=== PATIENT | female | born 1960 | race Two or more races ===

== ENCOUNTER 2023-06-15 22:54 | Emergency (ER) | payer MEDICAID, OTHER ==
[~2023-06-15] VITALS: Ht 157.5 cm; Wt 91.0 kg
[2023-06-16] VITALS (10 sets, daily range): BP systolic 98–138; BP diastolic 47–69; PULSE 70–76; RESP 10–16; TEMP 97.6–98.4; O2SAT 99
[2023-06-16 00:04] LABS: Basophils # (auto) 0 10 ^3/uL (0-0.2); Eosinophils # (auto) 0 10 ^3/uL (0-0.8); Monocytes # (auto) 0.3 10 ^3/uL (0-1.3); Monocytes % (auto) 9.9 % (0.0-12.0)
[2023-06-16 00:06] LABS: Basophils % (auto) 0.4 % (0.0-2.0); Eosinophils % (auto) 0.7 % (0.0-7.0); Lymphocytes # (auto) 1.3 10 ^3/uL (0.4-5.4); Lymphocytes % (auto) 41.4 % (10.0-50.0); Mean Corpuscular Hemoglobin 36.5 pg (28.0-32.0); Mean Corpuscular Hgb Conc. 33.7 g/dL (32.0-36.0); Mean Corpuscular Volume 108.4 fL (80.0-100.0); Neutrophils # (auto) 1.4 10 ^3/uL (1.6-8.6); Neutrophils % (auto) 47.6 % (37.0-80.0); Nucleated Red Blood Cells % 0.2 %; Red Blood Cells 1.84 10^6/uL (4.0-5.20)
[2023-06-16 00:13] LABS: Red Cell Distribution Width 29.7 % (11.8-14.3)
[2023-06-16 00:16] LABS: Hemoglobin 6.7 g/dL (12.2-16.2)
[2023-06-16 00:19] LABS: Alanine Aminotransferase 10 U/L (7-40); Albumin 4.4 g/dL (3.2-4.8); Alkaline Phosphatase 81 U/L (46-116); Anion Gap 7.7 (5-15); Aspartate Aminotransferase < 8 U/L (13-40); BUN/Creatinine Ratio 7.6 (10.0-20.0); Bilirubin, Total 0.4 mg/dL (0.2-1.0); Blood Urea Nitrogen 8 mg/dL (9-23); Calcium 9.2 mg/dL (8.7-10.4); Carbon Dioxide 23.3 mmol/L (20-30); Chloride 108 mmol/L (98-107); Glucose 156 mg/dL (74-106); Potassium 3.9 mmol/L (3.5-5.1); Sodium 139 mmol/L (136-145)
[2023-06-16 01:39] LABS: Platelet Estimate Adequate
[2023-06-16 01:40] LABS: Anisocytosis Marked; Macrocytosis Moderate
== END 2023-06-16 02:11 | disposition home or self-care (01) ==
LOC: ER 22:57
DX: D53.9 Nutritional anemia, unspecified (principal)
CPT/HCPCS: 36415; 36430; 71045; 80053; 83880; 84484; 85025; 86850; 86900; 86901; 93005; 99285; P9016; 86922

== ENCOUNTER 2023-06-28 21:46 | Inpatient (IN) | payer MEDICAID ==
[~2023-06-28] VITALS: Ht 157.5 cm; Wt 90.7 kg
[2023-06-28] MEDS ORDERED: ACCU-CHEK COMFORT CURVE STRIP VI ONE (22:00)
[2023-06-29 00:03] LABS: Urine Bacteria NONE SEEN /hpf (None Seen); Urine Blood Negative /uL (Negative); Urine Clarity Clear (Clear); Urine Color Yellow (Yellow); Urine Protein, UAD Negative (Negative); Urine Specific Gravity 1.034 (1.001-1.035); Urine Urobilinogen Normal (Negative); Urine WBC <1 /hpf (0 - 5); Urine pH 6.5 (5.0-8.0)
[2023-06-29 00:23] LABS: Basophils # (auto) 0 10 ^3/uL (0-0.2); Eosinophils # (auto) 0 10 ^3/uL (0-0.8); Hematocrit 24.1 % (36.0-46.0); Lymphocytes # (auto) 1.8 10 ^3/uL (0.4-5.4); Monocytes # (auto) 0.4 10 ^3/uL (0-1.3); Neutrophils # (auto) 1.5 10 ^3/uL (1.6-8.6); White Blood Cell 3.7 10^3/uL (4.4-10.8)
[2023-06-29 00:24] LABS: Basophils % (auto) 0.2 % (0.0-2.0); Eosinophils % (auto) 0.2 % (0.0-7.0); Hemoglobin 8.2 g/dL (12.2-16.2); Lymphocytes % (auto) 48.6 % (10.0-50.0); Mean Corpuscular Hemoglobin 34.2 pg (28.0-32.0); Mean Corpuscular Hgb Conc. 33.9 g/dL (32.0-36.0); Monocytes % (auto) 10.2 % (0.0-12.0); Neutrophils % (auto) 40.8 % (37.0-80.0); Nucleated Red Blood Cells % 0.3 %; Red Blood Cells 2.38 10^6/uL (4.0-5.20)
[2023-06-29 00:36] LABS: Alanine Aminotransferase 13 U/L (7-40); Albumin 4.3 g/dL (3.2-4.8); Alkaline Phosphatase 76 U/L (46-116); Anion Gap 6.2 (5-15); Aspartate Aminotransferase 12 U/L (13-40); BUN/Creatinine Ratio 9.8 (10.0-20.0); Bilirubin, Total 0.3 mg/dL (0.2-1.0); Blood Urea Nitrogen 13 mg/dL (9-23); Calcium 9.2 mg/dL (8.7-10.4); Carbon Dioxide 26.8 mmol/L (20-30); Chloride 107 mmol/L (98-107); Glucose 147 mg/dL (74-106); Potassium 3.7 mmol/L (3.5-5.1); Red Cell Distribution Width 27.6 % (11.8-14.3); Sodium 140 mmol/L (136-145); Total Protein 7.8 g/dL (5.7-8.2)
[2023-06-29 01:50] LABS: Anisocytosis Moderate; Platelet Estimate Adequate
[2023-06-29 01:51] LABS: Large Platelets FEW; Macrocytosis Slight; Polychromasia Slight
[2023-06-29] MEDS ORDERED: MORPHINE SULFATE 4 MG/ML SYR/VIAL IV ONE (04:15)
[2023-06-29] MEDS ORDERED: PANTOPRAZOLE 40 MG/10 ML VIAL INJ IV ONE (04:15)
[2023-06-29] MEDS ORDERED: ONDANSETRON HCL 4 MG/2 ML VIAL IV ONE (04:15)
[2023-06-29] MEDS ORDERED: ASPirin 81 mg TAB PO ONE (05:00)
[2023-06-29] MEDS ORDERED: HYDROcodone-ACET 5/325MG TAB PO ONE (05:00)
[2023-06-29] MEDS ORDERED: MORPHINE SULFATE INJ 2 MG/ml SYRG IV PRN (05:15)
[2023-06-29] MEDS ORDERED: DEXTROSE (50%) 50ML SYRG IV PRN (05:15)
[2023-06-29] MEDS ORDERED: NITROGLYCERIN 0.4 MG SL TAB SL PRN (05:15)
[2023-06-29] MEDS ORDERED: ONDANSETRON HCL 4 MG/2 ML VIAL IV PRN (05:15)
[2023-06-29] MEDS ORDERED: ACETAMINOPHEN 325 MG TAB PO PRN (05:15)
[2023-06-29] MEDS: ACCU-CHEK COMFORT CURVE STRIP VI SCH ×4 (06:38→23:49)
[2023-06-29] MEDS: InsuLIN REG 1unit/0.01ml Soln (100units/ml) SC SCH ×4 (06:38→23:35)
[2023-06-29 06:41] LABS: INR 1.04 (0.9-1.15); Partial Thromboplastin Time 27.3 SEC (24.5-34.5); Prothrombin Time 10.9 sec (9.3-11.8)
[2023-06-29 06:42] LABS: % Iron Saturation 73.6 % (15-50)
[2023-06-29 07:45] LABS: Triglycerides 250 mg/dL (< 150)
[2023-06-29 07:46] LABS: LDL Cholesterol 90 mg/dL (< 100)
[2023-06-29 07:47] LABS: Cholesterol 166 mg/dL (< 200); HDL Cholesterol 39 mg/dL (40-59)
[2023-06-29 07:57] VITALS: PULSE 71; RESP 15; O2SAT 97
[2023-06-29] MEDS: ASPirin 81 mg TAB PO SCH (08:08)
[2023-06-29] MEDS: FERROUS SULFATE 325mg EC TAB PO SCH ×2 (08:11→18:00)
[2023-06-29] MEDS ORDERED: NITROGLYCERIN 0.4 MG SL TAB SL ONE (10:00)
[2023-06-29] MEDS ORDERED: ADENOSINE 76 MG in GIVE UN-DILUTED 0 ML IV STA (10:12)
[2023-06-29 10:55] LABS: Folate (Folic Acid) 11.94 ng/mL (>5.38)
[2023-06-29 13:00] VITALS: BP 119/66; PULSE 75; RESP 20; TEMP 97.8; O2SAT 97
[2023-06-29] MEDS: PANTOPRAZOLE 40 MG TAB PO SCH (14:21)
[2023-06-29] MEDS: NIFEdipine ER 30 MG TAB PO SCH (14:21)
[2023-06-29] MEDS: METOPROLOL SUCCINATE XL 50 MG TAB PO SCH (14:23)
[2023-06-29] MEDS: LISINOPRIL 20 MG TAB PO SCH (14:23)
[2023-06-29 14:30] VITALS: BP 119/61; PULSE 75; RESP 20; TEMP 97.9; O2SAT 97
[2023-06-29] MEDS ORDERED: CITA10TA8 PO (16:07)
[2023-06-29] MEDS ORDERED: GABA-339 PO (16:07)
[2023-06-29] MEDS ORDERED: METO25TA5 PO (16:07)
[2023-06-29] MEDS ORDERED: LISI40TA16 PO (16:07)
[2023-06-29 17:00] VITALS: BP 127/64; PULSE 72; RESP 18; TEMP 97.8; O2SAT 97
[2023-06-29 20:20] VITALS: PULSE 79
[2023-06-29] MEDS ORDERED: ATORVASTATIN 20 MG TAB PO SCH (22:00)
[2023-06-29 23:24] VITALS: BP 112/56; PULSE 80; RESP 18; TEMP 98.2; O2SAT 96
[2023-06-30 05:08] VITALS: BP 110/45; PULSE 77; RESP 18; TEMP 97.8; O2SAT 97
[2023-06-30] MEDS: InsuLIN REG 1unit/0.01ml Soln (100units/ml) SC SCH ×2 (05:29→12:04)
[2023-06-30] MEDS: ACCU-CHEK COMFORT CURVE STRIP VI SCH ×2 (05:29→12:03)
[2023-06-30 06:55] LABS: Chloride 110 mmol/L (98-107); Potassium 3.5 mmol/L (3.5-5.1); Sodium 142 mmol/L (136-145)
[2023-06-30 06:56] LABS: Anion Gap 5.1 (5-15); Carbon Dioxide 26.9 mmol/L (20-30)
[2023-06-30 06:57] LABS: Calcium 8.7 mg/dL (8.5-10.1)
[2023-06-30 07:01] LABS: BUN/Creatinine Ratio 13.5 (10.0-20.0); Blood Urea Nitrogen 12 mg/dL (9-23); Glucose 103 mg/dL (74-106)
[2023-06-30 07:26] LABS: Hemoglobin 7.3 g/dL (12.2-16.2); White Blood Cell 2.8 10^3/uL (4.4-10.8)
[2023-06-30 07:28] LABS: Hematocrit 20.9 % (36.0-46.0); Mean Corpuscular Hemoglobin 35.4 pg (28.0-32.0); Mean Corpuscular Hgb Conc. 34.9 g/dL (32.0-36.0); Mean Corpuscular Volume 101.4 fL (80.0-100.0); Red Blood Cells 2.07 10^6/uL (4.0-5.20)
[2023-06-30 07:36] LABS: Red Cell Distribution Width 27.1 % (11.8-14.3)
[2023-06-30 07:38] LABS: Band Neutrophils % (manual) 0; Basophils % (manual) 0 (0.0-2.0); Blast Cells 0; Eosinophils % (manual) 0 (0-7); Metamyelocytes % 0; Myelocytes % 0; Promyelocytes % 0; Reactive Lymphocytes 0
[2023-06-30 08:00] VITALS: PULSE 74
[2023-06-30 09:00] VITALS: BP 114/60; PULSE 76; RESP 15; TEMP 98; O2SAT 94
[2023-06-30] MEDS: FERROUS SULFATE 325mg EC TAB PO SCH (09:14)
[2023-06-30] MEDS: ASPirin 81 mg TAB PO SCH (09:15)
[2023-06-30] MEDS: NIFEdipine ER 30 MG TAB PO SCH (09:15)
[2023-06-30] MEDS: PANTOPRAZOLE 40 MG TAB PO SCH (09:15)
[2023-06-30] MEDS: METOPROLOL SUCCINATE XL 50 MG TAB PO SCH (09:17)
[2023-06-30] MEDS: LISINOPRIL 20 MG TAB PO SCH (09:18)
[2023-06-30 11:40] VITALS: BP 114/60; PULSE 76; RESP 15; TEMP 98; O2SAT 94
[2023-06-30 12:25] LABS: Lymphocytes % (manual) 62 (10.0-50.0); Monocytes % (manual) 9 (0-12)
[2023-06-30 12:26] LABS: Platelet Estimate Decreased
== END 2023-06-30 13:40 | disposition home or self-care (01) | DRG 203 ==
LOC: ER 21:47 → TELE 06-29 05:21 → TELE-CENTR 06-29 10:55
PROVIDERS: ADMIT Nurse Practitioner; ATTEND Internal Medicine Pulmonary Disease
DX: M94.0 Chondrocostal junction syndrome [Tietze] (principal); I24.9 Acute ischemic heart disease, unspecified; N17.9 Acute kidney failure, unspecified; I13.0 Hypertensive heart and chronic kidney disease with heart failure and stage 1 through stage 4 chronic kidney disease, or unspecified chronic kidney disease; I50.30 Unspecified diastolic (congestive) heart failure; I69.351 Hemiplegia and hemiparesis following cerebral infarction affecting right dominant side; E11.22 Type 2 diabetes mellitus with diabetic chronic kidney disease; D50.0 Iron deficiency anemia secondary to blood loss (chronic); E78.5 Hyperlipidemia, unspecified; E66.9 Obesity, unspecified; N18.30 Chronic kidney disease, stage 3 unspecified; F17.200 Nicotine dependence, unspecified, uncomplicated; Z79.4 Long term (current) use of insulin; Z68.36 Body mass index [BMI] 36.0-36.9, adult
CPT/HCPCS: 36415; 71045; 78452; 80048; 80053; 80061; 81001; 82607; 82728; 82746; 82962; 83036; 83540; 83550; 83690; 83735; 83880; 84443; 84484; 85007; 85025; 85027; 85045; 85610; 85730; 93017; 93306; 99291; G0378; J0153; J1815

== ENCOUNTER 2023-08-01 10:29 | Inpatient (IN) | payer MEDICAID ==
[2023-08-01] VITALS (10 sets, daily range): BP systolic 82–119; BP diastolic 29–80; PULSE 102–147; RESP 16–35; TEMP 97.8–98.4; O2SAT 92–100
[~2023-08-01] VITALS: Ht 157.5 cm; Wt 97.0 kg
[~2023-08-01 10:29] MED LIST: CITA10TA8 PO; GABA-339 PO; LISI40TA16 PO; METO25TA5 PO
[2023-08-01 11:17] LABS: Basophils # (auto) 0 10 ^3/uL (0-0.2); Eosinophils # (auto) 0 10 ^3/uL (0-0.8); Monocytes # (auto) 0.6 10 ^3/uL (0-1.3)
[2023-08-01 11:19] LABS: Basophils % (auto) 0.1 % (0.0-2.0); Hematocrit 14.3 % (36.0-46.0); Lymphocytes # (auto) 0.6 10 ^3/uL (0.4-5.4); Lymphocytes % (auto) 8.9 % (10.0-50.0); Mean Corpuscular Hemoglobin 36.7 pg (28.0-32.0); Mean Corpuscular Volume 108.2 fL (80.0-100.0); Monocytes % (auto) 10.1 % (0.0-12.0); Neutrophils # (auto) 5.1 10 ^3/uL (1.6-8.6); Neutrophils % (auto) 80.9 % (37.0-80.0); Nucleated Red Blood Cells % 0.2 %; Red Blood Cells 1.32 10^6/uL (4.0-5.20); White Blood Cell 6.4 10^3/uL (4.4-10.8)
[2023-08-01 11:25] LABS: Hemoglobin 4.9 g/dL (12.2-16.2); Red Cell Distribution Width 28.1 % (11.8-14.3)
[2023-08-01 11:31] LABS: Alanine Aminotransferase 17 U/L (7-40); Alkaline Phosphatase 68 U/L (46-116); Anion Gap 9 (5-15); Aspartate Aminotransferase 13 U/L (13-40); BUN/Creatinine Ratio 11.9 (10.0-20.0); Bilirubin, Total 0.7 mg/dL (0.2-1.0); Blood Urea Nitrogen 13 mg/dL (9-23); Calcium 8.4 mg/dL (8.5-10.1); Carbon Dioxide 23 mmol/L (20-30); Chloride 107 mmol/L (98-107); Glucose 271 mg/dL (74-106); Potassium 3.8 mmol/L (3.5-5.1); Sodium 139 mmol/L (136-145); Total Protein 7.3 g/dL (5.7-8.2)
[2023-08-01] MEDS ORDERED: ONDANSETRON HCL 4 MG/2 ML VIAL IV ONE (12:00)
[2023-08-01] MEDS ORDERED: HYDROmorphone HCL 2 MG/ML VL/or syr IV ONE (12:00)
[2023-08-01] MEDS ORDERED: SODIUM CHLORIDE 0.9% 1,000 ML IVB ONE (12:00)
[2023-08-01] MEDS ORDERED: PANTOPRAZOLE 40 MG/10 ML VIAL INJ IV ONE (12:00)
[2023-08-01 12:12] LABS: % Iron Saturation 49.6 % (15-50)
[2023-08-01 12:29] LABS: Ferritin > 1650.0 ng/mL (10-291)
[2023-08-01 12:29] LABS: Lactic Acid w/Reflex 2.4 mmol/L (0.4-2.0)
[2023-08-01] MEDS ORDERED: ONDANSETRON HCL 4 MG/2 ML VIAL IV PRN (13:45)
[2023-08-01] MEDS ORDERED: ACETAMINOPHEN 325 MG TAB PO PRN (13:45)
[2023-08-01] MEDS ORDERED: DOCUSATE SOD 100 MG CAP PO PRN (13:45)
[2023-08-01] MEDS ORDERED: MORPHINE SULFATE INJ 2 MG/ml SYRG IV PRN ×2 (13:45)
[2023-08-01] MEDS ORDERED: DEXTROSE (50%) 50ML SYRG IV PRN (13:45)
[2023-08-01] MEDS ORDERED: NITROGLYCERIN 0.4 MG SL TAB SL PRN (13:45)
[2023-08-01 14:15] LABS: INR 1.19 (0.9-1.15); Prothrombin Time 12.4 sec (9.3-11.8)
[2023-08-01] MEDS ORDERED: cefTRIAXone 1GM/50ML D5W 50 ML IV ONE (14:30)
[2023-08-01] MEDS: SODIUM CHLORIDE 0.9% 1,000 ML IV SCH (14:45)
[2023-08-01] MEDS ORDERED: METO25TA93 PO (14:50)
[2023-08-01] MEDS ORDERED: EMPA1TAB PO (14:50)
[2023-08-01] MEDS ORDERED: METF-370 PO (14:50)
[2023-08-01] MEDS ORDERED: ATOR10TA52 PO (14:50)
[2023-08-01] MEDS ORDERED: NIFE1TAB31 PO (14:50)
[2023-08-01] MEDS ORDERED: AZITHROMYCIN 500MG/ 250ML 250 ML IV ONE (15:30)
[2023-08-01] MEDS: ACCU-CHEK COMFORT CURVE STRIP VI SCH ×2 (17:00→22:00)
[2023-08-01] MEDS: InsuLIN REG 1unit/0.01ml Soln (100units/ml) SC SCH ×2 (17:00→22:35)
[2023-08-01 21:54] LABS: Hemoglobin 6.6 g/dL (12.2-16.2)
[2023-08-01] MEDS: ATORVASTATIN 20 MG TAB PO SCH (22:35)
[2023-08-01] MEDS: TEMAZEPAM 15 MG CAP PO PRN (22:35)
[2023-08-01] MEDS: HYDROcodone-ACET 5/325MG TAB PO PRN (22:36)
[2023-08-02] VITALS (16 sets, daily range): BP systolic 86–124; BP diastolic 36–71; PULSE 88–109; RESP 15–24; TEMP 97.8–101; O2SAT 90–100
[2023-08-02 04:20] LABS: Urine Bacteria NONE SEEN /hpf (None Seen); Urine Blood Negative /uL (Negative); Urine Clarity HAZY (Clear); Urine Color Yellow (Yellow); Urine Hyaline Cast MANY /lpf (0 - 2); Urine Mucus FEW (None Seen); Urine Protein, UAD 1+ (Negative); Urine Specific Gravity 1.021 (1.001-1.035); Urine Urobilinogen Normal (Negative); Urine WBC 6 /hpf (0 - 5); Urine pH 5.5 (5.0-8.0)
[2023-08-02] MEDS: SODIUM CHLORIDE 0.9% 1,000 ML IV SCH ×2 (04:34→17:06)
[2023-08-02 05:27] LABS: Basophils # (auto) 0 10 ^3/uL (0-0.2); Basophils % (auto) 0.1 % (0.0-2.0); Eosinophils # (auto) 0 10 ^3/uL (0-0.8); Hematocrit 24.8 % (36.0-46.0); Hemoglobin 8.6 g/dL (12.2-16.2); Lymphocytes # (auto) 0.9 10 ^3/uL (0.4-5.4); Lymphocytes % (auto) 11.9 % (10.0-50.0); Mean Corpuscular Hgb Conc. 34.8 g/dL (32.0-36.0); Mean Corpuscular Volume 97.7 fL (80.0-100.0); Monocytes # (auto) 0.7 10 ^3/uL (0-1.3); Neutrophils # (auto) 5.8 10 ^3/uL (1.6-8.6); Red Blood Cells 2.54 10^6/uL (4.0-5.20); White Blood Cell 7.4 10^3/uL (4.4-10.8)
[2023-08-02 05:35] LABS: Red Cell Distribution Width 22.4 % (11.8-14.3)
[2023-08-02 05:43] LABS: Alanine Aminotransferase 38 U/L (7-40); Albumin 3.6 g/dL (3.2-4.8); Alkaline Phosphatase 74 U/L (46-116); Anion Gap 7 (5-15); Aspartate Aminotransferase 72 U/L (13-40); BUN/Creatinine Ratio 20.9 (10.0-20.0); Bilirubin, Total 0.8 mg/dL (0.2-1.0); Blood Urea Nitrogen 23 mg/dL (9-23); Calcium 7.6 mg/dL (8.7-10.4); Carbon Dioxide 24 mmol/L (20-30); Chloride 107 mmol/L (98-107); Glucose 126 mg/dL (74-106); Potassium 4.4 mmol/L (3.5-5.1); Sodium 138 mmol/L (136-145); Total Protein 6.6 g/dL (5.7-8.2)
[2023-08-02] MEDS ORDERED: FUROSEMIDE 40 MG/4 ML VIAL IV ONE (06:00)
[2023-08-02] MEDS ORDERED: ENOXAPARIN SOD 100 MG/1 ML SYRINGE SC ONE (06:15)
[2023-08-02] MEDS: HYDROcodone-ACET 5/325MG TAB PO PRN (06:20)
[2023-08-02] MEDS: ACCU-CHEK COMFORT CURVE STRIP VI SCH ×4 (06:45→21:08)
[2023-08-02] MEDS: InsuLIN REG 1unit/0.01ml Soln (100units/ml) SC SCH ×4 (06:45→21:09)
[2023-08-02 07:00] LABS: COVID19 ANTIGEN SOFIA FIA NEGATIVE (NEGATIVE)
[2023-08-02] MEDS ORDERED: IOHEXOL 350 MG/ML 100ML IJ ONE (07:27)
[2023-08-02] MEDS: cefTRIAXone 1GM/50ML D5W 50 ML IV SCH (09:30)
[2023-08-02] MEDS ORDERED: NIFEdipine ER 30 MG TAB PO SCH (10:00)
[2023-08-02] MEDS ORDERED: METOPROLOL SUCCINATE XL 50 MG TAB PO SCH (10:00)
[2023-08-02] MEDS ORDERED: LISINOPRIL 20 MG TAB PO SCH (10:00)
[2023-08-02] MEDS: AZITHROMYCIN 500MG/ 250ML 250 ML IV SCH (10:29)
[2023-08-02] MEDS: GABAPENTIN 300 MG CAP PO SCH (10:30)
[2023-08-02] MEDS: ASPirin 81 mg TAB PO SCH (10:30)
[2023-08-02] MEDS: PANTOPRAZOLE 40 MG TAB PO SCH (10:30)
[2023-08-02] MEDS: CITALOPRAM HYDROBR 20 MG TAB PO SCH (10:30)
[2023-08-02] MEDS: CARVEDILOL 12.5 MG TAB PO SCH ×2 (10:40→20:55)
[2023-08-02] MEDS: TEMAZEPAM 15 MG CAP PO PRN (20:54)
[2023-08-02] MEDS: ATORVASTATIN 20 MG TAB PO SCH (20:54)
[2023-08-03] VITALS (11 sets, daily range): BP systolic 102–127; BP diastolic 55–60; PULSE 77–93; RESP 14–19; TEMP 98.1–98.9; O2SAT 93–100
[2023-08-03] MEDS: ACCU-CHEK COMFORT CURVE STRIP VI SCH ×4 (06:13→22:00)
[2023-08-03 06:14] LABS: Basophils # (auto) 0 10 ^3/uL (0-0.2); Basophils % (auto) 0.1 % (0.0-2.0); Eosinophils # (auto) 0 10 ^3/uL (0-0.8); Hemoglobin 7.6 g/dL (12.2-16.2); Lymphocytes % (auto) 15.4 % (10.0-50.0); Monocytes # (auto) 0.6 10 ^3/uL (0-1.3); Neutrophils # (auto) 4.9 10 ^3/uL (1.6-8.6); White Blood Cell 6.5 10^3/uL (4.4-10.8)
[2023-08-03 06:15] LABS: Mean Corpuscular Hemoglobin 33.9 pg (28.0-32.0); Mean Corpuscular Hgb Conc. 34.5 g/dL (32.0-36.0); Mean Corpuscular Volume 98.3 fL (80.0-100.0); Monocytes % (auto) 9.3 % (0.0-12.0); Neutrophils % (auto) 75.2 % (37.0-80.0); Nucleated Red Blood Cells % 0.1 %; Red Blood Cells 2.24 10^6/uL (4.0-5.20)
[2023-08-03 06:17] LABS: Red Cell Distribution Width 22.4 % (11.8-14.3)
[2023-08-03 06:28] LABS: % Iron Saturation 48.1 % (15-50); Alanine Aminotransferase 45 U/L (7-40); Albumin 3.6 g/dL (3.2-4.8); Alkaline Phosphatase 62 U/L (46-116); Anion Gap 9 (5-15); Aspartate Aminotransferase 52 U/L (13-40); BUN/Creatinine Ratio 15.1 (10.0-20.0); Bilirubin, Total 0.9 mg/dL (0.2-1.0); Blood Urea Nitrogen 13 mg/dL (9-23); Calcium 8.1 mg/dL (8.5-10.1); Carbon Dioxide 21 mmol/L (20-30); Chloride 105 mmol/L (98-107); Glucose 180 mg/dL (74-106); Potassium 3.8 mmol/L (3.5-5.1); Sodium 135 mmol/L (136-145); Total Protein 6.7 g/dL (5.7-8.2)
[2023-08-03] MEDS: SODIUM CHLORIDE 0.9% 1,000 ML IV SCH ×2 (06:47→20:05)
[2023-08-03] MEDS: IPRATROPIUM BROM 0.5 MG/2.5ML INH SOL NEB PRN (06:48)
[2023-08-03] MEDS: InsuLIN REG 1unit/0.01ml Soln (100units/ml) SC SCH ×4 (06:48→22:03)
[2023-08-03] MEDS: ALBUTEROL SULF 2.5 MG/0.5ML(0.5%) NEB SOLN NEB PRN (06:48)
[2023-08-03] MEDS: CARVEDILOL 12.5 MG TAB PO SCH ×2 (09:42→21:59)
[2023-08-03] MEDS: CITALOPRAM HYDROBR 20 MG TAB PO SCH (09:42)
[2023-08-03] MEDS: ASPirin 81 mg TAB PO SCH (09:42)
[2023-08-03] MEDS: PANTOPRAZOLE 40 MG TAB PO SCH (09:42)
[2023-08-03] MEDS: GABAPENTIN 300 MG CAP PO SCH (09:42)
[2023-08-03] MEDS ORDERED: ENOXAPARIN SOD 100 MG/1 ML SYRINGE SC SCH (10:00)
[2023-08-03] MEDS: AZITHROMYCIN 500MG/ 250ML 250 ML IV SCH (10:26)
[2023-08-03] MEDS: cefTRIAXone 1GM/50ML D5W 50 ML IV SCH (10:26)
[2023-08-03] MEDS: FUROSEMIDE 40 MG/4 ML VIAL IV SCH (10:27)
[2023-08-03 10:56] LABS: Triglycerides 95 mg/dL (< 150)
[2023-08-03 10:57] LABS: LDL Cholesterol 61 mg/dL (< 100)
[2023-08-03 10:58] LABS: Cholesterol 119 mg/dL (< 200); HDL Cholesterol 39 mg/dL (40-59)
[2023-08-03] MEDS: ATORVASTATIN 20 MG TAB PO SCH (22:00)
[2023-08-04] VITALS (13 sets, daily range): BP systolic 103–119; BP diastolic 44–63; PULSE 81–92; RESP 16–20; TEMP 97.6–98.8; O2SAT 93–100
[2023-08-04] MEDS: TEMAZEPAM 15 MG CAP PO PRN (00:49)
[2023-08-04] MEDS: ACCU-CHEK COMFORT CURVE STRIP VI SCH ×4 (06:13→22:50)
[2023-08-04] MEDS: InsuLIN REG 1unit/0.01ml Soln (100units/ml) SC SCH ×4 (06:26→22:41)
[2023-08-04] MEDS: IPRATROPIUM BROM 0.5 MG/2.5ML INH SOL NEB PRN (06:32)
[2023-08-04] MEDS: ALBUTEROL SULF 2.5 MG/0.5ML(0.5%) NEB SOLN NEB PRN (06:32)
[2023-08-04 06:49] LABS: Basophils # (auto) 0 10 ^3/uL (0-0.2); Basophils % (auto) 0.1 % (0.0-2.0); Eosinophils # (auto) 0 10 ^3/uL (0-0.8); Eosinophils % (auto) 0.3 % (0.0-7.0); Hematocrit 42.1 % (36.0-46.0); Hemoglobin 13.8 g/dL (12.2-16.2); Lymphocytes # (auto) 1.9 10 ^3/uL (0.4-5.4); Lymphocytes % (auto) 17.9 % (10.0-50.0); Mean Corpuscular Hemoglobin 30.9 pg (28.0-32.0); Mean Corpuscular Hgb Conc. 32.9 g/dL (32.0-36.0); Mean Corpuscular Volume 93.8 fL (80.0-100.0); Monocytes # (auto) 1.1 10 ^3/uL (0-1.3); Neutrophils # (auto) 7.7 10 ^3/uL (1.6-8.6); Neutrophils % (auto) 71.7 % (37.0-80.0); Nucleated Red Blood Cells % 0.1 %; Red Blood Cells 4.49 10^6/uL (4.0-5.20); Red Cell Distribution Width 13.7 % (11.8-14.3); White Blood Cell 10.7 10^3/uL (4.4-10.8)
[2023-08-04] MEDS: CITALOPRAM HYDROBR 20 MG TAB PO SCH (09:12)
[2023-08-04] MEDS: cefTRIAXone 1GM/50ML D5W 50 ML IV SCH (09:12)
[2023-08-04] MEDS: PANTOPRAZOLE 40 MG TAB PO SCH (09:12)
[2023-08-04] MEDS: GABAPENTIN 300 MG CAP PO SCH (09:12)
[2023-08-04] MEDS: CARVEDILOL 12.5 MG TAB PO SCH ×2 (09:13→22:47)
[2023-08-04] MEDS: SODIUM CHLORIDE 0.9% 1,000 ML IV SCH ×2 (09:13→22:51)
[2023-08-04] MEDS: AZITHROMYCIN 500MG/ 250ML 250 ML IV SCH (09:46)
[2023-08-04] MEDS: FUROSEMIDE 40 MG/4 ML VIAL IV SCH (10:00)
[2023-08-04] MEDS: ATORVASTATIN 20 MG TAB PO SCH (22:44)
[2023-08-05] VITALS (12 sets, daily range): BP systolic 105–131; BP diastolic 51–68; PULSE 62–86; RESP 16–20; TEMP 97.4–98.8; O2SAT 95–99
[2023-08-05 06:23] LABS: Basophils # (auto) 0 10 ^3/uL (0-0.2); Basophils % (auto) 0.1 % (0.0-2.0); Eosinophils # (auto) 0 10 ^3/uL (0-0.8); Lymphocytes # (auto) 0.9 10 ^3/uL (0.4-5.4); Monocytes # (auto) 0.6 10 ^3/uL (0-1.3); White Blood Cell 4.9 10^3/uL (4.4-10.8)
[2023-08-05 06:27] LABS: Eosinophils % (auto) 0.1 % (0.0-7.0); Hematocrit 19.8 % (36.0-46.0); Mean Corpuscular Hemoglobin 34.1 pg (28.0-32.0); Mean Corpuscular Hgb Conc. 34.5 g/dL (32.0-36.0); Monocytes % (auto) 11.6 % (0.0-12.0); Neutrophils # (auto) 3.4 10 ^3/uL (1.6-8.6); Neutrophils % (auto) 70.2 % (37.0-80.0); Nucleated Red Blood Cells % 0.1 %; Red Cell Distribution Width 22.1 % (11.8-14.3)
[2023-08-05] MEDS: InsuLIN REG 1unit/0.01ml Soln (100units/ml) SC SCH ×4 (06:27→21:49)
[2023-08-05] MEDS: ACCU-CHEK COMFORT CURVE STRIP VI SCH ×4 (06:28→21:50)
[2023-08-05 06:35] LABS: Hemoglobin 6.8 g/dL (12.2-16.2)
[2023-08-05] MEDS ORDERED: LIDOCAINE 2%HCL (LOCAL ANESTH.) INJ 10ml MDV ONE (08:43)
[2023-08-05] MEDS ORDERED: fentaNYL CITRATE 100 MCG/2 ML VL IV ONE (08:45)
[2023-08-05] MEDS ORDERED: MIDAZOLAM HCL 2MG/2ML 2ml VIAL (1mg/ml) IV ONE (08:45)
[2023-08-05] MEDS ORDERED: MIDAZOLAM HCL 2MG/2ML 2ml VIAL (1mg/ml) ONE (08:50)
[2023-08-05] MEDS ORDERED: fentaNYL CITRATE 100 MCG/2 ML VL ONE (08:50)
[2023-08-05] MEDS: GABAPENTIN 300 MG CAP PO SCH (10:09)
[2023-08-05] MEDS: cefTRIAXone 1GM/50ML D5W 50 ML IV SCH (10:09)
[2023-08-05] MEDS: CITALOPRAM HYDROBR 20 MG TAB PO SCH (10:09)
[2023-08-05] MEDS: CARVEDILOL 12.5 MG TAB PO SCH ×2 (10:09→21:50)
[2023-08-05] MEDS: PANTOPRAZOLE 40 MG TAB PO SCH (10:09)
[2023-08-05] MEDS: AZITHROMYCIN 500MG/ 250ML 250 ML IV SCH (10:10)
[2023-08-05] MEDS: FUROSEMIDE 40 MG/4 ML VIAL IV SCH (10:10)
[2023-08-05] MEDS: SODIUM CHLORIDE 0.9% 1,000 ML IV SCH (12:05)
[2023-08-05] MEDS: ATORVASTATIN 20 MG TAB PO SCH (21:48)
[2023-08-05] MEDS: ZOLPIDEM TARTRATE 5 MG TAB PO PRN (21:54)
[2023-08-06] VITALS (15 sets, daily range): BP systolic 106–155; BP diastolic 52–77; PULSE 72–81; RESP 16–22; TEMP 98.1–98.9; O2SAT 95–99
[2023-08-06 05:29] LABS: Basophils # (auto) 0 10 ^3/uL (0-0.2); Basophils % (auto) 0.1 % (0.0-2.0); Eosinophils # (auto) 0 10 ^3/uL (0-0.8); Eosinophils % (auto) 0.3 % (0.0-7.0); Hematocrit 20.4 % (36.0-46.0); Hemoglobin 7.1 g/dL (12.2-16.2); Lymphocytes # (auto) 1.2 10 ^3/uL (0.4-5.4); Lymphocytes % (auto) 24.7 % (10.0-50.0); Mean Corpuscular Hemoglobin 33.7 pg (28.0-32.0); Mean Corpuscular Hgb Conc. 34.6 g/dL (32.0-36.0); Mean Corpuscular Volume 97.3 fL (80.0-100.0); Monocytes # (auto) 0.6 10 ^3/uL (0-1.3); Monocytes % (auto) 12.1 % (0.0-12.0); Neutrophils # (auto) 3.2 10 ^3/uL (1.6-8.6); Neutrophils % (auto) 62.8 % (37.0-80.0); Nucleated Red Blood Cells % 0.1 %
[2023-08-06 05:30] LABS: Red Cell Distribution Width 20.7 % (11.8-14.3)
[2023-08-06 05:43] LABS: Alanine Aminotransferase 45 U/L (7-40); Albumin 3.6 g/dL (3.2-4.8); Alkaline Phosphatase 98 U/L (46-116); Anion Gap 5 (5-15); Aspartate Aminotransferase 24 U/L (13-40); BUN/Creatinine Ratio 17.9 (10.0-20.0); Bilirubin, Total 0.5 mg/dL (0.2-1.0); Blood Urea Nitrogen 14 mg/dL (9-23); Calcium 8.4 mg/dL (8.7-10.4); Carbon Dioxide 26 mmol/L (20-30); Chloride 107 mmol/L (98-107); Potassium 3.5 mmol/L (3.5-5.1); Sodium 138 mmol/L (136-145); Total Protein 6.6 g/dL (5.7-8.2)
[2023-08-06] MEDS: ACCU-CHEK COMFORT CURVE STRIP VI SCH ×4 (05:54→21:23)
[2023-08-06] MEDS: SODIUM CHLORIDE 0.9% 1,000 ML IV SCH ×2 (05:54→14:45)
[2023-08-06] MEDS: InsuLIN REG 1unit/0.01ml Soln (100units/ml) SC SCH ×4 (05:55→21:26)
[2023-08-06 07:34] LABS: Glucose 211 mg/dL (74-106)
[2023-08-06 09:35] LABS: Hepatitis B Core Total AB Negative (Negative)
[2023-08-06] MEDS: IPRATROPIUM BROM 0.5 MG/2.5ML INH SOL NEB PRN (09:35)
[2023-08-06] MEDS: ALBUTEROL SULF 2.5 MG/0.5ML(0.5%) NEB SOLN NEB PRN (09:35)
[2023-08-06] MEDS: FUROSEMIDE 40 MG/4 ML VIAL IV SCH (10:28)
[2023-08-06] MEDS: cefTRIAXone 1GM/50ML D5W 50 ML IV SCH (10:29)
[2023-08-06] MEDS: CARVEDILOL 12.5 MG TAB PO SCH ×2 (10:29→21:13)
[2023-08-06] MEDS: GABAPENTIN 300 MG CAP PO SCH (10:29)
[2023-08-06] MEDS: CITALOPRAM HYDROBR 20 MG TAB PO SCH (10:30)
[2023-08-06] MEDS: PANTOPRAZOLE 40 MG TAB PO SCH (10:30)
[2023-08-06 11:01] LABS: Hepatitis A Total Antibody Positive (Negative); Hepatitis B Surface Antibody Negative (Negative); Hepatitis C Antibody Negative (Negative)
[2023-08-06 11:02] LABS: Hepatitis B Surface Antigen Negative (Negative)
[2023-08-06] MEDS: AZITHROMYCIN 500MG/ 250ML 250 ML IV SCH (12:36)
[2023-08-06] MEDS: ATORVASTATIN 20 MG TAB PO SCH (21:12)
[2023-08-06] MEDS: ZOLPIDEM TARTRATE 5 MG TAB PO PRN (21:28)
[2023-08-07] VITALS (8 sets, daily range): BP systolic 113–129; BP diastolic 53–62; PULSE 74–78; RESP 18–20; TEMP 98–98.7; O2SAT 95–98
[2023-08-07] MEDS: ALBUTEROL SULF 2.5 MG/0.5ML(0.5%) NEB SOLN NEB PRN (00:38)
[2023-08-07] MEDS: IPRATROPIUM BROM 0.5 MG/2.5ML INH SOL NEB PRN (00:38)
[2023-08-07] MEDS: SODIUM CHLORIDE 0.9% 1,000 ML IV SCH ×2 (04:05→06:15)
[2023-08-07 05:39] LABS: Basophils # (auto) 0 10 ^3/uL (0-0.2); Basophils % (auto) 0.3 % (0.0-2.0); Eosinophils # (auto) 0 10 ^3/uL (0-0.8); Eosinophils % (auto) 0.5 % (0.0-7.0); Hemoglobin 8.8 g/dL (12.2-16.2); Lymphocytes # (auto) 1.3 10 ^3/uL (0.4-5.4); Lymphocytes % (auto) 21.9 % (10.0-50.0); Mean Corpuscular Hemoglobin 32.4 pg (28.0-32.0); Mean Corpuscular Volume 95.3 fL (80.0-100.0); Monocytes # (auto) 0.8 10 ^3/uL (0-1.3); Monocytes % (auto) 13.9 % (0.0-12.0); Neutrophils # (auto) 3.7 10 ^3/uL (1.6-8.6); Neutrophils % (auto) 63.4 % (37.0-80.0); Nucleated Red Blood Cells % 0.1 %; Red Blood Cells 2.73 10^6/uL (4.0-5.20); White Blood Cell 5.8 10^3/uL (4.4-10.8)
[2023-08-07 05:44] LABS: Red Cell Distribution Width 20.3 % (11.8-14.3)
[2023-08-07] MEDS: ACCU-CHEK COMFORT CURVE STRIP VI SCH ×3 (06:04→17:00)
[2023-08-07] MEDS: InsuLIN REG 1unit/0.01ml Soln (100units/ml) SC SCH ×3 (06:22→17:00)
[2023-08-07] MEDS: GABAPENTIN 300 MG CAP PO SCH (09:42)
[2023-08-07] MEDS: CITALOPRAM HYDROBR 20 MG TAB PO SCH (09:42)
[2023-08-07] MEDS: PANTOPRAZOLE 40 MG TAB PO SCH (09:43)
[2023-08-07] MEDS: CARVEDILOL 12.5 MG TAB PO SCH (09:43)
[2023-08-07] MEDS: FUROSEMIDE 40 MG/4 ML VIAL IV SCH (09:46)
[2023-08-07] MEDS: cefTRIAXone 1GM/50ML D5W 50 ML IV SCH (09:47)
[2023-08-07] MEDS: AZITHROMYCIN 500MG/ 250ML 250 ML IV SCH (10:00)
[2023-08-07] MEDS ORDERED: AZIT500T66 PO (11:55)
[2023-08-07] MEDS ORDERED: LOPE7.5C PO (11:55)
== END 2023-08-07 17:59 | disposition home or self-care (01) | DRG 663 ==
LOC: EDBD 10:29 → ER 10:29 → TELE 13:54 → TELE-WESTW 08-02 10:09
PROVIDERS: ADMIT Nurse Practitioner Family; ATTEND Family Medicine
PROC: 30233N1 Transfusion of Nonautologous Red Blood Cells into Peripheral Vein, Percutaneous Approach (ICD-10-PCS; principal; 2023-08-01)
PROC: 079T3ZX Drainage of Bone Marrow, Percutaneous Approach, Diagnostic (ICD-10-PCS; 2023-08-05)
DX: D53.9 Nutritional anemia, unspecified (principal); J96.01 Acute respiratory failure with hypoxia; I50.23 Acute on chronic systolic (congestive) heart failure; I21.A1 Myocardial infarction type 2; E44.0 Moderate protein-calorie malnutrition; E87.20 Acidosis, unspecified; J18.9 Pneumonia, unspecified organism; I27.20 Pulmonary hypertension, unspecified; I13.0 Hypertensive heart and chronic kidney disease with heart failure and stage 1 through stage 4 chronic kidney disease, or unspecified chronic kidney disease; I69.351 Hemiplegia and hemiparesis following cerebral infarction affecting right dominant side; E66.01 Morbid (severe) obesity due to excess calories; E11.65 Type 2 diabetes mellitus with hyperglycemia; E11.22 Type 2 diabetes mellitus with diabetic chronic kidney disease; Z20.822 Contact with and (suspected) exposure to COVID-19; J98.11 Atelectasis; R04.2 Hemoptysis; F17.210 Nicotine dependence, cigarettes, uncomplicated; I25.10 Atherosclerotic heart disease of native coronary artery without angina pectoris; N18.9 Chronic kidney disease, unspecified; E78.5 Hyperlipidemia, unspecified; Z68.41 Body mass index [BMI] 40.0-44.9, adult; I25.2 Old myocardial infarction; Z80.0 Family history of malignant neoplasm of digestive organs; Z82.49 Family history of ischemic heart disease and other diseases of the circulatory system
CPT/HCPCS: 10005; 36415; 71045; 71275; 72192; 76700; 77012; 80053; 80061; 81001; 82270; 82607; 82728; 82746; 82962; 83010; 83036; 83540; 83550; 83605; 83615; 83690; 83735; 83880; 84484; 85014; 85018; 85025; 85045; 85379; 85384; 85610; 86038; 86704; 86706; 86708; 86803; 86850; 86880; 86900; 86901; 86920; 87040; 87070; 87081; 87086; 87205; 87340; 87426; 93005; 93306; 94640; 96365; 96366; C9113; G0378; J0696; J1815; J2001; J2250; J2405

== ENCOUNTER 2023-09-21 14:56 | Inpatient (IN) | payer MEDICAID ==
[~2023-09-21] VITALS: Ht 157.5 cm; Wt 98.7 kg
[2023-09-21] VITALS (8 sets, daily range): BP systolic 96–112; BP diastolic 34–56; PULSE 85–97; RESP 14–20; TEMP 97.6–101; O2SAT 94–99
[~2023-09-21 14:56] MED LIST changes: +ATOR10TA52 PO; +AZIT500T66 PO; +EMPA1TAB PO; +LOPE7.5C PO; +METF-370 PO; +METO25TA93 PO; +NIFE1TAB31 PO
[2023-09-21 16:07] LABS: Basophils # (auto) 0 10 ^3/uL (0-0.2); Eosinophils # (auto) 0 10 ^3/uL (0-0.8); Eosinophils % (auto) 0.1 % (0.0-7.0); Lymphocytes # (auto) 0.5 10 ^3/uL (0.4-5.4); Monocytes # (auto) 0.3 10 ^3/uL (0-1.3); Neutrophils # (auto) 1.7 10 ^3/uL (1.6-8.6)
[2023-09-21 16:09] LABS: Basophils % (auto) 0.2 % (0.0-2.0); Hematocrit 14.3 % (36.0-46.0); Lymphocytes % (auto) 20.2 % (10.0-50.0); Mean Corpuscular Hemoglobin 34.7 pg (28.0-32.0); Mean Corpuscular Hgb Conc. 33.3 g/dL (32.0-36.0); Mean Corpuscular Volume 104.3 fL (80.0-100.0); Monocytes % (auto) 11.7 % (0.0-12.0); Neutrophils % (auto) 67.8 % (37.0-80.0); Nucleated Red Blood Cells % 0.2 %; Red Blood Cells 1.37 10^6/uL (4.0-5.20); White Blood Cell 2.6 10^3/uL (4.4-10.8)
[2023-09-21 16:28] LABS: Red Cell Distribution Width 28.2 % (11.8-14.3)
[2023-09-21 16:30] LABS: INR 1.1 (0.9-1.15); Partial Thromboplastin Time 24.2 SEC (24.5-34.5); Prothrombin Time 11.5 sec (9.3-11.8)
[2023-09-21 16:32] LABS: Alanine Aminotransferase 24 U/L (7-40); Albumin 3.8 g/dL (3.2-4.8); Alkaline Phosphatase 66 U/L (46-116); Anion Gap 8 (5-15); Aspartate Aminotransferase 27 U/L (13-40); BUN/Creatinine Ratio 15.3 (10.0-20.0); Bilirubin, Total 0.6 mg/dL (0.2-1.0); Blood Urea Nitrogen 11 mg/dL (9-23); Calcium 8.1 mg/dL (8.7-10.4); Carbon Dioxide 23 mmol/L (20-30); Chloride 108 mmol/L (98-107); Glucose 198 mg/dL (74-106); Potassium 3.5 mmol/L (3.5-5.1); Sodium 139 mmol/L (136-145); Total Protein 6.6 g/dL (5.7-8.2)
[2023-09-21 16:33] LABS: Hemoglobin 4.8 g/dL (12.2-16.2)
[2023-09-21 17:12] LABS: Base Excess -0.3 mmol/L (-2.0-2.0)
[2023-09-21] MEDS ORDERED: MORPHINE SULFATE 4 MG/ML SYR/VIAL IV ONE (17:15)
[2023-09-21] MEDS ORDERED: ONDANSETRON HCL 4 MG/2 ML VIAL IV ONE (17:15)
[2023-09-21] MEDS ORDERED: ACETAMINOPHEN 325 MG TAB PO PRN (18:00)
[2023-09-21] MEDS ORDERED: MORPHINE SULFATE INJ 2 MG/ml SYRG IV PRN (18:00)
[2023-09-21] MEDS ORDERED: NITROGLYCERIN 0.4 MG SL TAB SL PRN (18:00)
[2023-09-21] MEDS ORDERED: DOCUSATE SOD 100 MG CAP PO PRN (18:00)
[2023-09-21] MEDS ORDERED: DEXTROSE (50%) 50ML SYRG IV PRN (18:00)
[2023-09-21 18:14] LABS: Folate (Folic Acid) 15.03 ng/mL (>5.38)
[2023-09-21] MEDS ORDERED: ALBUTEROL MEDNEB 2.5 mg/3ml NEB NEB PRN (18:15)
[2023-09-21] MEDS ORDERED: IPRATROPIUM BROM 0.5 MG/2.5ML INH SOL NEB PRN (18:15)
[2023-09-21 18:35] LABS: COVID19 ANTIGEN SOFIA FIA NEGATIVE (NEGATIVE)
[2023-09-21 18:36] LABS: Rapid Influenza A Negative (Negative); Rapid Influenza B Negative (Negative)
[2023-09-21] MEDS: HYDROcodone-ACET 5/325MG TAB PO PRN (20:16)
[2023-09-21] MEDS: ONDANSETRON HCL 4 MG/2 ML VIAL IV PRN (21:16)
[2023-09-21] MEDS: ATORVASTATIN 20 MG TAB PO SCH (23:45)
[2023-09-21] MEDS: GABAPENTIN 300 MG CAP PO SCH (23:45)
[2023-09-21] MEDS: ACCU-CHEK COMFORT CURVE STRIP VI SCH (23:51)
[2023-09-21] MEDS: InsuLIN REG 1unit/0.01ml Soln (100units/ml) SC SCH (23:57)
[2023-09-22] VITALS (8 sets, daily range): BP systolic 93–110; BP diastolic 36–56; PULSE 77–82; RESP 15–20; TEMP 98.3–99.6; O2SAT 95–100
[2023-09-22] MEDS: MORPHINE SULFATE INJ 2 MG/ml SYRG IV PRN ×3 (01:04→10:26)
[2023-09-22] MEDS: ONDANSETRON HCL 4 MG/2 ML VIAL IV PRN ×2 (01:04→06:23)
[2023-09-22 02:39] LABS: Hematocrit 19.9 % (36.0-46.0)
[2023-09-22 03:00] LABS: Hemoglobin 6.8 g/dL (12.2-16.2)
[2023-09-22 05:51] LABS: Basophils # (auto) 0 10 ^3/uL (0-0.2); Basophils % (auto) 0.2 % (0.0-2.0); Eosinophils # (auto) 0 10 ^3/uL (0-0.8); Eosinophils % (auto) 0.1 % (0.0-7.0); Hematocrit 20.7 % (36.0-46.0); Hemoglobin 7.1 g/dL (12.2-16.2); Lymphocytes # (auto) 1.2 10 ^3/uL (0.4-5.4); Lymphocytes % (auto) 35.6 % (10.0-50.0); Mean Corpuscular Hemoglobin 32.9 pg (28.0-32.0); Mean Corpuscular Hgb Conc. 34.1 g/dL (32.0-36.0); Mean Corpuscular Volume 96.7 fL (80.0-100.0); Monocytes # (auto) 0.5 10 ^3/uL (0-1.3); Monocytes % (auto) 15.1 % (0.0-12.0); Neutrophils # (auto) 1.7 10 ^3/uL (1.6-8.6); Nucleated Red Blood Cells % 0.1 %; Red Blood Cells 2.15 10^6/uL (4.0-5.20); White Blood Cell 3.4 10^3/uL (4.4-10.8)
[2023-09-22 05:54] LABS: Red Cell Distribution Width 23.2 % (11.8-14.3)
[2023-09-22] MEDS: ACCU-CHEK COMFORT CURVE STRIP VI SCH ×4 (06:18→20:59)
[2023-09-22 06:19] LABS: Alanine Aminotransferase 22 U/L (7-40); Albumin 3.9 g/dL (3.2-4.8); Alkaline Phosphatase 63 U/L (46-116); Anion Gap 6 (5-15); Aspartate Aminotransferase 24 U/L (13-40); BUN/Creatinine Ratio 17.4 (10.0-20.0); Blood Urea Nitrogen 12 mg/dL (9-23); Calcium 8.3 mg/dL (8.7-10.4); Carbon Dioxide 25 mmol/L (20-30); Chloride 107 mmol/L (98-107); Glucose 160 mg/dL (74-106); Potassium 3.4 mmol/L (3.5-5.1); Sodium 138 mmol/L (136-145)
[2023-09-22] MEDS: InsuLIN REG 1unit/0.01ml Soln (100units/ml) SC SCH ×4 (06:19→21:02)
[2023-09-22 09:28] LABS: Urine Bacteria NONE SEEN /hpf (None Seen); Urine Blood Negative /uL (Negative); Urine Clarity HAZY (Clear); Urine Color Yellow (Yellow); Urine Protein, UAD TRACE (Negative); Urine Specific Gravity 1.023 (1.001-1.035); Urine WBC 35 /hpf (0 - 5)
[2023-09-22] MEDS ORDERED: METOPROLOL SUCCINATE XL 50 MG TAB PO SCH (10:00)
[2023-09-22] MEDS ORDERED: NIFEdipine ER 30 MG TAB PO SCH (10:00)
[2023-09-22] MEDS ORDERED: LISINOPRIL 20 MG TAB PO SCH (10:00)
[2023-09-22] MEDS: GABAPENTIN 300 MG CAP PO SCH ×2 (10:01→20:54)
[2023-09-22] MEDS: EMPAGLIFLOZIN 10 MG TAB PO SCH (10:02)
[2023-09-22] MEDS: CITALOPRAM HYDROBR 20 MG TAB PO SCH (10:06)
[2023-09-22] MEDS: HYDROcodone-ACET 5/325MG TAB PO PRN ×3 (12:12→22:23)
[2023-09-22] MEDS ORDERED: cefTRIAXone 1GM/50ML D5W 50 ML IV ONE (12:30)
[2023-09-22] MEDS ORDERED: FUROSEMIDE 40 MG/4 ML VIAL IV ONE (12:30)
[2023-09-22] MEDS ORDERED: POTASSIUM EFFERVESENT TAB 25 MEQ PO ONE (12:30)
[2023-09-22] MEDS: ATORVASTATIN 20 MG TAB PO SCH (20:54)
[2023-09-23] VITALS (15 sets, daily range): BP systolic 99–126; BP diastolic 47–62; PULSE 83–91; RESP 16–20; TEMP 97.8–99; O2SAT 95–100
[2023-09-23] MEDS: ACCU-CHEK COMFORT CURVE STRIP VI SCH ×4 (06:10→22:00)
[2023-09-23] MEDS: InsuLIN REG 1unit/0.01ml Soln (100units/ml) SC SCH ×4 (06:12→22:00)
[2023-09-23 07:23] LABS: Alanine Aminotransferase 23 U/L (7-40); Albumin 3.5 g/dL (3.2-4.8); Alkaline Phosphatase 62 U/L (46-116); Anion Gap 6 (5-15); Aspartate Aminotransferase 29 U/L (13-40); Blood Urea Nitrogen 16 mg/dL (9-23); Calcium 8.4 mg/dL (8.5-10.1); Carbon Dioxide 25 mmol/L (20-30); Chloride 104 mmol/L (98-107); Cholesterol 96 mg/dL (< 200); Glucose 174 mg/dL (74-106); LDL Cholesterol 49 mg/dL (< 100); Potassium 3.8 mmol/L (3.5-5.1); Sodium 135 mmol/L (136-145); Triglycerides 96 mg/dL (< 150)
[2023-09-23 07:24] LABS: Bilirubin, Total 0.5 mg/dL (0.2-1.0); HDL Cholesterol 30 mg/dL (40-59); Total Protein 6.5 g/dL (5.7-8.2)
[2023-09-23 07:25] LABS: % Iron Saturation 47.5 % (15-50)
[2023-09-23 07:31] LABS: Basophils # (auto) 0 10 ^3/uL (0-0.2); Basophils % (auto) 0.3 % (0.0-2.0); Eosinophils # (auto) 0 10 ^3/uL (0-0.8); Eosinophils % (auto) 0.2 % (0.0-7.0); Lymphocytes # (auto) 1.2 10 ^3/uL (0.4-5.4); Mean Corpuscular Hemoglobin 33.3 pg (28.0-32.0); Monocytes # (auto) 0.4 10 ^3/uL (0-1.3)
[2023-09-23 07:32] LABS: Hematocrit 18.4 % (36.0-46.0); Lymphocytes % (auto) 38.4 % (10.0-50.0); Mean Corpuscular Hgb Conc. 34.1 g/dL (32.0-36.0); Mean Corpuscular Volume 97.6 fL (80.0-100.0); Monocytes % (auto) 14.3 % (0.0-12.0); Neutrophils # (auto) 1.5 10 ^3/uL (1.6-8.6); Neutrophils % (auto) 46.8 % (37.0-80.0); Nucleated Red Blood Cells % 0.3 %; Red Blood Cells 1.89 10^6/uL (4.0-5.20); White Blood Cell 3.1 10^3/uL (4.4-10.8)
[2023-09-23] MEDS ORDERED: CYANOCOBALAMIN (B-12) 1000 MCG/1 ML VIAL IM ONE (08:00)
[2023-09-23] MEDS ORDERED: POTASSIUM EFFERVESENT TAB 25 MEQ PO ONE (08:00)
[2023-09-23] MEDS ORDERED: ERGOCALCIFEROL 50,000 UNIT(1.25MG) CAP PO SCH (08:00)
[2023-09-23 08:05] LABS: Red Cell Distribution Width 24.4 % (11.8-14.3)
[2023-09-23 08:06] LABS: Hemoglobin 6.3 g/dL (12.2-16.2)
[2023-09-23] MEDS: cefTRIAXone 1GM/50ML D5W 50 ML IV SCH (09:03)
[2023-09-23] MEDS: GABAPENTIN 300 MG CAP PO SCH ×2 (09:04→22:48)
[2023-09-23] MEDS: CITALOPRAM HYDROBR 20 MG TAB PO SCH (09:06)
[2023-09-23] MEDS: EMPAGLIFLOZIN 10 MG TAB PO SCH (09:07)
[2023-09-23] MEDS ORDERED: FUROSEMIDE 40 MG/4 ML VIAL IV SCH (10:00)
[2023-09-23 15:26] LABS: Hematocrit 21.1 % (36.0-46.0); Hemoglobin 7.2 g/dL (12.2-16.2)
[2023-09-23] MEDS: FLUTICASONE PROP NASAL SPR 0.05 % (50MCG) 16GM EACHNOSTRI SCH (16:15)
[2023-09-23] MEDS: traMADol HCL 50 MG TAB PO PRN (16:57)
[2023-09-23] MEDS: ATORVASTATIN 20 MG TAB PO SCH (22:49)
[2023-09-24] VITALS (7 sets, daily range): BP systolic 108–121; BP diastolic 47–60; PULSE 81–93; RESP 16–20; TEMP 37.1; O2SAT 98–100
[2023-09-24] MEDS: ACCU-CHEK COMFORT CURVE STRIP VI SCH ×3 (06:26→17:00)
[2023-09-24] MEDS: InsuLIN REG 1unit/0.01ml Soln (100units/ml) SC SCH ×3 (06:31→17:00)
[2023-09-24] MEDS ORDERED: INSULIN LANTUS (GLARGINE) 1 /0.01ml (100units/ml) SC SCH (07:00)
[2023-09-24 07:15] LABS: Anion Gap 6 (5-15); Carbon Dioxide 27 mmol/L (20-30); Chloride 105 mmol/L (98-107); Potassium 3.9 mmol/L (3.5-5.1); Sodium 138 mmol/L (136-145)
[2023-09-24 07:17] LABS: Calcium 8.4 mg/dL (8.7-10.4)
[2023-09-24 07:18] LABS: Basophils # (auto) 0 10 ^3/uL (0-0.2); Eosinophils # (auto) 0 10 ^3/uL (0-0.8); Monocytes # (auto) 0.5 10 ^3/uL (0-1.3); Neutrophils # (auto) 2.1 10 ^3/uL (1.6-8.6); Nucleated Red Blood Cells % 0.2 %; White Blood Cell 3.6 10^3/uL (4.4-10.8)
[2023-09-24 07:21] LABS: Basophils % (auto) 1.2 % (0.0-2.0); Blood Urea Nitrogen 12 mg/dL (9-23); Eosinophils % (auto) 0.5 % (0.0-7.0); Glucose 167 mg/dL (74-106); Hematocrit 22.5 % (36.0-46.0); Hemoglobin 7.5 g/dL (12.2-16.2); Lymphocytes % (auto) 26.2 % (10.0-50.0); Mean Corpuscular Hemoglobin 32.6 pg (28.0-32.0); Mean Corpuscular Hgb Conc. 33.5 g/dL (32.0-36.0); Mean Corpuscular Volume 97.3 fL (80.0-100.0); Monocytes % (auto) 13.2 % (0.0-12.0); Neutrophils % (auto) 58.9 % (37.0-80.0); Red Blood Cells 2.31 10^6/uL (4.0-5.20)
[2023-09-24 07:22] LABS: BUN/Creatinine Ratio 27.3 (10.0-20.0); Magnesium 2.1 mg/dL (1.6-2.6)
[2023-09-24 07:28] LABS: Red Cell Distribution Width 22.1 % (11.8-14.3)
[2023-09-24] MEDS: FLUTICASONE PROP NASAL SPR 0.05 % (50MCG) 16GM EACHNOSTRI SCH (09:38)
[2023-09-24] MEDS: CITALOPRAM HYDROBR 20 MG TAB PO SCH (09:39)
[2023-09-24] MEDS: EMPAGLIFLOZIN 10 MG TAB PO SCH (09:39)
[2023-09-24] MEDS: GABAPENTIN 300 MG CAP PO SCH (09:39)
[2023-09-24] MEDS: cefTRIAXone 1GM/50ML D5W 50 ML IV SCH (09:39)
[2023-09-24] MEDS ORDERED: FUROSEMIDE 40 MG/4 ML VIAL IV SCH (10:00)
[2023-09-24 10:48] LABS: Base Excess 3.7 mmol/L (-2.0-2.0)
[2023-09-24] MEDS: traMADol HCL 50 MG TAB PO PRN (17:25)
== END 2023-09-24 18:53 | disposition home or self-care (01) | DRG 690 ==
LOC: EDBD 14:56 → ER 14:56 → TELE 18:01 → TELE-WESTW 09-22 15:30
PROVIDERS: ADMIT Internal Medicine Pulmonary Disease; ATTEND Emergency Medicine
PROC: 30233N1 Transfusion of Nonautologous Red Blood Cells into Peripheral Vein, Percutaneous Approach (ICD-10-PCS; principal; 2023-09-21)
DX: C92.00 Acute myeloblastic leukemia, not having achieved remission (principal); J96.01 Acute respiratory failure with hypoxia; I21.A1 Myocardial infarction type 2; I50.33 Acute on chronic diastolic (congestive) heart failure; E87.3 Alkalosis; E11.9 Type 2 diabetes mellitus without complications; D53.9 Nutritional anemia, unspecified; I69.351 Hemiplegia and hemiparesis following cerebral infarction affecting right dominant side; I27.20 Pulmonary hypertension, unspecified; Q93.89 Other deletions from the autosomes; I11.0 Hypertensive heart disease with heart failure; D46.9 Myelodysplastic syndrome, unspecified; D47.1 Chronic myeloproliferative disease; E66.01 Morbid (severe) obesity due to excess calories; M25.512 Pain in left shoulder; D63.0 Anemia in neoplastic disease; I08.1 Rheumatic disorders of both mitral and tricuspid valves; Z20.822 Contact with and (suspected) exposure to COVID-19; F32.A Depression, unspecified; E78.5 Hyperlipidemia, unspecified; F17.200 Nicotine dependence, unspecified, uncomplicated; E55.9 Vitamin D deficiency, unspecified; N39.0 Urinary tract infection, site not specified; E87.6 Hypokalemia; Z79.899 Other long term (current) drug therapy; Z68.39 Body mass index [BMI] 39.0-39.9, adult; Z82.49 Family history of ischemic heart disease and other diseases of the circulatory system; Z80.0 Family history of malignant neoplasm of digestive organs; Z79.4 Long term (current) use of insulin; Z71.6 Tobacco abuse counseling; Q92.8 Other specified trisomies and partial trisomies of autosomes
CPT/HCPCS: 36415; 36430; 36600; 71045; 73030; 80048; 80053; 80061; 81001; 82306; 82607; 82728; 82746; 82805; 82962; 83540; 83550; 83735; 83880; 84443; 84484; 85014; 85018; 85025; 85379; 85610; 85730; 86850; 86900; 86901; 86920; 87086; 87426; 87804; 93005; 93970; 94640; 96374; 96375; 99291; G0378; J0696; J1815; J2405

== ENCOUNTER 2023-11-21 15:37 | Emergency (ER) | payer MEDICAID ==
[~2023-11-21] VITALS: Ht 157.5 cm; Wt 86.3 kg
[~2023-11-21 15:37] MED LIST changes: -AZIT500T66 PO; -LISI40TA16 PO; -LOPE7.5C PO; -METO25TA5 PO
[2023-11-21 15:45] VITALS: BP 114/78; PULSE 72; RESP 18; O2SAT 99
== END 2023-11-21 18:44 | disposition left against medical advice (07) ==
LOC: ER 15:37 → EDBD 15:37 → ER 18:44
DX: R42 Dizziness and giddiness (principal); Z53.21 Procedure and treatment not carried out due to patient leaving prior to being seen by health care provider
CPT/HCPCS: 93005

== ENCOUNTER 2024-01-19 16:45 | Emergency (ER) | payer MEDICAID ==
[~2024-01-19] VITALS: Ht 157.5 cm; Wt 81.4 kg
[~2024-01-19 16:45] MED LIST changes: +ALPR0.25 PO; +INSLISPI SC; +LISI40TA16 PO; +TRAZ-228 PO
[2024-01-19 17:17] LABS: Basophils # (auto) 0 10 ^3/uL (0-0.2); Eosinophils # (auto) 0 10 ^3/uL (0-0.8); Hemoglobin 8.5 g/dL (12.2-16.2); Lymphocytes # (auto) 1.2 10 ^3/uL (0.4-5.4); Neutrophils # (auto) 1.3 10 ^3/uL (1.6-8.6); White Blood Cell 2.9 10^3/uL (4.4-10.8)
[2024-01-19 17:20] LABS: Basophils % (auto) 0.6 % (0.0-2.0); Eosinophils % (auto) 0.6 % (0.0-7.0); Lymphocytes % (auto) 41.5 % (10.0-50.0); Mean Corpuscular Hemoglobin 35.9 pg (28.0-32.0); Mean Corpuscular Volume 105.5 fL (80.0-100.0); Monocytes # (auto) 0.3 10 ^3/uL (0-1.3); Monocytes % (auto) 11.8 % (0.0-12.0); Neutrophils % (auto) 45.5 % (37.0-80.0); Nucleated Red Blood Cells % 0.1 %; Red Blood Cells 2.37 10^6/uL (4.0-5.20); Red Cell Distribution Width 26.3 % (11.8-14.3)
[2024-01-19 17:27] LABS: Alanine Aminotransferase 20 U/L (7-40); Albumin 4.1 g/dL (3.2-4.8); Alkaline Phosphatase 63 U/L (46-116); Anion Gap 4 (5-15); Aspartate Aminotransferase 21 U/L (13-40); BUN/Creatinine Ratio 18.3 (10.0-20.0); Bilirubin, Total 0.3 mg/dL (0.2-1.0); Blood Urea Nitrogen 13 mg/dL (9-23); Calcium 9.5 mg/dL (8.7-10.4); Carbon Dioxide 29 mmol/L (20-30); Chloride 105 mmol/L (98-107); Glucose 135 mg/dL (74-106); Potassium 4.3 mmol/L (3.5-5.1); Sodium 138 mmol/L (136-145); Total Protein 7.3 g/dL (5.7-8.2)
[2024-01-19 18:22] LABS: Anisocytosis Moderate; Macrocytosis Moderate; Platelet Estimate Adequate
[2024-01-19] MEDS: KETOROLAC TROMETH 30 MG/ML 1ML VIAL IM ONE (20:07)
[2024-01-19 20:14] VITALS: BP 113/56; PULSE 79; RESP 18; TEMP 98.2; O2SAT 97
== END 2024-01-19 20:13 | disposition home or self-care (01) ==
LOC: ER 16:45
DX: D53.9 Nutritional anemia, unspecified (principal); R07.89 Other chest pain; R53.1 Weakness; I11.0 Hypertensive heart disease with heart failure; I50.9 Heart failure, unspecified; E11.9 Type 2 diabetes mellitus without complications; Z86.73 Personal history of transient ischemic attack (TIA), and cerebral infarction without residual deficits; Z98.890 Other specified postprocedural states; Z79.899 Other long term (current) drug therapy
CPT/HCPCS: 36415; 71045; 80053; 82962; 84484; 85025; 93005; 96372; 99285; J1885

== ENCOUNTER 2024-01-25 19:43 | Emergency (ER) | payer MEDICAID ==
[~2024-01-25] VITALS: Ht 157.5 cm; Wt 87.1 kg
[2024-01-25 20:28] LABS: Basophils # (auto) 0 10 ^3/uL (0-0.2); Basophils % (auto) 0.5 % (0.0-2.0); Eosinophils # (auto) 0 10 ^3/uL (0-0.8); Hemoglobin 8.1 g/dL (12.2-16.2); Monocytes # (auto) 0.5 10 ^3/uL (0-1.3); Neutrophils # (auto) 2.6 10 ^3/uL (1.6-8.6); Nucleated Red Blood Cells % 0.1 %; White Blood Cell 4.4 10^3/uL (4.4-10.8)
[2024-01-25 20:29] LABS: Eosinophils % (auto) 0.5 % (0.0-7.0); Hematocrit 23.5 % (36.0-46.0); Lymphocytes # (auto) 1.3 10 ^3/uL (0.4-5.4); Lymphocytes % (auto) 29.2 % (10.0-50.0); Mean Corpuscular Hemoglobin 35.8 pg (28.0-32.0); Mean Corpuscular Hgb Conc. 34.4 g/dL (32.0-36.0); Mean Corpuscular Volume 104.1 fL (80.0-100.0); Monocytes % (auto) 11.3 % (0.0-12.0); Neutrophils % (auto) 58.5 % (37.0-80.0); Red Blood Cells 2.26 10^6/uL (4.0-5.20)
[2024-01-25 20:40] LABS: Red Cell Distribution Width 26.1 % (11.8-14.3)
[2024-01-25 20:42] LABS: Alanine Aminotransferase 21 U/L (7-40); Albumin 4.3 g/dL (3.2-4.8); Alkaline Phosphatase 67 U/L (46-116); Anion Gap 6 (5-15); Aspartate Aminotransferase 17 U/L (13-40); BUN/Creatinine Ratio 18.2 (10.0-20.0); Bilirubin, Total 0.3 mg/dL (0.2-1.0); Blood Urea Nitrogen 12 mg/dL (9-23); Calcium 9.9 mg/dL (8.5-10.1); Carbon Dioxide 28 mmol/L (20-30); Chloride 105 mmol/L (98-107); Glucose 177 mg/dL (74-106); Potassium 3.7 mmol/L (3.5-5.1); Sodium 139 mmol/L (136-145); Total Protein 7.4 g/dL (5.7-8.2)
[2024-01-25 20:52] LABS: INR 1.04 (0.9-1.15); Partial Thromboplastin Time 27.1 SEC (24.5-34.5); Prothrombin Time 10.9 sec (9.3-11.8)
[2024-01-25 23:45] VITALS: BP 160/62; TEMP 98.7; O2SAT 98
[2024-01-25 23:46] VITALS: PULSE 81; RESP 18
== END 2024-01-25 23:51 | disposition home or self-care (01) ==
LOC: ER 19:43
DX: D53.9 Nutritional anemia, unspecified (principal); R07.89 Other chest pain; I11.0 Hypertensive heart disease with heart failure; I50.9 Heart failure, unspecified; E11.9 Type 2 diabetes mellitus without complications; E78.5 Hyperlipidemia, unspecified; Z86.73 Personal history of transient ischemic attack (TIA), and cerebral infarction without residual deficits; Z98.890 Other specified postprocedural states; Z79.899 Other long term (current) drug therapy
CPT/HCPCS: 36415; 71045; 80053; 84484; 85025; 85610; 85730; 93005

== ENCOUNTER 2024-02-06 13:24 | Inpatient (IN) | payer MEDICAID ==
[~2024-02-06] VITALS: Ht 157.5 cm; Wt 89.6 kg
[2024-02-06] MEDS: NITROGLYCERIN 0.4 MG SL TAB SL ONE (13:45)
[2024-02-06] MEDS: ASPirin 325 MG TAB PO ONE (13:45)
[2024-02-06 14:07] LABS: Basophils # (auto) 0 10 ^3/uL (0-0.2); Eosinophils # (auto) 0 10 ^3/uL (0-0.8); Hemoglobin 7.1 g/dL (12.2-16.2); Lymphocytes # (auto) 1.2 10 ^3/uL (0.4-5.4); Monocytes # (auto) 0.2 10 ^3/uL (0-1.3); Monocytes % (auto) 7.4 % (0.0-12.0); Neutrophils # (auto) 1.2 10 ^3/uL (1.6-8.6); White Blood Cell 2.6 10^3/uL (4.4-10.8)
[2024-02-06 14:08] LABS: Basophils % (auto) 0.4 % (0.0-2.0); Eosinophils % (auto) 0.8 % (0.0-7.0); Hematocrit 20.9 % (36.0-46.0); Lymphocytes % (auto) 45.5 % (10.0-50.0); Mean Corpuscular Hemoglobin 36.9 pg (28.0-32.0); Mean Corpuscular Volume 108.6 fL (80.0-100.0); Neutrophils % (auto) 45.9 % (37.0-80.0); Nucleated Red Blood Cells % 0.2 %; Red Blood Cells 1.93 10^6/uL (4.0-5.20)
[2024-02-06 14:20] LABS: Chloride 108 mmol/L (98-107); Potassium 3.5 mmol/L (3.5-5.1); Sodium 142 mmol/L (136-145)
[2024-02-06 14:21] LABS: Anion Gap 11 (5-15); Calcium 9.8 mg/dL (8.5-10.1); Carbon Dioxide 23 mmol/L (20-30)
[2024-02-06 14:24] LABS: Anisocytosis Moderate; Macrocytosis Slight; Platelet Estimate Adequate
[2024-02-06 14:26] LABS: BUN/Creatinine Ratio 27.4 (10.0-20.0); Blood Urea Nitrogen 17 mg/dL (9-23); Glucose 79 mg/dL (74-106)
[2024-02-06 16:42] LABS: Urine Bacteria None Seen /hpf (None Seen)
[2024-02-06 16:59] LABS: Urine Blood Negative /uL (Negative); Urine Clarity Clear (Clear); Urine Color Light-Yellow (Yellow); Urine Protein, UAD Negative (Negative); Urine Specific Gravity 1.032 (1.001-1.035); Urine Urobilinogen Normal (Negative); Urine WBC 2 /hpf (0 - 5); Urine pH 5.5 (5.0-9.0)
[2024-02-06] MEDS ORDERED: HYDROcodone-ACET 5/325MG TAB PO PRN (17:15)
[2024-02-06] MEDS ORDERED: ONDANSETRON HCL 4 MG/2 ML VIAL IV PRN (17:15)
[2024-02-06] MEDS ORDERED: DEXTROSE (50%) 50ML SYRG IV PRN (17:15)
[2024-02-06] MEDS ORDERED: ACETAMINOPHEN 325 MG TAB PO PRN (17:15)
[2024-02-06] MEDS ORDERED: ALPRAZolam 0.25 MG TAB PO PRN (17:30)
[2024-02-06] MEDS: InsuLIN REG 1unit/0.01ml Soln (100units/ml) SC SCH (22:00)
[2024-02-06] MEDS: ACCU-CHEK COMFORT CURVE STRIP VI SCH (22:00)
[2024-02-06] MEDS: ATORVASTATIN 20 MG TAB PO SCH (23:10)
[2024-02-07] VITALS (11 sets, daily range): BP systolic 108–130; BP diastolic 46–86; PULSE 63–74; RESP 10–20; TEMP 97.5–98.9; O2SAT 92–99
[2024-02-07 00:42] LABS: Hematocrit 19.5 % (36.0-46.0)
[2024-02-07 00:45] LABS: Hemoglobin 6.6 g/dL (12.2-16.2)
[2024-02-07 05:36] LABS: Basophils # (auto) 0 10 ^3/uL (0-0.2); Eosinophils # (auto) 0 10 ^3/uL (0-0.8); Lymphocytes # (auto) 1.5 10 ^3/uL (0.4-5.4); Monocytes # (auto) 0.3 10 ^3/uL (0-1.3); Neutrophils # (auto) 1.1 10 ^3/uL (1.6-8.6); White Blood Cell 2.9 10^3/uL (4.4-10.8)
[2024-02-07 05:41] LABS: Basophils % (auto) 0.3 % (0.0-2.0); Eosinophils % (auto) 0.5 % (0.0-7.0); Hematocrit 18.3 % (36.0-46.0); Lymphocytes % (auto) 49.9 % (10.0-50.0); Mean Corpuscular Hemoglobin 36.7 pg (28.0-32.0); Mean Corpuscular Hgb Conc. 34.3 g/dL (32.0-36.0); Monocytes % (auto) 11.4 % (0.0-12.0); Neutrophils % (auto) 37.9 % (37.0-80.0); Nucleated Red Blood Cells % 0.1 %; Red Blood Cells 1.71 10^6/uL (4.0-5.20)
[2024-02-07 05:58] LABS: Red Cell Distribution Width 26.2 % (11.8-14.3)
[2024-02-07 05:59] LABS: Hemoglobin 6.3 g/dL (12.2-16.2)
[2024-02-07 06:00] LABS: Alanine Aminotransferase 17 U/L (7-40); Albumin 3.7 g/dL (3.2-4.8); Alkaline Phosphatase 51 U/L (46-116); Anion Gap 10 (5-15); Aspartate Aminotransferase 17 U/L (13-40); BUN/Creatinine Ratio 23.7 (10.0-20.0); Bilirubin, Total 0.3 mg/dL (0.2-1.0); Blood Urea Nitrogen 14 mg/dL (9-23); Calcium 9.3 mg/dL (8.5-10.1); Carbon Dioxide 22 mmol/L (20-30); Chloride 108 mmol/L (98-107); Glucose 140 mg/dL (74-106); Potassium 3.3 mmol/L (3.5-5.1); Sodium 140 mmol/L (136-145); Total Protein 6.3 g/dL (5.7-8.2)
[2024-02-07 06:45] LABS: Anisocytosis Slight; Macrocytosis Slight; Platelet Estimate Decreased
[2024-02-07] MEDS: NIFEdipine ER 30 MG TAB PO SCH (10:00)
[2024-02-07] MEDS: GABAPENTIN 400 MG CAP PO SCH (11:02)
[2024-02-07] MEDS: METOPROLOL SUCCINATE XL 50 MG TAB PO SCH (11:03)
[2024-02-07] MEDS: CITALOPRAM HYDROBR 20 MG TAB PO SCH (11:03)
[2024-02-07] MEDS: LISINOPRIL 20 MG TAB PO SCH (11:04)
[2024-02-07 12:03] LABS: Hemoglobin 7.5 g/dL (12.2-16.2)
[2024-02-07 12:04] LABS: Hematocrit 22.3 % (36.0-46.0)
[2024-02-08] VITALS (9 sets, daily range): BP systolic 101–142; BP diastolic 43–69; PULSE 62–69; RESP 17–20; TEMP 97.6–98.6; O2SAT 95–100
[2024-02-08 09:29] LABS: Basophils # (auto) 0 10 ^3/uL (0-0.2); Basophils % (auto) 0.3 % (0.0-2.0); Eosinophils # (auto) 0 10 ^3/uL (0-0.8); Eosinophils % (auto) 0.5 % (0.0-7.0); Hematocrit 26.3 % (36.0-46.0); Hemoglobin 8.8 g/dL (12.2-16.2); Lymphocytes # (auto) 1.1 10 ^3/uL (0.4-5.4); Lymphocytes % (auto) 34.6 % (10.0-50.0); Mean Corpuscular Hemoglobin 33.7 pg (28.0-32.0); Mean Corpuscular Hgb Conc. 33.7 g/dL (32.0-36.0); Mean Corpuscular Volume 100.1 fL (80.0-100.0); Monocytes # (auto) 0.3 10 ^3/uL (0-1.3); Monocytes % (auto) 10.8 % (0.0-12.0); Neutrophils # (auto) 1.7 10 ^3/uL (1.6-8.6); Neutrophils % (auto) 53.8 % (37.0-80.0); Nucleated Red Blood Cells % 0.2 %; Red Blood Cells 2.62 10^6/uL (4.0-5.20); White Blood Cell 3.2 10^3/uL (4.4-10.8)
[2024-02-08 09:40] LABS: Red Cell Distribution Width 25.4 % (11.8-14.3)
[2024-02-08 09:43] LABS: Alanine Aminotransferase 20 U/L (7-40); Albumin 3.9 g/dL (3.2-4.8); Alkaline Phosphatase 56 U/L (46-116); Anion Gap 6 (5-15); Aspartate Aminotransferase 20 U/L (13-40); BUN/Creatinine Ratio 18.5 (10.0-20.0); Bilirubin, Total 0.5 mg/dL (0.2-1.0); Blood Urea Nitrogen 10 mg/dL (9-23); Carbon Dioxide 25 mmol/L (20-30); Chloride 107 mmol/L (98-107); Glucose 166 mg/dL (74-106); Sodium 138 mmol/L (136-145); Total Protein 6.9 g/dL (5.7-8.2)
[2024-02-08 10:47] LABS: Magnesium 1.7 mg/dL (1.6-2.6)
[2024-02-08 10:48] LABS: Folate (Folic Acid) 19.42 ng/mL (>5.38)
== END 2024-02-08 15:45 | disposition home or self-care (01) | DRG 663 ==
LOC: ER 13:24 → OVERFLOW 17:25 → WEST WING 02-07 16:53
PROVIDERS: ADMIT Nurse Practitioner Family; ATTEND Hospitalist
PROC: 30233N1 Transfusion of Nonautologous Red Blood Cells into Peripheral Vein, Percutaneous Approach (ICD-10-PCS; principal; 2024-02-07)
DX: D50.9 Iron deficiency anemia, unspecified (principal); I11.0 Hypertensive heart disease with heart failure; I50.42 Chronic combined systolic (congestive) and diastolic (congestive) heart failure; E11.9 Type 2 diabetes mellitus without complications; E66.01 Morbid (severe) obesity due to excess calories; E78.5 Hyperlipidemia, unspecified; F32.A Depression, unspecified; F41.9 Anxiety disorder, unspecified; Z68.36 Body mass index [BMI] 36.0-36.9, adult; Z86.73 Personal history of transient ischemic attack (TIA), and cerebral infarction without residual deficits; Z79.4 Long term (current) use of insulin; Z79.899 Other long term (current) drug therapy; Z90.49 Acquired absence of other specified parts of digestive tract
CPT/HCPCS: 36415; 80048; 80053; 81001; 82607; 82746; 82962; 83036; 83735; 84443; 84484; 85014; 85018; 85025; 86850; 86870; 86900; 86901; 86902; 86922; 93005; 97163; G0378; J1815

== ENCOUNTER 2024-03-07 00:15 | Emergency (ER) | payer MEDICAID ==
[~2024-03-07] VITALS: Ht 157.5 cm; Wt 92.0 kg
[2024-03-07 00:15] VITALS: BP 110/46; PULSE 76; RESP 16; O2SAT 95
[2024-03-07 00:57] LABS: Urine Bacteria None Seen /hpf (None Seen)
[2024-03-07 01:11] LABS: Urine Blood Negative /uL (Negative); Urine Clarity Clear (Clear); Urine Color Colorless (Yellow); Urine Protein, UAD Negative (Negative); Urine Specific Gravity 1.014 (1.001-1.035); Urine Urobilinogen Normal (Negative); Urine WBC 2 /hpf (0 - 5); Urine pH 5.5 (5.0-9.0)
== END 2024-03-07 02:30 | disposition left against medical advice (07) ==
LOC: ER 00:15
DX: R53.1 Weakness (principal); Z53.21 Procedure and treatment not carried out due to patient leaving prior to being seen by health care provider
CPT/HCPCS: 81001; 93005

== ENCOUNTER 2024-03-15 08:57 | Inpatient (IN) | payer MEDICAID ==
[~2024-03-15] VITALS: Ht 157.5 cm; Wt 94.1 kg
[2024-03-15 09:46] LABS: Basophils # (auto) 0 10 ^3/uL (0-0.2); Eosinophils # (auto) 0 10 ^3/uL (0-0.8); Eosinophils % (auto) 0.5 % (0.0-7.0); Hemoglobin 9.5 g/dL (12.2-16.2); Monocytes # (auto) 0.5 10 ^3/uL (0-1.3)
[2024-03-15 09:48] LABS: Basophils % (auto) 0.4 % (0.0-2.0); Hematocrit 29.1 % (36.0-46.0); Lymphocytes # (auto) 1.1 10 ^3/uL (0.4-5.4); Lymphocytes % (auto) 25.3 % (10.0-50.0); Mean Corpuscular Hemoglobin 36.5 pg (28.0-32.0); Mean Corpuscular Hgb Conc. 32.8 g/dL (32.0-36.0); Mean Corpuscular Volume 111.3 fL (80.0-100.0); Monocytes % (auto) 11.5 % (0.0-12.0); Neutrophils # (auto) 2.7 10 ^3/uL (1.6-8.6); Neutrophils % (auto) 62.3 % (37.0-80.0); Nucleated Red Blood Cells % 0.1 %; Red Blood Cells 2.61 10^6/uL (4.0-5.20); White Blood Cell 4.3 10^3/uL (4.4-10.8)
[2024-03-15 09:51] LABS: Urine Bacteria None Seen /hpf (None Seen)
[2024-03-15 09:59] LABS: Red Cell Distribution Width 29.1 % (11.8-14.3)
[2024-03-15 10:09] LABS: Alanine Aminotransferase 14 U/L (7-40); Albumin 3.8 g/dL (3.2-4.8); Alkaline Phosphatase 46 U/L (46-116); Anion Gap 5 (5-15); Aspartate Aminotransferase 11 U/L (13-40); BUN/Creatinine Ratio 10.1 (10.0-20.0); Blood Urea Nitrogen 8 mg/dL (9-23); Calcium 9.2 mg/dL (8.5-10.1); Carbon Dioxide 24 mmol/L (20-30); Chloride 110 mmol/L (98-107); Glucose 221 mg/dL (74-106); Potassium 4.3 mmol/L (3.5-5.1); Sodium 139 mmol/L (136-145)
[2024-03-15 10:10] LABS: Bilirubin, Total 0.5 mg/dL (0.2-1.0); Total Protein 6.6 g/dL (5.7-8.2)
[2024-03-15 10:24] LABS: Urine Blood Negative /uL (Negative); Urine Clarity Clear (Clear); Urine Color Light-Yellow (Yellow); Urine Protein, UAD Negative (Negative); Urine Specific Gravity 1.027 (1.001-1.035); Urine Urobilinogen Normal (Negative); Urine WBC 5 /hpf (0 - 5)
[2024-03-15 10:28] LABS: Anisocytosis Marked; Macrocytosis Marked; Platelet Estimate Decreased
[2024-03-15] MEDS ORDERED: ACETAMINOPHEN 325 MG TAB PO PRN (19:15)
[2024-03-15] MEDS ORDERED: DOCUSATE SOD 100 MG CAP PO PRN (19:15)
[2024-03-15] MEDS ORDERED: MORPHINE SULFATE INJ 2 MG/ml SYRG IV PRN (19:15)
[2024-03-15] MEDS ORDERED: HYDROcodone-ACET 5/325MG TAB PO PRN (19:15)
[2024-03-15] MEDS ORDERED: ONDANSETRON HCL 4 MG/2 ML VIAL IV PRN (19:15)
[2024-03-15] MEDS ORDERED: DEXTROSE (50%) 50ML SYRG IV PRN (19:15)
[2024-03-15] MEDS ORDERED: NITROGLYCERIN 0.4 MG SL TAB SL PRN (19:15)
[2024-03-15] MEDS ORDERED: LORazepam 2MG/ML-1ML VIAL IV PRN (22:45)
[2024-03-15 23:36] VITALS: BP 136/64; PULSE 83; RESP 16; TEMP 98.4; O2SAT 95
[2024-03-16] VITALS (7 sets, daily range): BP systolic 95–103; BP diastolic 42–49; PULSE 50–87; RESP 16–18; TEMP 98.3–98.5; O2SAT 95–100
[2024-03-16] MEDS: ACCU-CHEK COMFORT CURVE STRIP VI SCH (00:26)
[2024-03-16] MEDS: InsuLIN REG 1unit/0.01ml Soln (100units/ml) SC SCH ×2 (00:27→07:01)
[2024-03-16] MEDS: ATORVASTATIN 20 MG TAB PO SCH (00:33)
[2024-03-16] MEDS: traZODone HCL 50 MG TAB PO SCH (00:38)
[2024-03-16] MEDS: SODIUM CHLOR 0.9% PF (SALINE LOCK) 10ML VIAL/SYR IV SCH (01:02)
[2024-03-16 06:33] LABS: Basophils # (auto) 0 10 ^3/uL (0-0.2); Basophils % (auto) 0.2 % (0.0-2.0); Eosinophils # (auto) 0 10 ^3/uL (0-0.8); Lymphocytes # (auto) 1.3 10 ^3/uL (0.4-5.4); Monocytes # (auto) 0.6 10 ^3/uL (0-1.3); Neutrophils # (auto) 2.6 10 ^3/uL (1.6-8.6); White Blood Cell 4.6 10^3/uL (4.4-10.8)
[2024-03-16 06:37] LABS: Eosinophils % (auto) 0.5 % (0.0-7.0); Hematocrit 23.6 % (36.0-46.0); Lymphocytes % (auto) 28.9 % (10.0-50.0); Mean Corpuscular Hemoglobin 37.3 pg (28.0-32.0); Mean Corpuscular Hgb Conc. 33.9 g/dL (32.0-36.0); Mean Corpuscular Volume 109.9 fL (80.0-100.0); Monocytes % (auto) 13.3 % (0.0-12.0); Neutrophils % (auto) 57.1 % (37.0-80.0); Nucleated Red Blood Cells % 0.2 %; Red Blood Cells 2.15 10^6/uL (4.0-5.20)
[2024-03-16 06:41] LABS: Alanine Aminotransferase 12 U/L (7-40); Albumin 3.6 g/dL (3.2-4.8); Alkaline Phosphatase 41 U/L (46-116); Anion Gap 6 (5-15); Aspartate Aminotransferase < 8 U/L (13-40); BUN/Creatinine Ratio 17.6 (10.0-20.0); Blood Urea Nitrogen 15 mg/dL (9-23); Calcium 9.2 mg/dL (8.7-10.4); Carbon Dioxide 26 mmol/L (20-30); Chloride 108 mmol/L (98-107); Glucose 155 mg/dL (74-106); Sodium 140 mmol/L (136-145)
[2024-03-16 06:42] LABS: Bilirubin, Total 0.4 mg/dL (0.2-1.0)
[2024-03-16 06:50] LABS: Red Cell Distribution Width 28.8 % (11.8-14.3)
[2024-03-16] MEDS: cefTRIAXone 1GM/50ML D5W 50 ML IV SCH (09:19)
[2024-03-16] MEDS: CITALOPRAM HYDROBR 20 MG TAB PO SCH (10:48)
[2024-03-16] MEDS: LISINOPRIL 20 MG TAB PO SCH (10:49)
[2024-03-16] MEDS: EMPAGLIFLOZIN 10 MG TAB PO SCH (10:49)
[2024-03-16] MEDS: ASPirin 81 mg TAB PO SCH (10:50)
[2024-03-16] MEDS: NIFEdipine ER 30 MG TAB PO SCH (10:50)
[2024-03-16 17:51] LABS: Erythrocyte Sedimentation Rate 78 mm/hr (0-20)
[2024-03-16] MEDS: LIDOCAINE 5% TOPICAL PATCH TOP ONE (17:53)
[2024-03-16] MEDS ORDERED: ATORVASTATIN 20 MG TAB PO SCH (22:00)
[2024-03-17 01:00] VITALS: BP 105/47; PULSE 75; RESP 18; TEMP 98.3; O2SAT 100
[2024-03-17 05:00] VITALS: BP 100/51; PULSE 78; RESP 18; TEMP 98.2; O2SAT 100
[2024-03-17 07:45] VITALS: PULSE 67; RESP 18; O2SAT 98
[2024-03-17 09:00] VITALS: BP 100/53; PULSE 69; RESP 18; TEMP 98.1; O2SAT 96
[2024-03-17 13:00] VITALS: BP 134/51; PULSE 74; RESP 20; TEMP 98.2; O2SAT 94
[2024-03-17 13:48] VITALS: BP 100/53; TEMP 36.8
== END 2024-03-17 13:20 | disposition home or self-care (01) | DRG 663 ==
LOC: ER 08:57 → TELE 19:15 → TELE-WESTW 03-16 14:33
PROVIDERS: ADMIT Nurse Practitioner Family; ATTEND Nurse Practitioner Acute Care
DX: D64.9 Anemia, unspecified (principal); I11.0 Hypertensive heart disease with heart failure; I50.9 Heart failure, unspecified; E11.65 Type 2 diabetes mellitus with hyperglycemia; E66.9 Obesity, unspecified; E78.5 Hyperlipidemia, unspecified; F32.A Depression, unspecified; G47.10 Hypersomnia, unspecified; G47.33 Obstructive sleep apnea (adult) (pediatric); F17.200 Nicotine dependence, unspecified, uncomplicated; R53.82 Chronic fatigue, unspecified; J44.9 Chronic obstructive pulmonary disease, unspecified; Z86.73 Personal history of transient ischemic attack (TIA), and cerebral infarction without residual deficits; Z79.82 Long term (current) use of aspirin; Z79.899 Other long term (current) drug therapy; Z82.49 Family history of ischemic heart disease and other diseases of the circulatory system; Z83.3 Family history of diabetes mellitus; Z80.49 Family history of malignant neoplasm of other genital organs; Z80.0 Family history of malignant neoplasm of digestive organs; Z68.37 Body mass index [BMI] 37.0-37.9, adult
CPT/HCPCS: 36415; 70450; 70551; 71046; 80053; 81001; 82962; 83036; 83880; 84484; 85025; 85652; 86141; 87081; 93005; G0378; J1815

== ENCOUNTER 2024-03-31 16:25 | Emergency (ER) | payer MEDICAID ==
[~2024-03-31] VITALS: Ht 157.5 cm; Wt 90.0 kg
[2024-03-31 17:01] VITALS: BP 129/63; PULSE 88; RESP 16; O2SAT 96
[2024-03-31 17:25] LABS: Basophils # (auto) 0 10 ^3/uL (0-0.2); Eosinophils # (auto) 0 10 ^3/uL (0-0.8); Eosinophils % (auto) 0.2 % (0.0-7.0); Hematocrit 25.8 % (36.0-46.0); Hemoglobin 8.8 g/dL (12.2-16.2); Lymphocytes # (auto) 1.1 10 ^3/uL (0.4-5.4); Monocytes # (auto) 0.3 10 ^3/uL (0-1.3); Nucleated Red Blood Cells % 0.3 %; Red Blood Cells 2.31 10^6/uL (4.0-5.20); White Blood Cell 2.9 10^3/uL (4.4-10.8)
[2024-03-31 17:27] LABS: Basophils % (auto) 0.8 % (0.0-2.0); Lymphocytes % (auto) 39.3 % (10.0-50.0); Mean Corpuscular Hgb Conc. 34.1 g/dL (32.0-36.0); Mean Corpuscular Volume 111.7 fL (80.0-100.0); Monocytes % (auto) 11.4 % (0.0-12.0); Neutrophils # (auto) 1.4 10 ^3/uL (1.6-8.6); Neutrophils % (auto) 48.3 % (37.0-80.0)
[2024-03-31 17:34] LABS: Red Cell Distribution Width 27.7 % (11.8-14.3)
[2024-03-31 17:46] LABS: Alanine Aminotransferase 16 U/L (7-40); Albumin 4.2 g/dL (3.2-4.8); Alkaline Phosphatase 50 U/L (46-116); Anion Gap 5 (5-15); Aspartate Aminotransferase 11 U/L (13-40); BUN/Creatinine Ratio 12.6 (10.0-20.0); Bilirubin, Total 0.3 mg/dL (0.2-1.0); Blood Urea Nitrogen 13 mg/dL (9-23); Calcium 9.8 mg/dL (8.5-10.1); Carbon Dioxide 26 mmol/L (20-30); Chloride 112 mmol/L (98-107); Glucose 120 mg/dL (74-106); Potassium 3.6 mmol/L (3.5-5.1); Sodium 143 mmol/L (136-145)
[2024-03-31 17:54] LABS: Anisocytosis Moderate; Macrocytosis Marked; Platelet Estimate Adequate; Tear Drop Cells FEW
[2024-03-31 17:56] LABS: Lipase 57 U/L (12-53)
== END 2024-03-31 19:48 | disposition home or self-care (01) ==
LOC: ER 16:25
DX: D64.9 Anemia, unspecified (principal); R53.1 Weakness; I11.0 Hypertensive heart disease with heart failure; I50.9 Heart failure, unspecified; E11.9 Type 2 diabetes mellitus without complications; E78.5 Hyperlipidemia, unspecified; F32.9 Major depressive disorder, single episode, unspecified; Z86.2 Personal history of diseases of the blood and blood-forming organs and certain disorders involving the immune mechanism; Z86.73 Personal history of transient ischemic attack (TIA), and cerebral infarction without residual deficits; Z98.890 Other specified postprocedural states; Z79.899 Other long term (current) drug therapy
CPT/HCPCS: 36415; 80053; 83690; 85025

== ENCOUNTER 2024-04-11 22:36 | Emergency (ER) | payer MEDICAID ==
[~2024-04-11] VITALS: Ht 157.5 cm; Wt 89.5 kg
[2024-04-11 23:20] VITALS: BP 125/65; PULSE 81; RESP 20; O2SAT 98
[2024-04-12 00:02] LABS: Hematocrit 21.5 % (36.0-46.0); Mean Corpuscular Volume 111.5 fL (80.0-100.0); Red Blood Cells 1.93 10^6/uL (4.0-5.20); White Blood Cell 3.4 10^3/uL (4.4-10.8)
[2024-04-12 00:05] LABS: Hemoglobin 7.3 g/dL (12.2-16.2); Mean Corpuscular Hemoglobin 38.1 pg (28.0-32.0); Mean Corpuscular Hgb Conc. 34.2 g/dL (32.0-36.0)
[2024-04-12 00:06] LABS: Red Cell Distribution Width 26.3 % (11.8-14.3)
[2024-04-12 00:08] LABS: Basophils % (manual) 0 (0.0-2.0); Eosinophils % (manual) 0 (0-7); Metamyelocytes % 0; Myelocytes % 0
[2024-04-12 00:09] LABS: Blast Cells 0; Promyelocytes % 0; Reactive Lymphocytes 0
[2024-04-12 00:10] LABS: Albumin 3.8 g/dL (3.2-4.8); Alkaline Phosphatase 50 U/L (46-116); Anion Gap 7 (5-15); Aspartate Aminotransferase 15 U/L (13-40); BUN/Creatinine Ratio 15.7 (10.0-20.0); Bilirubin, Total 0.3 mg/dL (0.2-1.0); Blood Urea Nitrogen 14 mg/dL (9-23); Calcium 9.3 mg/dL (8.7-10.4); Carbon Dioxide 25 mmol/L (20-30); Chloride 110 mmol/L (98-107); Glucose 138 mg/dL (74-106); Potassium 3.3 mmol/L (3.5-5.1); Sodium 142 mmol/L (136-145); Total Protein 6.7 g/dL (5.7-8.2)
[2024-04-12 00:23] LABS: Alanine Aminotransferase 27 U/L (7-40)
[2024-04-12 00:37] LABS: Anisocytosis Moderate; Band Neutrophils % (manual) 1; Lymphocytes % (manual) 53 (10.0-50.0); Macrocytosis Marked; Monocytes % (manual) 8 (0-12); Platelet Estimate Decreased
[2024-04-12 00:38] LABS: Polychromasia Slight
== END 2024-04-12 03:10 | disposition home or self-care (01) ==
LOC: ER 22:36
DX: D64.9 Anemia, unspecified (principal); R07.89 Other chest pain; I11.0 Hypertensive heart disease with heart failure; I50.9 Heart failure, unspecified; E11.9 Type 2 diabetes mellitus without complications; F32.9 Major depressive disorder, single episode, unspecified; E78.5 Hyperlipidemia, unspecified; Z86.73 Personal history of transient ischemic attack (TIA), and cerebral infarction without residual deficits; Z98.890 Other specified postprocedural states; Z79.899 Other long term (current) drug therapy
CPT/HCPCS: 36415; 71045; 80053; 84484; 85007; 85027; 86850; 86870; 86900; 86901

== ENCOUNTER 2024-04-29 18:58 | Emergency (ER) | payer MEDICAID ==
[~2024-04-29] VITALS: Ht 157.5 cm; Wt 89.5 kg
[2024-04-29 19:24] VITALS: BP 127/43; PULSE 86; RESP 20; O2SAT 98
[2024-04-29 20:21] LABS: Basophils # (auto) 0 10 ^3/uL (0-0.2); Eosinophils # (auto) 0 10 ^3/uL (0-0.8); Eosinophils % (auto) 0.3 % (0.0-7.0); Monocytes # (auto) 0.4 10 ^3/uL (0-1.3); Neutrophils # (auto) 2.1 10 ^3/uL (1.6-8.6); White Blood Cell 3.9 10^3/uL (4.4-10.8)
[2024-04-29 20:24] LABS: Basophils % (auto) 0.2 % (0.0-2.0); Hematocrit 20.3 % (36.0-46.0); Hemoglobin 7.2 g/dL (12.2-16.2); Lymphocytes # (auto) 1.4 10 ^3/uL (0.4-5.4); Lymphocytes % (auto) 35.6 % (10.0-50.0); Mean Corpuscular Hgb Conc. 35.3 g/dL (32.0-36.0); Mean Corpuscular Volume 107.7 fL (80.0-100.0); Monocytes % (auto) 10.9 % (0.0-12.0); Nucleated Red Blood Cells % 0.2 %; Red Blood Cells 1.88 10^6/uL (4.0-5.20)
[2024-04-29 20:31] LABS: Red Cell Distribution Width 25.6 % (11.8-14.3)
[2024-04-29 20:43] LABS: INR 1.03 (0.9-1.15); Partial Thromboplastin Time 26.7 SEC (24.5-34.5); Prothrombin Time 10.9 sec (9.3-11.8)
[2024-04-29 20:47] LABS: Alanine Aminotransferase 17 U/L (7-40); Albumin 4.2 g/dL (3.2-4.8); Alkaline Phosphatase 59 U/L (46-116); Anion Gap 9 (5-15); Aspartate Aminotransferase 10 U/L (13-40); BUN/Creatinine Ratio 19.7 (10.0-20.0); Blood Urea Nitrogen 14 mg/dL (9-23); Calcium 9.6 mg/dL (8.7-10.4); Carbon Dioxide 25 mmol/L (20-30); Chloride 106 mmol/L (98-107); Glucose 145 mg/dL (74-106); Potassium 3.6 mmol/L (3.5-5.1); Sodium 140 mmol/L (136-145)
[2024-04-29 20:48] LABS: Bilirubin, Total 0.3 mg/dL (0.2-1.0); Total Protein 7.1 g/dL (5.7-8.2)
== END 2024-04-30 00:37 | disposition left against medical advice (07) ==
LOC: ER 18:58
DX: D64.9 Anemia, unspecified (principal); L02.416 Cutaneous abscess of left lower limb; I11.0 Hypertensive heart disease with heart failure; I50.9 Heart failure, unspecified; E11.9 Type 2 diabetes mellitus without complications; E78.5 Hyperlipidemia, unspecified; Z98.51 Tubal ligation status; Z86.73 Personal history of transient ischemic attack (TIA), and cerebral infarction without residual deficits
CPT/HCPCS: 36415; 80053; 83880; 84484; 85025; 85610; 85730

== ENCOUNTER 2024-06-13 17:41 | Emergency (ER) | payer MEDICAID ==
[~2024-06-13] VITALS: Ht 162.6 cm; Wt 81.8 kg
[2024-06-13 20:02] LABS: INR 1.04 (0.9-1.15); Partial Thromboplastin Time 26.1 SEC (24.5-34.5)
[2024-06-13 20:07] LABS: Alanine Aminotransferase 26 U/L (7-40); Albumin 3.9 g/dL (3.2-4.8); Alkaline Phosphatase 56 U/L (46-116); Anion Gap 6 (5-15); Aspartate Aminotransferase 17 U/L (13-40); BUN/Creatinine Ratio 8.2 (10.0-20.0); Bilirubin, Total 0.3 mg/dL (0.2-1.0); Blood Urea Nitrogen 8 mg/dL (9-23); Calcium 9.2 mg/dL (8.7-10.4); Carbon Dioxide 26 mmol/L (20-30); Chloride 111 mmol/L (98-107); Glucose 98 mg/dL (74-106); Potassium 3.5 mmol/L (3.5-5.1); Sodium 143 mmol/L (136-145); Total Protein 6.8 g/dL (5.7-8.2)
[2024-06-13 20:12] LABS: Basophils # (auto) 0 10 ^3/uL (0-0.2); Eosinophils # (auto) 0 10 ^3/uL (0-0.8); Hemoglobin 7.4 g/dL (12.2-16.2); Lymphocytes # (auto) 1.3 10 ^3/uL (0.4-5.4); Mean Corpuscular Volume 107.7 fL (80.0-100.0); Monocytes # (auto) 0.5 10 ^3/uL (0-1.3); Neutrophils # (auto) 1.9 10 ^3/uL (1.6-8.6); Platelet Count (auto) 114 10^3/uL (140-450); White Blood Cell 3.7 10^3/uL (4.4-10.8)
[2024-06-13 20:14] LABS: Basophils % (auto) 0.3 % (0.0-2.0); Eosinophils % (auto) 0.3 % (0.0-7.0); Hematocrit 21.3 % (36.0-46.0); Mean Corpuscular Hemoglobin 37.4 pg (28.0-32.0); Mean Corpuscular Hgb Conc. 34.7 g/dL (32.0-36.0); Monocytes % (auto) 12.8 % (0.0-12.0); Neutrophils % (auto) 50.6 % (37.0-80.0); Nucleated Red Blood Cells % 0.2 %; Red Blood Cells 1.97 10^6/uL (4.0-5.20)
[2024-06-13 20:22] LABS: Red Cell Distribution Width 26.5 % (11.8-14.3)
[2024-06-13 21:54] LABS: Anisocytosis Moderate; Macrocytosis Moderate; Platelet Estimate Decreased
[2024-06-13] MEDS ORDERED: GABA-1250 PO (22:24)
[2024-06-13 23:10] VITALS: PULSE 82; RESP 18; O2SAT 94
[2024-06-13 23:22] VITALS: BP 121/47; PULSE 82; RESP 18; TEMP 98.3; O2SAT 93
== END 2024-06-13 23:21 | disposition home or self-care (01) ==
LOC: ER 17:41 → EDBD 17:41 → ER 23:21
DX: D46.A Refractory cytopenia with multilineage dysplasia (principal); R53.1 Weakness; G89.4 Chronic pain syndrome; I11.0 Hypertensive heart disease with heart failure; I50.89 Other heart failure; F32.9 Major depressive disorder, single episode, unspecified; E11.9 Type 2 diabetes mellitus without complications; E78.5 Hyperlipidemia, unspecified; Z90.49 Acquired absence of other specified parts of digestive tract; Z98.890 Other specified postprocedural states; Z79.899 Other long term (current) drug therapy; Z79.4 Long term (current) use of insulin; Z86.73 Personal history of transient ischemic attack (TIA), and cerebral infarction without residual deficits
CPT/HCPCS: 36415; 71045; 80053; 83735; 83880; 84484; 85025; 85610; 85730; 86850; 86900; 86901

== ENCOUNTER 2024-06-19 13:22 | Emergency (ER) | payer MEDICAID ==
[~2024-06-19 13:22] MED LIST changes: +GABA-1250 PO
== END 2024-06-19 13:56 | disposition left against medical advice (07) ==
LOC: ER 13:22
DX: M79.641 Pain in right hand (principal); Z53.21 Procedure and treatment not carried out due to patient leaving prior to being seen by health care provider

== ENCOUNTER 2024-06-20 14:36 | Emergency (ER) | payer MEDICAID ==
[~2024-06-20] VITALS: Ht 157.5 cm; Wt 88.5 kg
[2024-06-20 17:10] LABS: Basophils # (auto) 0 10 ^3/uL (0-0.2); Basophils % (auto) 0.2 % (0.0-2.0); Eosinophils # (auto) 0 10 ^3/uL (0-0.8); Eosinophils % (auto) 0.2 % (0.0-7.0); Hematocrit 23.8 % (36.0-46.0); Hemoglobin 8.3 g/dL (12.2-16.2); Lymphocytes # (auto) 1.1 10 ^3/uL (0.4-5.4); Lymphocytes % (auto) 27.6 % (10.0-50.0); Mean Corpuscular Hgb Conc. 34.8 g/dL (32.0-36.0); Mean Corpuscular Volume 103.6 fL (80.0-100.0); Monocytes # (auto) 0.5 10 ^3/uL (0-1.3); Monocytes % (auto) 13.7 % (0.0-12.0); Neutrophils # (auto) 2.2 10 ^3/uL (1.6-8.6); Neutrophils % (auto) 58.3 % (37.0-80.0); Nucleated Red Blood Cells % 0.2 %; Platelet Count (auto) 124 10^3/uL (140-450); Red Blood Cells 2.29 10^6/uL (4.0-5.20); Red Cell Distribution Width 24.6 % (11.8-14.3); White Blood Cell 3.8 10^3/uL (4.4-10.8)
[2024-06-20 17:18] LABS: Alanine Aminotransferase 21 U/L (7-40); Albumin 4.2 g/dL (3.2-4.8); Alkaline Phosphatase 60 U/L (46-116); Anion Gap 6 (5-15); Aspartate Aminotransferase 15 U/L (13-40); BUN/Creatinine Ratio 20.3 (10.0-20.0); Blood Urea Nitrogen 14 mg/dL (9-23); Calcium 9.7 mg/dL (8.7-10.4); Carbon Dioxide 27 mmol/L (20-30); Chloride 109 mmol/L (98-107); Glucose 123 mg/dL (74-106); Potassium 3.8 mmol/L (3.5-5.1); Sodium 142 mmol/L (136-145)
[2024-06-20 17:19] LABS: Bilirubin, Total 0.3 mg/dL (0.2-1.0); Total Protein 7.4 g/dL (5.7-8.2)
[2024-06-20 17:36] LABS: Anisocytosis Moderate; Macrocytosis Slight; Platelet Estimate Decreased
[2024-06-20 21:22] VITALS: PULSE 92; RESP 17; TEMP 98.5; O2SAT 94
[2024-06-20] MEDS: MORPHINE SULFATE 4 MG/ML SYR/VIAL IM ONE (21:40)
[2024-06-20] MEDS: ONDANSETRON ODT 4 MG TAB PO ONE (21:40)
[2024-06-20 22:10] VITALS: BP 154/85; PULSE 92; RESP 18
== END 2024-06-20 22:10 | disposition home or self-care (01) ==
LOC: ER 14:36
DX: T80.1XXA Vascular complications following infusion, transfusion and therapeutic injection, initial encounter (principal); I80.8 Phlebitis and thrombophlebitis of other sites; D72.819 Decreased white blood cell count, unspecified; D64.9 Anemia, unspecified; R53.1 Weakness; I11.0 Hypertensive heart disease with heart failure; I50.9 Heart failure, unspecified; E11.9 Type 2 diabetes mellitus without complications; E78.5 Hyperlipidemia, unspecified; F32.9 Major depressive disorder, single episode, unspecified; Z86.73 Personal history of transient ischemic attack (TIA), and cerebral infarction without residual deficits; Z98.890 Other specified postprocedural states; Z79.899 Other long term (current) drug therapy
CPT/HCPCS: 36415; 80053; 85025; 93971; 96372; 99285; J2270; Q0162

== ENCOUNTER 2025-04-20 15:05 | Inpatient (IN) | payer MEDICARE, MEDICAID ==
[~2025-04-20] VITALS: Ht 157.5 cm; Wt 96.2 kg
--- NOTE | 2025-04-20 15:56 | ED.PDOC ---
History of Present Illness HPI Comments HPI: Initial Vitals BP: HR: RR: O2: Temp: Past Medical History: ANEMIA, CHF, CVA, DEPRESSION, DM, HLD, HTN, HLD Past Surgical History: APPENDECTOMY, BTL Social History: Denies ETOH, smoking, and drug use. Medications: DENIES ANY Allergies: PRESTON Smith,: HPI: Poor Historian. 65-year-old female presents to emergency depart for generalized weakness x2 days. Patient stated that she started her oral chemotherapy yesterday which typically causes her to feel this way. Patient denies any other acute symptoms. Initial vital signs in triage were stable. Patient drove herself here to the ER. Patient had blood transfusions in the past for similar presentations Past Medical History: CVA, MDS, right-sided deficit, hypertension, Past Surgical History: Appendectomy REVIEW OF SYSTEMS: CONSTITUTIONAL: Denies acute: fever, diaphoresis, chills, HEAD: Denies acute: headache, photophobia Eyes: Denies acute: Double vision, vision loss, eye pain, eye discharge. EARS: Denies acute: tinnitus, hearing loss, ear discharge, ear pain, THROAT: Denies acute: sore throat, swelling, difficulty swallowing , pain with swallowing, change in voice. NECK: Denies acute: neck pain, neck swelling, stiff neck. HEART: Denies acute : chest pain, palpitations, LUNGS: Denies acute: SOB, wheezing, cough, hemoptysis ABDOMEN: Denies acute: abdominal pain, Nausea, Vomiting, diarrhea, melena , hematemesis, hematochezia SKIN: Denies acute: rash, redness, lesions, itchiness. EXTREMITIES: Denies acute: calf pain, numbness, tingling, weakness, denies pain in extremity. Denies acute: Low back pain. Neuro: Denies acute: focal neurological deficit, motor or sensory focal neurological deficit, tremors, seizure like activity, confusion, , change in mental status, loss of bowel or bladder function, cauda equina like symptoms. : Denies acute: dysuria, hematuria, flank pain, increase in urinary frequency. PSYCH: Denies acute: hallucination, suicidal ideation, homicidal ideation. FEMALE: Denies acute: abnormal vaginal bleeding, foul odor, unusual discharge. PHYSICAL EXAM: General: -----no---acute distress, awake and alert. Head: normocephalic, atraumatic. Neck: supple, trachea is midline, no swelling. Throat: Normal phonation. Eyes:, no erythema, no purulent discharge, no proptosis, no icterus. Heart: regular rate, regular rhythm, no significant murmur appreciated. Lungs: no apparent respiratory distress, Able to speak in full sentences. No wheezing, no rhonchi, no crackles. No stridors Clear to auscultation bilaterally. Abdomen: non tender to palpation, non distended, soft, no guarding, no rebound, + bowel sounds. Neuro: Awake, Alert, oriented to name, self, situation, follows commands GCS=15. Speech is normal. Skin: no petechia, no purpura, no cyanosis, non-pale, not jaundice. Lower extremities: --no - Pitting edema no deformity, no focal swelling, no calf TTP. Makes eye contact. moves all four extremities. Face: no apparent facial droop. Ambulating in the ED independently. ED COURSE: DISCLAIMER: This medical document was created using an electronic medical record system with voice recognition software and computerized dictation system. Although this document has been carefully reviewed, there might still be some phonetic and typographical errors. Occasional wrong-word or "sound-alike" substitutions may have occurred due to the inherent limitations of voice recognition software. These areas are purely typographical due to imperfections of the software programs and do not reflect any compromise in the patient's medical care. Please read the chart carefully and recognize, using context, where these substitutions have occurred. Chief Complaint: General Weakness Time Seen by MD: 15:40 Primary Care Provider: unknown Reviewed Notes: Nurses Notes, Medications, Allergies Allergies: Coded Allergies: NO KNOWN ALLERGIES (Unverified , 06/15/23) Home Meds Active Scripts Gabapentin (Gabapentin) 300 Mg Cap, 1 CAP PO TID, #90 CAP 5 Refills Prov:JAYDA SAMANIEGO MD 06/13/24 Alprazolam (Xanax) 0.25 Mg Tb, 1 TAB PO DAILY PRN for 30 Days, #30 TAB Prov:HORACIO HENAO MD 01/07/24 Reported Medications Trazodone Hcl (Trazodone Hcl) 100 Mg Tab, 100 MG PO, MG 01/04/24 Insulin Lispro (Human) (Humalog) 100 Unit/Ml Inj, UNIT SC, INJ 01/04/24 Lisinopril (Lisinopril) 40 Mg Tab, 40 MG PO DAILY for 30 Days, MG 01/04/24 Metoprolol Succinate (Metoprolol Succinate Er) 25 Mg Tab, 1 TAB PO DAILY 08/01/23 Nifedipine (Nifedipine Er) 30 Mg Tab, 1 TAB PO DAILY 08/01/23 Atorvastatin Calcium (ATORVASTATIN CALCIUM) 10 Mg Tab, 1 TAB PO DAILY 08/01/23 Metformin Hydrochloride (Metformin Hcl) 500 Mg Tab, 1 TAB PO TID 08/01/23 Empagliflozin (Jardiance) 10 Mg Tab, 1 TAB PO DAILY 08/01/23 Citalopram Hydrobromide (Celexa) 10 Mg Tab, 1 TAB PO DAILY, #30 TAB 2 Refills 06/29/23 Gabapentin (Gabapentin) 600 Mg Tab, 1200 MG PO DAILY for 30 Days, MG 06/29/23 Information Source: Patient Mode of Arrival: Ambulatory Severity: Moderate Duration: Since onset Prehospital treatment: None Was a procedure done? Was a procedure done?: No Differential Dx Considerations may include: Includes but not limited to thyroid disease, encephalopathy, electrolyte abnormality, sepsis, infection, intracranial pathology, drug adverse effects, arrhythmia, kidney insufficiency, ACS, CVA, malignancy, anemia X-Ray, Labs, Meds, VS Vital Signs Date Time Temp Pulse Resp B/P (MAP) Pulse Ox O2 Delivery O2 Flow Rate FiO2 04/20/25 18:00 Room Air* 0 21 04/20/25 17:28 80 18 98 Room Air 04/20/25 17:28 98.4 80 18 97/44 (61) 98 98.4 04/20/25 15:20 98.7 86 13 112/54 (73) 95 98.7 Lab Test 04/20/25 19:36 04/20/25 17:49 04/20/25 17:02 04/20/25 16:07 Range/Units Hemoglobin 7.0 *L 7.2 L 12.2-16.2 g/dL Hematocrit 20.3 L 20.9 L 36.0-46.0 % Troponin I High Sensitivity < 3 L < 3 L </=34 ng/L White Blood Count 3.0 L 4.4-10.8 10^3/uL Red Blood Count 2.22 L 4.0-5.20 10^6/uL Mean Corpuscular Volume 94.2 80.0-100.0 fL Mean Corpuscular Hemoglobin 32.4 H 28.0-32.0 pg Mean Corpuscular Hemoglobin Concent 34.3 32.0-36.0 g/dL Red Cell Distribution Width 23.9 H 11.8-14.3 % Platelet Count 123 L 140-450 10^3/uL Mean Platelet Volume 9.0 6.9-10.8 fL Neutrophils (%) (Auto) 55.5 37.0-80.0 % Lymphocytes (%) (Auto) 34.2 10.0-50.0 % Monocytes (%) (Auto) 9.7 0.0-12.0 % Eosinophils (%) (Auto) 0.4 0.0-7.0 % Basophils (%) (Auto) 0.2 0.0-2.0 % Neutrophils # (Auto) 1.7 1.6-8.6 10 ^3/uL Lymphocytes # (Auto) 1.0 0.4-5.4 10 ^3/uL Monocytes # (Auto) 0.3 0-1.3 10 ^3/uL Eosinophils # (Auto) 0 0-0.8 10 ^3/uL Basophils # (Auto) 0 0-0.2 10 ^3/uL Nucleated Red Blood Cells 0.3 % Sodium Level 144 136-145 mmol/L Potassium Level 4.5 3.5-5.1 mmol/L Chloride Level 105 98-107 mmol/L Carbon Dioxide Level 29 20-31 mmol/L Anion Gap 10 5-15 Blood Urea Nitrogen 20 9-23 mg/dL Creatinine 1.12 H 0.550-1.02 mg/dL Glomerular Filtration Rate Calc 55 >90 mL/min BUN/Creatinine Ratio 17.9 10.0-20.0 Serum Glucose 163 H 74-106 mg/dL Lactic Acid Level 1.5 0.4-2.0 mmol/L Calcium Level 9.6 8.7-10.4 mg/dL Magnesium Level 2.1 1.6-2.6 mg/dL Total Bilirubin 0.4 0.2-1.0 mg/dL Aspartate Amino Transferase (AST) 29 13-40 U/L Alanine Aminotransferase (ALT) 52 H 7-40 U/L Alkaline Phosphatase 56 46-116 U/L Total Protein 6.9 5.7-8.2 g/dL Albumin 4.3 3.2-4.8 g/dL Urine Color Light-yellow Yellow Urine Clarity Clear Clear Urine pH 6.5 5.0-9.0 Urine Specific [place] 1.028 1.001-1.035 Urine Protein Negative Negative Urine Ketones 1+ H Negative Urine Blood Negative Negative /uL Urine Nitrite Negative Negative Urine Bilirubin Negative Negative Urine Urobilinogen Normal Negative mg/dL Urine Leukocyte Esterase Negative Negative /uL Urine RBC <1 0 - 4 /hpf Urine Microscopic WBC 1 0-5 /HPF Urine Squamous Epithelial Cells Few <5 /hpf Urine Bacteria None seen None Seen /hpf Urine Glucose 4+ H Normal mg/dL Test 04/20/25 15:33 Range/Units POC Glucose 171 H 70-106 mg/dl Current Medications Medications (Trade) Dose Ordered Sig/Jud Route Start Time Stop Time Status Last Admin Sodium Chloride 1,000 ml @ 1,000 mls/hr Q1H ONCE IV 04/20/25 17:00 04/20/25 17:59 DC 04/20/25 17:09 Time of 1ST Reevaluation: 16:10 Reevaluation 1ST: Unchanged Patient Education/Counseling: Diagnosis, Treatment Family Education/Counseling: No Family Present Comments Patient presented with the above HPI.-generalized weakness symptomatic anemia----workup was initiated. patient was found with the above mentioned diagnosis. the following medications were ordered: please refer to order lists of meds and tests obtained by myself Dr. Kidd. Patient ED course and VS have been stabilized. Patient has been reassessed in the ED and remained in a stable condition. Pertinent incidental findings were discussed with the patient and/or family. Patient/family voices understanding and is agreeable with plan. Patient has been observed in the ED adequate length of time to insure improvement/stability. Escalation of care considered: Consideration of escalation to observation or admission Patient was ADMITTED to the medicine team for further evaluation and treatment of their presentation. All the reports of any imaging studies that were ordered by myself were reviewed by myself. Departure 1 Departure Time of Disposition: 17:55 Impression: Primary Impression: Symptomatic anemia Additional Impressions: MDS (myelodysplastic syndrome) Thrombocytopenia Disposition: 09 ADMITTED INPATIENT Admit to: Tele Condition: Guarded Discharged With: Self Critical Care Note Critical Care Time?: Yes (45 min-critical care time only) Heart Score Heart Score: Heart Score Response (Comments) Value History N/A 0 EKG N/A 0 Age N/A 0 Risk Factors N/A 0 Troponin N/A 0 Total 0 I personally scribed for AMADA KIDD DO ([email or web address]) on 04/20/25 at 15:56. Electronically submitted by Debora Fernandez ([email or web address]). AMADA KIDD DO Apr 20, 2025 15:56
[2025-04-20 16:29] LABS: Urine Protein, UAD Negative (Negative)
[2025-04-20] MEDS: SODIUM CHLORIDE 0.9% 1,000 ML IV ONE (17:09)
[2025-04-20 17:20] LABS: Hemoglobin 7.2 g/dL (12.2-16.2); Nucleated Red Blood Cells % 0.3 %
[2025-04-20 17:22] LABS: Hematocrit 20.9 % (36.0-46.0); Mean Corpuscular Hemoglobin 32.4 pg (28.0-32.0); Mean Corpuscular Volume 94.2 fL (80.0-100.0)
[2025-04-20 17:38] LABS: Albumin 4.3 g/dL (3.2-4.8); Alkaline Phosphatase 56 U/L (46-116); Anion Gap 10 (5-15); BUN/Creatinine Ratio 17.9 (10.0-20.0); Bilirubin, Total 0.4 mg/dL (0.2-1.0); Blood Urea Nitrogen 20 mg/dL (9-23); Calcium 9.6 mg/dL (8.7-10.4); Carbon Dioxide 29 mmol/L (20-31); Chloride 105 mmol/L (98-107); Magnesium 2.1 mg/dL (1.6-2.6); Potassium 4.5 mmol/L (3.5-5.1); Sodium 144 mmol/L (136-145); Total Protein 6.9 g/dL (5.7-8.2)
[2025-04-20 17:39] LABS: Alanine Aminotransferase 52 U/L (7-40); Glucose 163 mg/dL (74-106)
--- NOTE | 2025-04-20 18:38 | DVH ---
CHEST RADIOGRAPH Indication: gen weak Technique: Single frontal view of the chest was obtained Comparison: None FINDINGS: Right IJ yun catheter tip projects over the SVC. The cardiac silhouette is unremarkable. The lungs demonstrate no pulmonary airspace consolidation. Th e pulmonary vasculature is unremarkable. There is no pleural effusion.. There is no pneumothorax. Ao rtic atherosclerotic disease. IMPRESSION: No pulmonary airspace consolidation.
[2025-04-20 19:45] LABS: Hematocrit 20.3 % (36.0-46.0)
[2025-04-20 19:54] LABS: Hemoglobin 7.0 g/dL (12.2-16.2)
[2025-04-20 21:58] VITALS: PULSE 79; RESP 14; O2SAT 97
[2025-04-20] MEDS: KETOROLAC TROMETH 30 MG/ML 1ML VIAL IV ONE (22:24)
[2025-04-20] MEDS ORDERED: DEXTROSE (50%) 50ML SYRG IV PRN (22:45)
[2025-04-20] MEDS ORDERED: ACETAMINOPHEN 325 MG TAB PO PRN (22:45)
[2025-04-20] MEDS ORDERED: ONDANSETRON HCL 4 MG/2 ML VIAL IV PRN (22:45)
--- NOTE | 2025-04-20 23:10 | DVHHP2 ---
History of Present Illness Reason for Visit: Symptomatic anemia History of Present Illness The patient is a 65-year-old female with past medical history of MDS, CVA, right-sided deficit, and hypertension who presented to [facility] ED with complaint of generalized weakness for the past 2 days. Patient stated that she started her oral chemotherapy yesterday which typically causes her to feel this way. Patient was seen and evaluated in the ED, laboratory data shows WBC 3.0, hemoglobin 7.0, hematocrit 20.3, platelets 123, sodium 144, potassium 4.5, BUN 20, creatinine 1.12, glucose 163, calcium 9.6, AST 29, ALT 52, troponin < 3, blood pressure 144/67, heart rate 77, temperature 98.4 F, O2 saturation 97% on room air. Chest x-ray showed no acute pulmonary airspace consolidation. Patient will receive 2 units of PRBC, please see medication orders section in the computer. On my assessment, patient denied chest pain, no headache, no dizziness, no diaphoresis, no shortness of breaths, no abdominal pain, no diarrhea, no nausea, no vomiting, no fever, no chills. Patient was admitted for further evaluation and medical management. Past Medical History CVA, MDS, right-sided deficit, hypertension, Past Surgical History Appendectomy Family History Reviewed, noncontributory to the management of this case. Past Social History The patient lives at home, denies smoking, alcohol or illicit drugs abuse. Review of Systems Constitutional: Yes: Weakness; No: Fever, Chills, Sweats, Malaise, Other Eyes: No: Pain, Vision change, Conjunctivae inflammation, Eyelid inflammation, Other, Redness ENT: No: Ear pain, Ear discharge, Nose pain, Nose discharge, Nose congestion, Mouth pain, Mouth swelling, Throat pain, Throat swelling, Other Respiratory: Shortness of breath; No: Cough, Dry, SOB with excertion, Wheezing, Hemoptysis, Pleuritic Pain, Sputum, Wheezing, Other Cardiovascular: No: Chest Pain, Palpitations, Orthopnea, Paroxysmal Noc. Dyspnea, Edema, Lt Headedness, Other Gastrointestinal: No: Nausea, Vomiting, Abdominal Pain, Diarrhea, Constipation, Melena, Hematochezia, Other Genitourinary: No Dysuria, No Frequency, No Incontinence, No Hematuria, No Retention, No Other Musculoskeletal: No: other, neck pain, shoulder pain, arm pain, back pain, hand pain, leg pain, foot pain Skin: No: Rash, Lesions, Jaundice, Bruising, Other Neurological: No: Weakness, Numbness, Incoordination, Change in speech, Confusion, Seizures, Other Allergies: Coded Allergies: NO KNOWN ALLERGIES (Unverified , 06/15/23) Medications Current Medications Medications Dose Ordered Sig/Jud Route Start Time Stop Time Status Last Admin Dose Admin Atorvastatin Calcium 10 mg HS PO 04/21/25 22:00 Lisinopril 20 mg DAILY PO 04/21/25 10:00 Hydralazine HCl 10 mg Q6HP PRN IV 04/20/25 22:45 Metoprolol Tartrate 25 mg BID PO 04/21/25 10:00 Diagnostic Test (Pha) 1 strip ACHS 04/21/25 07:00 Insulin Human Regular HS SC 04/21/25 22:00 Insulin Human Regular AC SC 04/21/25 07:00 Dextrose 50 ml UD PRN IV 04/20/25 22:45 Sodium Chloride 10 ml Q8HR IV 04/21/25 06:00 Acetaminophen/ Hydrocodone Bitart 1 tab Q4HP PRN PO 04/20/25 22:45 Ondansetron HCl 4 mg Q4HP PRN IV 04/20/25 22:45 Docusate Sodium 100 mg BIDPRN PRN PO 04/20/25 22:45 Acetaminophen 500 mg Q6HP PRN PO 04/20/25 22:45 Exam Vital Signs Vital Signs Date Time Temp Pulse Resp B/P (MAP) Pulse Ox O2 Delivery O2 Flow Rate FiO2 04/20/25 22:00 83 13 142/66 (91) 95 04/20/25 21:58 Room Air* 0 21 04/20/25 17:28 98.4 98.4 General Appearance: Alert, Oriented X3, Cooperative, No acute distress HEENT: Atraumatic, PERRLA, EOMI, Mucous membr. moist/pink Respiratory: Normal air movement Cardiovascular: Regular rate, Normal S1, Normal S2, No murmurs Abdominal: Normal bowel sounds, Soft, No tenderness, No hepatospenomegaly, No masses Extremities: No clubbing, No cyanosis, No edema, Normal pulses, No tenderness/swelling Skin: No rashes, No breakdown, No significant lesion Neuro: Normal speech, Normal tone, Sensation intact, Cranial nerves 3-12 NL, Reflexes 2+, Other (Generalized weakness) Psych/Mental Status: Mental status NL, Mood NL Labs/Xrays Labs Test 04/20/25 20:34 04/20/25 19:36 04/20/25 17:02 04/20/25 16:07 Range/Units Troponin I High Sensitivity < 3 L </=34 ng/L Hemoglobin 7.0 *L 12.2-16.2 g/dL Hematocrit 20.3 L 36.0-46.0 % White Blood Count 3.0 L 4.4-10.8 10^3/uL Red Blood Count 2.22 L 4.0-5.20 10^6/uL Mean Corpuscular Volume 94.2 80.0-100.0 fL Mean Corpuscular Hemoglobin 32.4 H 28.0-32.0 pg Mean Corpuscular Hemoglobin Concent 34.3 32.0-36.0 g/dL Red Cell Distribution Width 23.9 H 11.8-14.3 % Platelet Count 123 L 140-450 10^3/uL Mean Platelet Volume 9.0 6.9-10.8 fL Neutrophils (%) (Auto) 55.5 37.0-80.0 % Lymphocytes (%) (Auto) 34.2 10.0-50.0 % Monocytes (%) (Auto) 9.7 0.0-12.0 % Eosinophils (%) (Auto) 0.4 0.0-7.0 % Basophils (%) (Auto) 0.2 0.0-2.0 % Neutrophils # (Auto) 1.7 1.6-8.6 10 ^3/uL Lymphocytes # (Auto) 1.0 0.4-5.4 10 ^3/uL Monocytes # (Auto) 0.3 0-1.3 10 ^3/uL Eosinophils # (Auto) 0 0-0.8 10 ^3/uL Basophils # (Auto) 0 0-0.2 10 ^3/uL Nucleated Red Blood Cells 0.3 % Sodium Level 144 136-145 mmol/L Potassium Level 4.5 3.5-5.1 mmol/L Chloride Level 105 98-107 mmol/L Carbon Dioxide Level 29 20-31 mmol/L Anion Gap 10 5-15 Blood Urea Nitrogen 20 9-23 mg/dL Creatinine 1.12 H 0.550-1.02 mg/dL Glomerular Filtration Rate Calc 55 >90 mL/min BUN/Creatinine Ratio 17.9 10.0-20.0 Serum Glucose 163 H 74-106 mg/dL Lactic Acid Level 1.5 0.4-2.0 mmol/L Calcium Level 9.6 8.7-10.4 mg/dL Magnesium Level 2.1 1.6-2.6 mg/dL Total Bilirubin 0.4 0.2-1.0 mg/dL Aspartate Amino Transferase (AST) 29 13-40 U/L Alanine Aminotransferase (ALT) 52 H 7-40 U/L Alkaline Phosphatase 56 46-116 U/L Total Protein 6.9 5.7-8.2 g/dL Albumin 4.3 3.2-4.8 g/dL Urine Color Light-yellow Yellow Urine Clarity Clear Clear Urine pH 6.5 5.0-9.0 Urine Specific [place] 1.028 1.001-1.035 Urine Protein Negative Negative Urine Ketones 1+ H Negative Urine Blood Negative Negative /uL Urine Nitrite Negative Negative Urine Bilirubin Negative Negative Urine Urobilinogen Normal Negative mg/dL Urine Leukocyte Esterase Negative Negative /uL Urine RBC <1 0 - 4 /hpf Urine Microscopic WBC 1 0-5 /HPF Urine Squamous Epithelial Cells Few <5 /hpf Urine Bacteria None seen None Seen /hpf Urine Glucose 4+ H Normal mg/dL Test 04/20/25 15:33 Range/Units POC Glucose 171 H 70-106 mg/dl PATIENT: ASHUTOSH SCHULTZARISACCT: [id number] UNIT: [id number] : 1960 LOC: ER ROOM / BED: / AGE / SEX: 65 / F ADM STATUS: REG ER SERVICE 1650 ORDERING PHYSICIAN: AMADA KIDD DO PROCEDURE(s): CXRP - CHEST PORTABLE REASON: gen weak ORDER NUMBER(s): [id number], ACCESSION NUMBER(s): [id number] CHEST RADIOGRAPH Indication: gen kadie Technique: Single frontal view of the chest was obtained Comparison: None FINDINGS: Right IJ yun catheter tip projects over the SVC. The cardiac silhouette is unremarkable. The lungs demonstrate no pulmonary air space consolidation. The pulmonary vasculature is unremarkable. There is no pleural effusion. There is no pneumothorax. Aortic atherosclerotic disease. IMPRESSION: No pulmonary airspace consolidation. Assessment/Plan Assessment/Plan Symptomatic anemia Pancytopenia MDS (myelodysplastic syndrome) Generalized weakness Diabetes mellitus with hyperglycemia Plan 1. Admit to telemetry unit 2. Breathing treatment 3. Pain control management 4. Management of fluids and electrolytes 5. Consultation for hospitalist 6. Diagnostic tests-chest x-ray 7. DVT prophylaxis -on SCDs 8. Repeat labs CBC, CMP in a.m. 9. Continue with current medical management 10. Treatment plan discussed with patient and RN. Patient verbalized understanding. Plan discussed with: Patient, Other (RN) My Orders Orders - SALINAS MENDEZ DNP Procedure Category Date Status Time Atorvastatin (Lipitor) PHA 04/21/25 In Process 22:00 Lisinopril Tablet PHA 04/21/25 In Process (Zestril Tablet) 10:00 Hydralazine Injection PHA 04/20/25 In Process (Apresoline Inject 22:45 Metoprolol Tartrate PHA 04/21/25 In Process Tablet (Lopressor Ta 10:00 Consistent DIET 04/21/25 Transmitted Carb(Ccho)Diabetes Breakfast Glucose Blood PHA 04/21/25 In Process (Accu-Chek Comfort 07:00 Insulin R (Human) PHA 04/21/25 In Process (Insulin R) 22:00 Insulin R (Human) PHA 04/21/25 In Process (Insulin R) 07:00 Dextrose 50% Syringe PHA 04/20/25 In Process 22:45 Allergies EVON 04/20/25 In Process 22:32 Code Status CODE 04/20/25 Transmitted 22:32 Sodium Chloride Lock PHA 04/21/25 In Process (Saline Lock Ns) 06:00 Oxygen Per Hour RT 04/20/25 Transmitted 22:32 Hydrocodone-Acet PHA 04/20/25 In Process 5/325mg Tab ([place] 22:45 Ondansetron Hcl PHA 04/20/25 In Process (Zofran) 22:45 Docusate Sodium PHA 04/20/25 In Process Capsule (Colace 22:45 Fall Risk Precautions EVON 04/20/[address] 22:32 Complete Blood Count LAB 04/21/25 Verified 04:00 Comprehensive LAB 04/21/25 Verified Metabolic Panel 04:00 Condition: Serious EVON 04/20/25 In Process 22:32 Acetaminophen Tablet PHA 04/20/25 In Process (Tylenol Tablet) 22:45 Maintain Bed Rest EVON 04/20/25 In Process 22:32 Sequential EVON 04/20/25 In Process Compression Device Problem List: (1) Symptomatic anemia (2) Pancytopenia (3) MDS (myelodysplastic syndrome) (4) Generalized weakness (5) Diabetes mellitus with hyperglycemia Date of Service: Apr 20, 2025 Billing Provider: SALINAS MENDEZ DNP Common Visit Codes: 70131-[id number] INP/OBS CARE (HIGH) SALINAS MENDEZ DNP Apr 20, 2025 23:10
[2025-04-20] MEDS ORDERED: MORPHINE SULFATE INJ 2 MG/ml SYRG IV PRN (23:15)
[2025-04-20] MEDS ORDERED: NITROGLYCERIN 0.4 MG SL TAB SL PRN (23:15)
[2025-04-20 23:35] VITALS: BP 128/53; PULSE 81; RESP 12; TEMP 98.6
[2025-04-21] VITALS (15 sets, daily range): BP systolic 114–176; BP diastolic 55–84; PULSE 75–95; RESP 12–18; TEMP 97.7–98.3; O2SAT 95–100
[2025-04-21] MEDS: hydrALAZINE HCL 20 MG/ML VL IV PRN (04:01)
[2025-04-21] MEDS: SODIUM CHLOR 0.9% PF (SALINE LOCK) 10ML VIAL/SYR IV SCH (06:04)
[2025-04-21] MEDS: HYDROcodone-ACET 5/325MG TAB PO PRN (06:34)
[2025-04-21] MEDS: InsuLIN REG 1unit/0.01ml Soln (100units/ml) SC SCH ×2 (06:49→21:59)
[2025-04-21] MEDS: ACCU-CHEK COMFORT CURVE STRIP VI SCH (07:01)
[2025-04-21 07:05] LABS: Hematocrit 23.7 % (36.0-46.0); Hemoglobin 8.3 g/dL (12.2-16.2)
[2025-04-21 07:09] LABS: Albumin 3.9 g/dL (3.2-4.8); Alkaline Phosphatase 50 U/L (46-116); Anion Gap 9 (5-15); BUN/Creatinine Ratio 19.8 (10.0-20.0); Blood Urea Nitrogen 18 mg/dL (9-23); Calcium 9.0 mg/dL (8.7-10.4); Carbon Dioxide 25 mmol/L (20-31); Potassium 4.1 mmol/L (3.5-5.1); Sodium 142 mmol/L (136-145); Total Protein 6.6 g/dL (5.7-8.2)
[2025-04-21 07:10] LABS: Bilirubin, Total 0.8 mg/dL (0.2-1.0)
[2025-04-21 07:11] LABS: Alanine Aminotransferase 45 U/L (7-40); Chloride 108 mmol/L (98-107); Glucose 156 mg/dL (74-106)
[2025-04-21 07:20] LABS: Mean Corpuscular Hemoglobin 32.3 pg (28.0-32.0); Mean Corpuscular Volume 92.7 fL (80.0-100.0); Nucleated Red Blood Cells % 0.2 %
[2025-04-21] MEDS: METOPROLOL TARTRATE 25 MG TAB PO SCH (09:22)
[2025-04-21] MEDS: LISINOPRIL 20 MG TAB PO SCH (09:23)
[2025-04-21 10:38] LABS: Hepatitis B Surface Antigen Negative (Negative); Hepatitis C Antibody Negative (Negative)
[2025-04-21] MEDS: DOCUSATE SOD 100 MG CAP PO PRN (12:06)
--- NOTE | 2025-04-21 16:55 | DVHPN2 ---
Subjective I am assuming the care of the patient from today onwards. This patient came to the hospital with a generalized weakness lightheadedness dizziness found to have acute anemia status post 1 unit of packed RBC. Patient has stated that symptoms are improving. Changes from previous H/P or p: No Changes Eyes: No Pain, No Vision change, No Conjunctivae inflammation, No Eyelid inflammation, No Other, No Redness ENT: No Ear pain, No Ear discharge, No Nose pain, No Nose discharge, No Nose congestion, No Mouth pain, No Mouth swelling, No Throat pain, No Throat swelling, No Other Cardiovascular: No Chest Pain, No Palpitations, No Orthopnea, No Paroxysmal Noc. Dyspnea, No Edema, No Lt Headedness, No Other Respiratory: No Cough, No Dry; Shortness of breath; No SOB with excertion, No Wheezing, No Hemoptysis, No Pleuritic Pain, No Sputum, No Other Gastrointestinal: No Nausea, No Vomiting, No Abdominal Pain, No Diarrhea, No Constipation, No Melena, No Hematochezia, No Other Genitourinary: No Dysuria, No Frequency, No Incontinence, No Hematuria, No Retention, No Other Musculoskeletal: No other, No neck pain, No shoulder pain, No arm pain, No back pain, No hand pain, No leg pain, No foot pain Skin: No Rash, No Lesions, No Jaundice, No Bruising, No Other Objective Vitals Vital Signs Date Time Temp Pulse Resp B/P (MAP) Pulse Ox O2 Delivery O2 Flow Rate FiO2 04/21/25 16:49 98.1 95 18 161/84 (109) 97 98.1 04/21/25 08:00 Room Air* 0 21 Intake/Output Intake and Output 04/21/25 07:00 Intake Total 1475 ml Balance 1475 ml Intake Oral 100 ml IV Total 1000 ml Blood Product 375 ml Exam HEENT pupils are reactive Neck is supple CV is S1-S2 regular rate and rhythm Respiratory diminished breath sounds bases GI positive bowel sound Extremity no edema [employer] no motor deficit Medications Current Medications Medications Dose Ordered Sig/Jud Route Start Time Stop Time Status Last Admin Dose Admin Atorvastatin Calcium 10 mg HS PO 04/21/25 22:00 Lisinopril 20 mg DAILY PO 04/21/25 10:00 04/21/25 09:23 20 MG Hydralazine HCl 10 mg Q6HP PRN IV 04/20/25 22:45 04/21/25 04:01 10 MG Metoprolol Tartrate 25 mg BID PO 04/21/25 10:00 04/21/25 09:22 25 MG Diagnostic Test (Pha) 1 strip ACHS 04/21/25 07:00 04/21/25 11:30 1 STRIP Insulin Human Regular HS SC 04/21/25 22:00 Insulin Human Regular AC SC 04/21/25 07:00 04/21/25 06:49 2 UNITS Dextrose 50 ml UD PRN IV 04/20/25 22:45 Sodium Chloride 10 ml Q8HR IV 04/21/25 06:00 04/21/25 13:26 10 ML Acetaminophen/ Hydrocodone Bitart 1 tab Q4HP PRN PO 04/20/25 22:45 04/21/25 06:34 1 TAB Ondansetron HCl 4 mg Q4HP PRN IV 04/20/25 22:45 Docusate Sodium 100 mg BIDPRN PRN PO 04/20/25 22:45 04/21/25 12:06 100 MG Acetaminophen 500 mg Q6HP PRN PO 04/20/25 22:45 Nitroglycerin 0.4 mg Q5MINP PRN SL 04/20/25 23:15 Morphine Sulfate 2 mg Q30M PRN IV 04/20/25 23:15 Laboratory Results Laboratory Tests 04/21/25 06:02 Chemistry Test 04/20/25 17:02 04/21/25 06:02 Albumin 4.3 g/dL (3.2-4.8) 3.9 g/dL (3.2-4.8) Calcium Level 9.6 mg/dL (8.7-10.4) 9.0 mg/dL (8.7-10.4) Magnesium Level 2.1 mg/dL (1.6-2.6) Total Protein 6.9 g/dL (5.7-8.2) 6.6 g/dL (5.7-8.2) LFT Test 04/20/25 17:02 04/21/25 06:02 Alanine Aminotransferase (ALT) 52 U/L (7-40) H 45 U/L (7-40) H Alkaline Phosphatase 56 U/L (46-116) 50 U/L (46-116) Aspartate Amino Transferase (AST) 29 U/L (13-40) 31 U/L (13-40) Total Bilirubin 0.4 mg/dL (0.2-1.0) 0.8 mg/dL (0.2-1.0) Urinalysis Test 04/20/25 16:07 Urine Color Light-yellow (Yellow) Urine Clarity Clear (Clear) Urine pH 6.5 (5.0-9.0) Urine Specific [place] 1.028 (1.001-1.035) Urine Protein Negative (Negative) Urine Ketones 1+ (Negative) H Urine Blood Negative /uL (Negative) Urine Nitrite Negative (Negative) Urine Bilirubin Negative (Negative) Urine Urobilinogen Normal mg/dL (Negative) Urine Leukocyte Esterase Negative /uL (Negative) Urine RBC <1 /hpf (0 - 4) Urine Microscopic WBC 1 /HPF (0-5) Urine Squamous Epithelial Cells Few /hpf (<5) Urine Bacteria None seen /hpf (None Seen) Urine Glucose 4+ mg/dL (Normal) H Assessment/Plan Assessment/Plan 65-year-old female with a known history of myelodysplastic syndrome currently started on chemotherapy recently, diabetes mellitus type 2, hypertension, previous history of CVA presented to the hospital with a generalized weakness lightheadedness dizziness found to have 1. Acute symptomatic anemia 2. Pancytopenia 3. Myelodysplastic syndrome currently on chemotherapy 4. Generalized weakness with the lightheadedness dizziness secondary to 1. Currently improved 5. Diabetes mellitus type 2 6. Hypertension -monitor H&H, PT evaluation and treatment, discharge plan to Plan discussed with: Patient Date of Service: Apr 21, 2025 Billing Provider: SHERI MATTHEWS MD Common Visit Codes: [id number] INP/OBS CARE(MOD) SHERI MATTHEWS MD Apr 21, 2025 16:55
[2025-04-21] MEDS: ATORVASTATIN 20 MG TAB PO SCH (22:03)
[2025-04-22 01:00] VITALS: BP 115/57; PULSE 79; RESP 17; TEMP 97.8; O2SAT 97
[2025-04-22 05:00] VITALS: BP 138/75; PULSE 68; RESP 18; TEMP 97.9; O2SAT 95
[2025-04-22 08:00] VITALS: PULSE 79; RESP 18
[2025-04-22 09:00] VITALS: BP 166/88; PULSE 73; RESP 18; TEMP 98.3; O2SAT 97
--- NOTE | 2025-04-22 16:53 | DVHDS2 ---
Discharge Summary Date of Admission Apr 20, 2025 at 23:08 Date of Discharge: Apr 22, 2025 Labs/Diagnostic Data: Laboratory Results Test 04/22/25 11:41 04/21/25 06:02 04/20/25 20:34 04/20/25 17:02 POC Glucose 124 mg/dl (70-106) White Blood Count 4.4 10^3/uL (4.4-10.8) Red Blood Count 2.55 10^6/uL (4.0-5.20) Hemoglobin 8.3 g/dL (12.2-16.2) Hematocrit 23.7 % (36.0-46.0) Mean Corpuscular Volume 92.7 fL (80.0-100.0) Mean Corpuscular Hemoglobin 32.3 pg (28.0-32.0) Mean Corpuscular Hemoglobin Concent 34.9 g/dL (32.0-36.0) Red Cell Distribution Width 21.1 % (11.8-14.3) Platelet Count 97 10^3/uL (140-450) Mean Platelet Volume 8.8 fL (6.9-10.8) Neutrophils (%) (Auto) 74.7 % (37.0-80.0) Lymphocytes (%) (Auto) 15.8 % (10.0-50.0) Monocytes (%) (Auto) 9.1 % (0.0-12.0) Eosinophils (%) (Auto) 0.3 % (0.0-7.0) Basophils (%) (Auto) 0.1 % (0.0-2.0) Neutrophils # (Auto) 3.3 10 ^3/uL (1.6-8.6) Lymphocytes # (Auto) 0.7 10 ^3/uL (0.4-5.4) Monocytes # (Auto) 0.4 10 ^3/uL (0-1.3) Eosinophils # (Auto) 0 10 ^3/uL (0-0.8) Basophils # (Auto) 0 10 ^3/uL (0-0.2) Nucleated Red Blood Cells 0.2 % Sodium Level 142 mmol/L (136-145) Potassium Level 4.1 mmol/L (3.5-5.1) Chloride Level 108 mmol/L (98-107) Carbon Dioxide Level 25 mmol/L (20-31) Anion Gap 9 (5-15) Blood Urea Nitrogen 18 mg/dL (9-23) Creatinine 0.91 mg/dL (0.550-1.02) Glomerular Filtration Rate Calc 70 mL/min (>90) BUN/Creatinine Ratio 19.8 (10.0-20.0) Serum Glucose 156 mg/dL (74-106) Calcium Level 9.0 mg/dL (8.7-10.4) Total Bilirubin 0.8 mg/dL (0.2-1.0) Aspartate Amino Transferase (AST) 31 U/L (13-40) Alanine Aminotransferase (ALT) 45 U/L (7-40) Alkaline Phosphatase 50 U/L (46-116) Total Protein 6.6 g/dL (5.7-8.2) Albumin 3.9 g/dL (3.2-4.8) Hepatitis B Surface Antigen Negative (Negative) Hepatitis C Antibody Negative (Negative) Troponin I High Sensitivity < 3 ng/L (</=34) Lactic Acid Level 1.5 mmol/L (0.4-2.0) Magnesium Level 2.1 mg/dL (1.6-2.6) Test 04/20/25 16:07 Urine Color Light-yellow (Yellow) Urine Clarity Clear (Clear) Urine pH 6.5 (5.0-9.0) Urine Specific [place] 1.028 (1.001-1.035) Urine Protein Negative (Negative) Urine Ketones 1+ (Negative) Urine Blood Negative /uL (Negative) Urine Nitrite Negative (Negative) Urine Bilirubin Negative (Negative) Urine Urobilinogen Normal mg/dL (Negative) Urine Leukocyte Esterase Negative /uL (Negative) Urine RBC <1 /hpf (0 - 4) Urine Microscopic WBC 1 /HPF (0-5) Urine Squamous Epithelial Cells Few /hpf (<5) Urine Bacteria None seen /hpf (None Seen) Urine Glucose 4+ mg/dL (Normal) Other Laboratory Tests 04/21/25 06:02 Brief Hx & Hospital Course: 65-year-old female with a known history of myelodysplastic syndrome currently started on chemotherapy recently, diabetes mellitus type 2, hypertension, previous history of CVA presented to the hospital with a generalized weakness lightheadedness dizziness found to have acute symptomatic anemia. Patient does have known history of myelodysplastic syndrome currently on chemotherapy. Patient has generalized weakness lightheadedness and dizziness has been resolved. Patient is status post 1 unit of packed RBC. Patient left against medical advice before completion of workup and treatment. Condition at Discharge: Stable Final Diagnosis/Problems List 65-year-old female with a known history of myelodysplastic syndrome currently started on chemotherapy recently, diabetes mellitus type 2, hypertension, previous history of CVA presented to the hospital with a generalized weakness lightheadedness dizziness found to have 1. Acute symptomatic anemia 2. Pancytopenia 3. Myelodysplastic syndrome currently on chemotherapy 4. Generalized weakness with the lightheadedness dizziness secondary to 1. Currently improved 5. Diabetes mellitus type 2 6. Hypertension Discharge Disposition: AMA SNF Discharge Will this Physician continue t: No Discharge Instruct/Medications Scheduled Atorvastatin Calcium (Atorvastatin Calcium), 1 TAB PO DAILY, (Reported) Citalopram Hydrobromide (Celexa), 1 TAB PO DAILY, (Reported) Empagliflozin (Jardiance), 1 TAB PO DAILY, (Reported) Gabapentin (Gabapentin), 1,200 MG PO DAILY, (Reported) Gabapentin (Gabapentin), 1 CAP PO TID Lisinopril (Lisinopril), 40 MG PO DAILY, (Reported) Metformin Hydrochloride (Metformin Hcl), 1 TAB PO TID, (Reported) Metoprolol Succinate (Metoprolol Succinate Er), 1 TAB PO DAILY, (Reported) Nifedipine (Nifedipine Er), 1 TAB PO DAILY, (Reported) Scheduled PRN Alprazolam (Xanax), 1 TAB PO DAILY PRN Miscellaneous Medications Trazodone Hcl (Trazodone Hcl), 100 MG PO, (Reported) Discontinued Medications Insulin Lispro (Human) (Humalog), UNIT SC, (Reported) Discharge Statement: "Patient was advised to return to the ER or call 911 if any headaches, dizziness, shortness of breath, chest pain, abdominal pain, bleeding, fevers, or worsening of medical condition. Patient was counseled about treatment plan, medications, possible side effects, patientverbalized understanding. All questions were answered to the best of my ability. This discharge took greater then 30 minutes in planning, reviewing documentation, counseling the patient, and discussing with other team members." ASSESSMENT ASSESSMENT Assessment Date of Service: Apr 22, 2025 Billing Provider: SHERI MATTHEWS MD Common Visit Codes: [id number] DISCH DAY >30min SHERI MATTHEWS MD Apr 22, 2025 16:53
== END 2025-04-22 15:30 | disposition left against medical advice (07) | DRG 812 ==
LOC: ER 15:05 → OVERFLOW 23:08 → TELE-WESTW 04-21 01:18
PROVIDERS: ADMIT Nurse Practitioner Family; ATTEND Nurse Practitioner Family
PROC: 30233N1 Transfusion of Nonautologous Red Blood Cells into Peripheral Vein, Percutaneous Approach (ICD-10-PCS; principal; 2025-04-20)
DX: D46.9 Myelodysplastic syndrome, unspecified (principal); D61.818 Other pancytopenia; E11.65 Type 2 diabetes mellitus with hyperglycemia; I11.0 Hypertensive heart disease with heart failure; I50.9 Heart failure, unspecified; Z53.29 Procedure and treatment not carried out because of patient's decision for other reasons; E78.5 Hyperlipidemia, unspecified; F32.A Depression, unspecified; Z90.49 Acquired absence of other specified parts of digestive tract; Z98.51 Tubal ligation status; Z86.73 Personal history of transient ischemic attack (TIA), and cerebral infarction without residual deficits; Z79.899 Other long term (current) drug therapy
CPT/HCPCS: 36415; 71045; 80053; 81001; 82962; 83605; 83735; 84484; 85014; 85018; 85025; 86803; 86850; 86900; 86901; 86902; 86922; 87340; 96361; 96374; 99291; G0378; J1815; J1885

== ENCOUNTER 2025-05-03 18:08 | Inpatient (IN) | payer MEDICARE, MEDICAID ==
[~2025-05-03] VITALS: Ht 157.5 cm; Wt 86.6 kg
[~2025-05-03 18:08] MED LIST changes: -INSLISPI SC
--- NOTE | 2025-05-03 18:38 | ED.PDOC ---
History of Present Illness HPI Comments 65 year old female presents to the ED with a chief complaint of abnormal labs onset today (05/03/25). Patient states she had lab work done at [facility], yesterday, was called today and was told hemoglobin was at 6.8. Patient gets frequent blood transfusions due to PMHX of MDS, last blood transfusion was at [facility] on 04/20/25, received 1 unit of PRBCs. She reports experiencing chills after receiving 1 unit of PRBCs. Second unit was not administered. Patient left AMA on 04/21/25. She is currently experiencing weakness, lightheaded/dizziness, generalized body aches. PMHx MDS, depression, DM, HTN, HLD, anemia, CHF, CVA. Denies chest pain, shortness of breath, headache, nausea, vomiting, diarrhea, abdominal pain, hematemesis, fevers, chills. No other symptoms or modifying factors present at this time. Chief Complaint: Abnormal LAB's Time Seen by MD: 18:25 Primary Care Provider: unknown Reviewed Notes: Medications, Allergies Allergies: Coded Allergies: NO KNOWN ALLERGIES (Unverified , 06/15/23) Home Meds Active Scripts Gabapentin (Gabapentin) 300 Mg Cap, 1 CAP PO TID, #90 CAP 5 Refills Prov:JAYDA SAMANIEGO MD 06/13/24 Alprazolam (Xanax) 0.25 Mg Tb, 1 TAB PO DAILY PRN for 30 Days, #30 TAB Prov:HORACIO HENAO MD 01/07/24 Reported Medications Trazodone Hcl (Trazodone Hcl) 100 Mg Tab, 100 MG PO, MG 01/04/24 Lisinopril (Lisinopril) 40 Mg Tab, 40 MG PO DAILY for 30 Days, MG 01/04/24 Metoprolol Succinate (Metoprolol Succinate Er) 25 Mg Tab, 1 TAB PO DAILY 08/01/23 Nifedipine (Nifedipine Er) 30 Mg Tab, 1 TAB PO DAILY 08/01/23 Atorvastatin Calcium (ATORVASTATIN CALCIUM) 10 Mg Tab, 1 TAB PO DAILY 08/01/23 Metformin Hydrochloride (Metformin Hcl) 500 Mg Tab, 1 TAB PO TID 08/01/23 Empagliflozin (Jardiance) 10 Mg Tab, 1 TAB PO DAILY 08/01/23 Citalopram Hydrobromide (Celexa) 10 Mg Tab, 1 TAB PO DAILY, #30 TAB 2 Refills 06/29/23 Gabapentin (Gabapentin) 600 Mg Tab, 1200 MG PO DAILY for 30 Days, MG 06/29/23 Information Source: Patient Mode of Arrival: Ambulatory Severity: Moderate Timing: Hours Duration: Since onset Prehospital treatment: None Vital Signs Vital Signs Date Time Temp Pulse Resp B/P (MAP) Pulse Ox O2 Delivery O2 Flow Rate FiO2 05/03/25 18:45 83 05/03/25 18:29 98.6 18 155/66 (95) 96 98.6 Physical Exam PHYSICAL EXAM: General: Awake, alert and oriented. No acute distress. Skin: Skin in warm, dry and intact. Appropriate color for ethnicity. HEENT: The head is normocephalic and atraumatic. Conjunctivae are clear without exudates or hemorrhage. Sclera is non-icteric. EOM are intact. No signs of nyst agmus. Eyelids are normal in appearance without swelling or lesions. Oral mucosa is pink and moist Neck: The neck is supple with normal range of motion. No JVD. Cardiac: Heart rate and rhythm are normal. No murmurs, gallops, or rubs are auscultated. Respiratory: No signs of respiratory distress. Lung sounds are clear in all lobes bilaterally without rales, rhonchi, or wheezes. Abdominal: Abdomen is soft, non-tender without distention, guarding or rigidity. Bowel sounds are present and normoactive in all four quadrants. Extremities: Upper and lower extremities are atraumatic in appearance without deformity or edema. Neurological: The patient is awake, alert and oriented to person, place, and time with normal speech. Speech is clear. There is no facial asymmetry. Psychiatric: Appropriate mood and affect. Good judgement and insight. Review of Systems: REVIEW OF SYSTEMS: As stated in HPI Past Medical History PAST MEDICAL HISTORY: Anemia, Cancer (MDS), CHF, CVA, Depression, DM, High Lipids, HTN Surgical History: Appendectomy, BTL PATIENT CARE MANAGER History: Denies all PATIENT CARE MANAGER Hx Family History Family History: Reviewed,noncontributory to illness Social History Smoker: Non-Smoker Alcohol: Denies ETOH Use Drugs: Denies Drug Use Lives In: Home Was a procedure done? Was a procedure done?: No EKG EKG : Pulse Rate (adult): 83 Cardiac Rhythm: NSR Comments No STEMI Differential Dx Considerations may include: Differential diagnoses considered includebut arenot limited to Anemia, CO Poisoning, Methemoglobinemia, Hyperventilation, Metabolic Acidosis, Pulmonary Edema, Pneumonia, ACS, Pericardial Tamponade, Anxiety, other X-Ray, Labs, Meds, VS Vital Signs Date Time Temp Pulse Resp B/P (MAP) Pulse Ox O2 Delivery O2 Flow Rate FiO2 05/03/25 18:45 83 05/03/25 18:39 83 05/03/25 18:29 98.6 89 18 155/66 (95) 96 98.6 Lab Test 05/03/25 19:00 Range/Units White Blood Count 2.8 L 4.4-10.8 10^3/uL Red Blood Count 2.09 L 4.0-5.20 10^6/uL Hemoglobin 6.9 *L 12.2-16.2 g/dL Hematocrit 19.7 L 36.0-46.0 % Mean Corpuscular Volume 94.3 80.0-100.0 fL Mean Corpuscular Hemoglobin 33.1 H 28.0-32.0 pg Mean Corpuscular Hemoglobin Concent 35.1 32.0-36.0 g/dL Red Cell Distribution Width 22.8 H 11.8-14.3 % Platelet Count 98 L 140-450 10^3/uL Mean Platelet Volume 9.2 6.9-10.8 fL Neutrophils (%) (Auto) 51.2 37.0-80.0 % Lymphocytes (%) (Auto) 39.0 10.0-50.0 % Monocytes (%) (Auto) 8.6 0.0-12.0 % Eosinophils (%) (Auto) 0.6 0.0-7.0 % Basophils (%) (Auto) 0.6 0.0-2.0 % Neutrophils # (Auto) 1.4 L 1.6-8.6 10 ^3/uL Lymphocytes # (Auto) 1.1 0.4-5.4 10 ^3/uL Monocytes # (Auto) 0.2 0-1.3 10 ^3/uL Eosinophils # (Auto) 0 0-0.8 10 ^3/uL Basophils # (Auto) 0 0-0.2 10 ^3/uL Nucleated Red Blood Cells 0.1 % Sodium Level 139 136-145 mmol/L Potassium Level 4.0 3.5-5.1 mmol/L Chloride Level 104 98-107 mmol/L Carbon Dioxide Level 24 20-31 mmol/L Anion Gap 11 5-15 Blood Urea Nitrogen 27 H 9-23 mg/dL Creatinine 1.05 H 0.550-1.02 mg/dL Glomerular Filtration Rate Calc 59 >90 mL/min BUN/Creatinine Ratio 25.7 H 10.0-20.0 Serum Glucose 178 H 74-106 mg/dL Calcium Level 10.4 8.7-10.4 mg/dL Magnesium Level 2.0 1.6-2.6 mg/dL Total Bilirubin 0.4 0.2-1.0 mg/dL Direct Bilirubin 0.1 <0.3 mg/dL Aspartate Amino Transferase (AST) 24 13-40 U/L Alanine Aminotransferase (ALT) 50 H 7-40 U/L Alkaline Phosphatase 55 46-116 U/L Troponin I High Sensitivity < 3 L </=34 ng/L B-Type Natriuretic Peptide 29.86 0-100 pg/mL Total Protein 7.5 5.7-8.2 g/dL Albumin 4.7 3.2-4.8 g/dL Time of 1ST Reevaluation: 18:55 Reevaluation 1ST: Unchanged Patient Education/Counseling: Diagnosis, Treatment, Other (Need for admission) Family Education/Counseling: No Family Present SEPSIS Sepsis Screen Physician Orders Chest Xray 1 View (05/03/25 18:41) Electrocardigram (05/03/25 18:45) Pulse Ox Cont Per Day (05/03/25 19:46) Administer Blood Products UD (05/03/25 19:46) Vital Signs Date Time Temp Pulse Resp B/P (MAP) Pulse Ox O2 Delivery O2 Flow Rate FiO2 05/03/25 18:45 83 05/03/25 18:39 83 05/03/25 18:29 98.6 89 18 155/66 (95) 96 98.6 Laboratory Tests Test 05/03/25 19:00 White Blood Count 2.8 10^3/uL (4.4-10.8) L Departure 1 Departure Time of Disposition: 19:52 Impression: Primary Impression: Symptomatic anemia Additional Impression: MDS (myelodysplastic syndrome) Disposition: 09 ADMITTED INPATIENT Condition: Stable Comments MDM: 65-year-old female with a history of myelodysplastic syndrome, possible non hemolytic transfusion reaction during last transfusion with symptomatic anemia- hemoglobin of 6.9 2 units PRBC (leukoreduced, irradiated and washed) ordered and patient will be pretreated with Tylenol and Benadryl Patient admitted to hospitalist service for further treatment, evaluation and monitoring. Extensive evaluation was performed in attempt to identify or rule out: (See differential diagnosis section) The following tests were ordered, and results were reviewed by me and discussed with patient: (See diagnostic results section) The following test were independently interpreted by me: EKG I reviewed and agreed with the following test results read by other providers: Chest x-ray I reviewed the following notes from the pt's past medical encounters: Yes Additional information was gathered from interviewing the following independent historians: N/A Discussion of management or test interpretation with external physician/other qualified health career technical counselor: N/A Addressed an acute or chronic illness that poses a threat to life or bodily function: Symptomatic anemia Decision regarding hospitalization or escalation of hospital level of care: Risk and benefits of admission for further treatment of patient's condition was considered. Due to patient's current clinical condition, high risk of decline and poor outcome if discharged and need for further inpatient management and monitoring, patient will be admitted to the hospital. Critical Care Note Critical Care Time?: No Stability Stability form required: No I personally scribed for LUDMILA ISSA MD ([email or web address]) on 05/03/25 at 18:38. Electronically submitted by Chandni Cagle ([email or web address]). I personally scribed for LUDMILA ISSA MD ([email or web address]) on 05/03/25 at 18:45. Electronically submitted by Chandni Cagle ([email or web address]). LUDMILA ISSA MD May 03, 2025 18:38
[2025-05-03 19:14] LABS: Hematocrit 19.7 % (36.0-46.0); Mean Corpuscular Hemoglobin 33.1 pg (28.0-32.0); Mean Corpuscular Volume 94.3 fL (80.0-100.0); Nucleated Red Blood Cells % 0.1 %
[2025-05-03 19:16] LABS: Hemoglobin 6.9 g/dL (12.2-16.2)
[2025-05-03 19:27] LABS: Chloride 104 mmol/L (98-107); Potassium 4.0 mmol/L (3.5-5.1); Sodium 139 mmol/L (136-145)
[2025-05-03 19:28] LABS: Anion Gap 11 (5-15); Calcium 10.4 mg/dL (8.7-10.4); Carbon Dioxide 24 mmol/L (20-31)
[2025-05-03 19:33] LABS: BUN/Creatinine Ratio 25.7 (10.0-20.0)
[2025-05-03 19:34] LABS: Blood Urea Nitrogen 27 mg/dL (9-23); Glucose 178 mg/dL (74-106)
--- NOTE | 2025-05-03 19:42 | DVH ---
EXAMINATION: Chest x-ray 1 view CLINICAL HISTORY: anemia, port placement, sob COMPARISON: XY CHEST PORTABLE on DOS: 04/20/25 FINDINGS: Right chest port catheter tip projects over the SVC. No dominant pulmonary consolidations. The costophrenic angles appear clear. No sizable pleural effus ions or pneumothorax identified. The cardiomediastinal silhouette appears within normal limits given technique. IMPRESSION: No acute cardiopulmonary findings as visualized.
--- NOTE | 2025-05-03 21:43 | DVHHP2 ---
History of Present Illness History of Present Illness Patient is 65 years old female with past medical history of MDS, hypertension, diabetes mellitus type 2, hyperlipidemia, CVA, HFpEF-EF 60%, OA, depression came with a complaint of abdominal lab and severe lower back pain. Patient states she had lab work done at [facility], yesterday, got a called today from [facility] and was told hemoglobin was 6.8. Patient gets frequent blood tra nsfusions due to PMHX of MDS, last blood transfusion was at [facility] on 04/20/25, received 1 unit of PRBCs. She reports experiencing chills after receiving 1 unit of PRBCs. Second unit was not administered. Patient left AMA on 04/21/25. Patient also reported intractable lower back pain started yesterday, 07/28, sharp, aggravated with sitting still, some relief with pain medication, no radiation. Patient also endorsed feeling tired and fatigue and dizziness and body ache for a while. Patient denied any fever, bloody diarrhea, hematemesis, hemoptysis, dysuria, hematuria. Initial lab workup revealed pancytopenia with WBC 2.8, hemoglobin 6.9, platelet 98. Serum creatinine 1.05. Chest x-ray NAD. Patient's recent echo on 04/06/2025 revealed LVEF 60%, [id number] elevated right ventricular pressure 61 mm of mercury. Past Medical History MDS, hypertension, diabetes mellitus type 2, hyperlipidemia, CVA, HFpEF-EF 60%,, depression, OA Past Surgical History Appendectomy, bilateral tubal ligation Past Social History Denies smoking/alcoholism/drug abuse Review of Systems Review of Systems Allergy- NKDA Patient was seen today at the bedside. Cardiovascular- deny acute chest pain or shortness of breath or cough or palpitation Respiratory denies cough or short of breath or wheezing Gastrointestinal- denies any rectal bleeding, nausea or vomiting Musculoskeletal-denies acute joint swelling or tenderness or redness Neurological- denies acute dysarthria, dysphagia, change in vision Psychiatry- denies depression or SI or HI Skin- denies acute rash or purpura Allergies: Coded Allergies: NO KNOWN ALLERGIES (Unverified , 06/15/23) Medications Current Medications Medications Dose Ordered Sig/Jud Route Start Time Stop Time Status Last Admin Dose Admin Sodium Chloride 10 ml Q8HR IV 05/03/25 22:00 UNV Exam Vital Signs Vital Signs Date Time Temp Pulse Resp B/P (MAP) Pulse Ox O2 Delivery O2 Flow Rate FiO2 05/03/25 18:45 83 05/03/25 18:29 98.6 18 155/66 (95) 96 98.6 Exam General examination-awake, alert, tired looking HEENT- PEERLA, no acute nasal discharge Cardiovascular- S1-S2 audible, rate and rhythm regular, no murmur Respiratory- CTAB, no wheeze or rhonchi Gastrointestinal-nontender, bowel sound+. Nondistended Musculoskeletal-no acute joint swelling or tenderness or redness Lower extremity- no leg edema Neurological- cranial nerves intact, no acute dysarthria or dysphagia Psychiatry- denies depression or SI or HI Skin- no acute rash or purpura Labs/Xrays Labs Test 05/03/25 19:00 Range/Units White Blood Count 2.8 L 4.4-10.8 10^3/uL Red Blood Count 2.09 L 4.0-5.20 10^6/uL Hemoglobin 6.9 *L 12.2-16.2 g/dL Hematocrit 19.7 L 36.0-46.0 % Mean Corpuscular Volume 94.3 80.0-100.0 fL Mean Corpuscular Hemoglobin 33.1 H 28.0-32.0 pg Mean Corpuscular Hemoglobin Concent 35.1 32.0-36.0 g/dL Red Cell Distribution Width 22.8 H 11.8-14.3 % Platelet Count 98 L 140-450 10^3/uL Mean Platelet Volume 9.2 6.9-10.8 fL Neutrophils (%) (Auto) 51.2 37.0-80.0 % Lymphocytes (%) (Auto) 39.0 10.0-50.0 % Monocytes (%) (Auto) 8.6 0.0-12.0 % Eosinophils (%) (Auto) 0.6 0.0-7.0 % Basophils (%) (Auto) 0.6 0.0-2.0 % Neutrophils # (Auto) 1.4 L 1.6-8.6 10 ^3/uL Lymphocytes # (Auto) 1.1 0.4-5.4 10 ^3/uL Monocytes # (Auto) 0.2 0-1.3 10 ^3/uL Eosinophils # (Auto) 0 0-0.8 10 ^3/uL Basophils # (Auto) 0 0-0.2 10 ^3/uL Nucleated Red Blood Cells 0.1 % Sodium Level 139 136-145 mmol/L Potassium Level 4.0 3.5-5.1 mmol/L Chloride Level 104 98-107 mmol/L Carbon Dioxide Level 24 20-31 mmol/L Anion Gap 11 5-15 Blood Urea Nitrogen 27 H 9-23 mg/dL Creatinine 1.05 H 0.550-1.02 mg/dL Glomerular Filtration Rate Calc 59 >90 mL/min BUN/Creatinine Ratio 25.7 H 10.0-20.0 Serum Glucose 178 H 74-106 mg/dL Calcium Level 10.4 8.7-10.4 mg/dL Troponin I High Sensitivity < 3 L </=34 ng/L SEPSIS Sepsis Screen Date sepsis recognized/suspect: May 03, 2025 Time Sepsis recognized/suspect: 1819 Recent Procedure: No On Antibiotic Therapy: No Respiratory Rate >20: No Heart Rate >90: No Temp<36 C (96.8 F) or >38.3 C: No SBP <90 or MAP <65 mmHG: No New Acute Mental Status Change: No Is the patient on CPAP, BIPAP,: No Physician Orders Chest Xray 1 View (05/03/25 18:41) Electrocardigram (05/03/25 18:45) Packedcell-Noactive Bleeding (05/03/25 19:46) Pulse Ox Cont Per Day (05/03/25 19:46) Administer Blood Products UD (05/03/25 19:46) Admit (05/03/25 21:40) Code Status (05/03/25 21:40) Sodium Chloride Lock (Saline Lock Ns) (05/03/25 22:00) Complete Blood Count (05/04/25 04:00) Comprehensive Metabolic Panel (05/04/25 04:00) Cardiac Diet-2gna,Lofat,Lochol (05/04/25 Breakfast) Notify Of Changes From Base (05/03/25 21:40) Morphine Sulfate Injection (05/03/25 21:45) Morphine Sulfate Injection (05/03/25 21:45) Pantoprazole Tablet (Protonix Tablet) (05/03/25 21:45) Pantoprazole Tablet (Protonix Tablet) (05/04/25 06:00) Vital Signs Date Time Temp Pulse Resp B/P (MAP) Pulse Ox O2 Delivery O2 Flow Rate FiO2 05/03/25 18:45 83 05/03/25 18:39 83 05/03/25 18:29 98.6 89 18 155/66 (95) 96 98.6 Laboratory Tests Test 05/03/25 19:00 White Blood Count 2.8 10^3/uL (4.4-10.8) L Assessment/Plan Assessment/Plan Assessment and plan #Intractable lower back pain, rule out vertebral fracture/musculoskeletal pain -x-ray lumbar spine-no acute fracture, chronic degenerative change -continue pain medication as prescribed # severe anemia likely due to myelodysplastic syndrome # pancytopenia likely due to myelodysplastic syndrome -blood transfusion order in place -monitor CBC # hypertension -continuing Procardia XL 30 mg p.o. daily -continue lisinopril 40 mg p.o. daily -Monitor blood pressure # hyperlipidemia -continue atorvastatin 10 mg p.o. daily # diabetes mellitus type 2 -continue Jardiance 10 mg p.o. daily # history of CVA # depression -continue citalopram 10 mg p.o. daily # anxiety -continue alprazolam 0.5 mg p.o. daily PRN # HFpEF, EF 60% -continue Jardiance 10 mg p.o. daily -continue lisinopril 40 mg p.o. daily # pulmonary hypertension -follow up with the patient primary care physician PCP-Dr. Sandro Osman Goals of care, Code status full code ; discussed with >15 minutes PUD prophylaxis: Pantoprazole DVT prophylaxis: SCD Plan discussed with Dr. Harden , nursing staff, Total time spent on patient evaluation, chart review, assessment and plan, discussion discussion >35 minutes Plan discussed with: Patient, Other (RN) My Orders Orders - RICARDO ROE RESIDENT Procedure Category Date Status Time Admit ADMIT 05/03/25 Transmitted 21:40 Code Status CODE 05/03/25 Transmitted 21:40 Sodium Chloride Lock PHA 05/03/25 Logged (Saline Lock Ns) 22:00 Complete Blood Count LAB 05/04/25 Verified 04:00 Comprehensive LAB 05/04/25 Verified Metabolic Panel 04:00 Cardiac DIET 05/04/25 Transmitted Diet-2gna,Lofat,Lochol Breakfast Notify Of Changes EVON 05/03/25 In Process From Base 21:40 Morphine Sulfate PHA 05/03/25 Verified Injection 21:45 Morphine Sulfate PHA 05/03/25 Verified Injection 21:45 Pantoprazole Tablet PHA 05/03/25 Verified (Protonix Tablet) 21:45 Pantoprazole Tablet PHA 05/04/25 Verified (Protonix Tablet) 06:00 Date of Service: May 03, 2025 Billing Provider: TELMA HARDEN MD Common Visit Codes: 66274-HCRZGMP INP/OBS CARE (HIGH) Secondary Visit Codes: 48192-BAOVJNLX CARE PLAN 30 MINUTES RICARDO ROE RESIDENT May 03, 2025 21:43
[2025-05-03] MEDS ORDERED: ALPRAZolam 0.25 MG TAB PO PRN (21:45)
[2025-05-03 22:18] LABS: Albumin 4.7 g/dL (3.2-4.8); Alkaline Phosphatase 55.0 U/L (46-116); Bilirubin, Direct 0.1 mg/dL (<0.3); Magnesium 2.0 mg/dL (1.6-2.6); Total Protein 7.5 g/dL (5.7-8.2)
[2025-05-03 22:19] LABS: Alanine Aminotransferase 50.0 U/L (7-40); Bilirubin, Total 0.4 mg/dL (0.2-1.0)
[2025-05-03 22:52] VITALS: PULSE 78; RESP 13; O2SAT 98
[2025-05-03] MEDS: GABAPENTIN 300 MG CAP PO SCH (23:16)
[2025-05-03] MEDS: diphenhdrAMINE HCL 25 MG CAP PO ONE (23:16)
[2025-05-03] MEDS: PANTOPRAZOLE 40 MG TAB PO ONE (23:16)
[2025-05-03] MEDS: ACETAMINOPHEN 500 MG TAB or CAP PO ONE (23:17)
[2025-05-03] MEDS: SODIUM CHLOR 0.9% PF (SALINE LOCK) 10ML VIAL/SYR IV SCH (23:17)
[2025-05-04] VITALS (12 sets, daily range): BP systolic 108–133; BP diastolic 36–99; PULSE 68–74; RESP 12–18; TEMP 96.6–98.8; O2SAT 96–99
[2025-05-04] MEDS: MORPHINE SULFATE INJ 2 MG/ml SYRG IV ONE (00:50)
--- NOTE | 2025-05-04 01:27 | DVH ---
INDICATION: Back pain COMPARISON: None TECHNIQUE: 2 views of the lumbar spine were obtained. FINDINGS: The lumbar vertebral alignment is normal. Moderate L5-S1 disc height loss with adjacent endplate sclerosis and multifocal anterior osteophytosi s throughout the lumbar spine. The intervertebral disc spaces are otherwise well-maintained. No signi ficant facet arthropathy is noted. No acute fracture, vertebral compression deformity or aggressive osseous lesions. The paravertebral soft tissues are grossly unremarkable. Atherosclerotic vascular calcifications. IMPRESSION: 1. No acute fracture. 2. Degenerative changes of the lumbar spine.
[2025-05-04] MEDS: MORPHINE SULFATE INJ 2 MG/ml SYRG IV PRN (05:03)
[2025-05-04] MEDS: PANTOPRAZOLE 40 MG TAB PO SCH (05:40)
[2025-05-04 09:14] LABS: Hematocrit 28.2 % (36.0-46.0); Hemoglobin 9.6 g/dL (12.2-16.2); Mean Corpuscular Hemoglobin 30.7 pg (28.0-32.0); Mean Corpuscular Volume 89.9 fL (80.0-100.0); Nucleated Red Blood Cells % 0.4 %
[2025-05-04 09:24] LABS: Alkaline Phosphatase 55 U/L (46-116)
[2025-05-04 09:25] LABS: Albumin 4.4 g/dL (3.2-4.8); Anion Gap 5 (5-15); BUN/Creatinine Ratio 25.6 (10.0-20.0); Bilirubin, Total 1.1 mg/dL (0.2-1.0); Blood Urea Nitrogen 20 mg/dL (9-23); Calcium 9.7 mg/dL (8.7-10.4); Carbon Dioxide 26 mmol/L (20-31); Potassium 4.2 mmol/L (3.5-5.1); Sodium 140 mmol/L (136-145); Total Protein 7.0 g/dL (5.7-8.2)
[2025-05-04 09:30] LABS: Alanine Aminotransferase 45 U/L (7-40); Chloride 109 mmol/L (98-107); Glucose 182 mg/dL (74-106)
[2025-05-04 09:42] LABS: Urine Budding Yeast OCCASIONAL /hpf (None Seen); Urine Protein, UAD Negative (Negative)
--- NOTE | 2025-05-04 09:54 | ECG ---
[facility] Test Date: 2025-05-03 Test Time: 18:39:28 Pat Name: JUDY SCHULTZ Department: ed Room: [address] [place] [address] Gender: F Conventions Assistant: briana : 1960 Requested By: LUDMILA ISSA Order Number: [id number] Reading MD: Measurements Intervals [place] Rate: 83 P: 48 DE: 158 QRS: 29 QRSD: 94 T: 49 QT: 397 QTc: 467 Interpretive Statements Sinus rhythm Low voltage, precordial leads Please click the below link to view image of tracing.
[2025-05-04] MEDS: LISINOPRIL 20 MG TAB PO SCH (09:58)
[2025-05-04] MEDS: EMPAGLIFLOZIN 10 MG TAB PO SCH (09:58)
[2025-05-04] MEDS: ATORVASTATIN 20 MG TAB PO SCH (09:58)
[2025-05-04] MEDS: METOPROLOL SUCCINATE XL 50 MG TAB PO SCH (09:59)
[2025-05-04] MEDS: CITALOPRAM HYDROBR 20 MG TAB PO SCH (09:59)
== END 2025-05-04 14:18 | disposition home or self-care (01) | DRG 812 ==
LOC: ER 18:08 → OVERFLOW 21:40 → EAST 05-04 06:15
PROVIDERS: ADMIT Hospitalist; ATTEND Hospitalist
PROC: 30233N1 Transfusion of Nonautologous Red Blood Cells into Peripheral Vein, Percutaneous Approach (ICD-10-PCS; principal; 2025-05-04)
DX: D46.9 Myelodysplastic syndrome, unspecified (principal); D61.818 Other pancytopenia; I50.32 Chronic diastolic (congestive) heart failure; I27.20 Pulmonary hypertension, unspecified; I11.0 Hypertensive heart disease with heart failure; F32.A Depression, unspecified; E11.9 Type 2 diabetes mellitus without complications; E78.5 Hyperlipidemia, unspecified; F41.9 Anxiety disorder, unspecified; M79.18 Myalgia, other site; Z86.73 Personal history of transient ischemic attack (TIA), and cerebral infarction without residual deficits; Z79.899 Other long term (current) drug therapy; Z79.84 Long term (current) use of oral hypoglycemic drugs
CPT/HCPCS: 36415; 71045; 72100; 80048; 80053; 80076; 81001; 82306; 82607; 82746; 83036; 83735; 83880; 84484; 85025; 86850; 86900; 86901; 86902; 86922; 93005; G0378; J1642

== ENCOUNTER 2025-08-31 18:11 | Inpatient (IN) | payer MEDICARE, MEDICAID ==
[2025-08-30] MEDS: ONDANSETRON HCL 4 MG/2 ML VIAL IV ONE (23:45)
[~2025-08-31] VITALS: Ht 157.5 cm; Wt 94.3 kg
--- NOTE | 2025-08-31 19:05 | ED.PDOC ---
History of Present Illness HPI Comments Ms. Smith is a 65-year-old female with prior medical history of myelodysplastic syndrome, type 2 diabetes mellitus, stroke in 2015 with residual right-sided deficits, and hyperlipidemia, who presents today with chief complaint of generalized weakness. The patient refers that yesterday she had onset of vomiting and awoke today with generalized weakness, double vision, nausea, increased urinary frequency, and darkened urine described as Coca-[employer]a like. She denies fever, diarrhea, bloody vomitus, bloody stool, dysuria, chest pain, abdominal pain, back pain, shortness of breath, cough, nasal discharge, nasal congestion, recent exposure to sick contacts or potentially contaminated food. The patient states she is currently not receiving any treatment for her MDS, and the last time she presented the symptoms she required a blood transfusion. On initial evaluation, the patient is pale, seems weak, afebrile, hypotensive with BP of 91/49 mmHg, saturating adequately on RA. Chief Complaint: Urinary Time Seen by MD: 18:45 Primary Care Provider: UNKNOWN Allergies: Coded Allergies: NO KNOWN ALLERGIES (Unverified , 06/15/23) Home Meds Active Scripts Gabapentin (Gabapentin) 300 Mg Cap, 1 CAP PO TID, #90 CAP 5 Refills Prov:JAYDA SAMANIEGO MD 06/13/24 Alprazolam (Xanax) 0.25 Mg Tb, 1 TAB PO DAILY PRN for 30 Days, #30 TAB Prov:HORACIO HENAO MD 01/07/24 Reported Medications Trazodone Hcl (Trazodone Hcl) 100 Mg Tab, 100 MG PO, MG 01/04/24 Lisinopril (Lisinopril) 40 Mg Tab, 40 MG PO DAILY for 30 Days, MG 01/04/24 Metoprolol Succinate (Metoprolol Succinate Er) 25 Mg Tab, 1 TAB PO DAILY 08/01/23 Nifedipine (Nifedipine Er) 30 Mg Tab, 1 TAB PO DAILY 08/01/23 Atorvastatin Calcium (ATORVASTATIN CALCIUM) 10 Mg Tab, 1 TAB PO DAILY 08/01/23 Metformin Hydrochloride (Metformin Hcl) 500 Mg Tab, 1 TAB PO TID 08/01/23 Empagliflozin (Jardiance) 10 Mg Tab, 1 TAB PO DAILY 08/01/23 Citalopram Hydrobromide (Celexa) 10 Mg Tab, 1 TAB PO DAILY, #30 TAB 2 Refills 06/29/23 Gabapentin (Gabapentin) 600 Mg Tab, 1200 MG PO DAILY for 30 Days, MG 06/29/23 Information Source: Patient Mode of Arrival: Wheelchair Severity: Severe Timing: Days Duration: Since onset Past Medical History PAST MEDICAL HISTORY: Anemia, Cancer, CHF, CVA, Depression, DM, High Lipids, HTN Surgical History: Appendectomy, BTL CAMP MANAGER History: Denies all CAMP MANAGER Hx Family History Family History: Reviewed,noncontributory to illness, Family hx of DM, Family hx of heart christine Social History Smoker: Non-Smoker Alcohol: Denies ETOH Use Drugs: Denies Drug Use Lives In: Home Constitutional: reports: weakness; denies: chills, diaphoresis, fatigue, fever, malaise, sweats EENTM: reports: blurred vision; denies: hearing loss, nasal discharge, nose bleeding, nose congestion, nose pain, throat pain Respiratory: denies: cough, hemoptysis, orthopnea, shortness of breath Cardiovascular: denies: chest pain, dizzy spells, diaphoresis, Dyspnea on exertion, edema, irregular heart beat, left arm pain, lightheadedness, palpitations Gastrointestinal: reports: nausea, vomiting; denies: abdomen distended, abdominal pain, blood streaked bowels, constipated, diarrhea, hematemesis, melena, poor appetite, poor fluid intake, rectal bleeding Genitourinary: reports: frequency, others (Darkened urine ); denies: burning, dysuria, flank pain, hematuria, incontinence, pain, urgency Neurological: reports: pre-existing deficit, right sided weakness; denies: dizziness, fainting, headache, left sided numbness, left sided weakness, numbness, paresthesia, right sided numbness, seizure, tremors, weakness Musculoskeletal: denies: back pain, joint pain, joint swelling, muscle pain, muscle stiffness, neck pain Integumetry: denies: bruises, laceration, lesions, lumps, rash, wounds Physical Exam General Appearance: Moderate Distress, Obese HEENT: Other (Normocephalic, atraumatic, normoreactive pupils, EOM intact, pale conjunctiva, pale dry mucous membrane) Neck: Full Range of Motion, Non-Tender, Normal Inspection Respiratory: Chest Non-Tender, Lungs Clear, No Accessory Muscle Use, No Respiratory Distress, Normal Breath Sounds, Other (Presence of port in right pectoral region ) Cardiovascular: No Edema, No Murmur, Normal Peripheral Pulses Breast Exam: Deferred Gastrointestinal: Other (Abdomen nondistended, normoactive bowel sounds, soft, non-painful on palpation, no CVA tenderness) Genitalia: Deferred Pelvic: Deferred Rectal: Deferred Extremities: Other (No deformities, multiple hypochromic linear scars are noted on bilateral forearms due to previous history of self harm, there is no per ipheral edema present at the lower extremities, strength is 2/5 in both right upper and lower extremity secondary previous CVA ) Neurologic: Other (Patient is alert, AOx4, in moderate distress, strength is 2/5 in right upper and lower extremity, sensation is intact, strength and sensation are intact in left extremities) Cerebellar Function: NOT DONE Reflexes: NOT DONE Skin: Pallor Peripheral Pulses: 2+ dorsalis pedis (R), 2+ dorsalis pedis (L) Lymphatic: Other (No cervical adenopathy ) Was a procedure done? Was a procedure done?: No Differential Dx Considerations may include: Sepsis, cystitis, pyleonephritis, symptomatic anemia, X-Ray, Labs, Meds, VS Vital Signs Date Time Temp Pulse Resp B/P (MAP) Pulse Ox O2 Delivery O2 Flow Rate FiO2 08/31/25 20:00 69 08/31/25 18:15 98.3 73 16 91/49 98 98.3 Lab Test 08/31/25 20:01 08/31/25 19:39 Range/Units Urine Color Pending Urine Clarity Pending Urine pH Pending Urine Specific [place] Pending Urine Protein Pending Urine Ketones Pending Urine Blood Pending Urine Nitrite Pending Urine Bilirubin Pending Urine Urobilinogen Pending Urine Leukocyte Esterase Pending Urine RBC Pending Urine Microscopic WBC Pending Urine Squamous Epithelial Cells Pending Urine Bacteria Pending Urine Glucose Pending White Blood Count 2.3 L 4.4-10.8 10^3/uL Red Blood Count 2.21 L 4.0-5.20 10^6/uL Hemoglobin 7.3 L 12.2-16.2 g/dL Hematocrit 21.1 L 36.0-46.0 % Mean Corpuscular Volume 95.4 80.0-100.0 fL Mean Corpuscular Hemoglobin 33.0 H 28.0-32.0 pg Mean Corpuscular Hemoglobin Concent 34.6 32.0-36.0 g/dL Red Cell Distribution Width 21.9 H 11.8-14.3 % Platelet Count 107 L 140-450 10^3/uL Mean Platelet Volume 9.2 6.9-10.8 fL Neutrophils (%) (Auto) 46.5 37.0-80.0 % Lymphocytes (%) (Auto) 43.1 10.0-50.0 % Monocytes (%) (Auto) 9.8 0.0-12.0 % Eosinophils (%) (Auto) 0.1 0.0-7.0 % Basophils (%) (Auto) 0.5 0.0-2.0 % Neutrophils # (Auto) 1.1 L 1.6-8.6 10 ^3/uL Lymphocytes # (Auto) 1.0 0.4-5.4 10 ^3/uL Monocytes # (Auto) 0.2 0-1.3 10 ^3/uL Eosinophils # (Auto) 0 0-0.8 10 ^3/uL Basophils # (Auto) 0 0-0.2 10 ^3/uL Nucleated Red Blood Cells 0.1 % Sodium Level 145 136-145 mmol/L Potassium Level 3.8 3.5-5.1 mmol/L Chloride Level 106 98-107 mmol/L Carbon Dioxide Level 25 20-31 mmol/L Anion Gap 14 5-15 Blood Urea Nitrogen 16 9-23 mg/dL Creatinine 1.28 H 0.550-1.02 mg/dL Glomerular Filtration Rate Calc 46 >90 mL/min BUN/Creatinine Ratio 12.5 10.0-20.0 Serum Glucose 206 H 74-106 mg/dL Lactic Acid Level 2.3 *H 0.4-2.0 mmol/L Calcium Level 8.9 8.7-10.4 mg/dL Magnesium Level 2.1 1.6-2.6 mg/dL Total Bilirubin 0.3 0.2-1.0 mg/dL Aspartate Amino Transferase (AST) 57 H 13-40 U/L Alanine Aminotransferase (ALT) 106 H 7-40 U/L Alkaline Phosphatase 57 46-116 U/L Troponin I High Sensitivity 3 L </=34 ng/L Total Protein 7.1 5.7-8.2 g/dL Albumin 4.2 3.2-4.8 g/dL Time of 1ST Reevaluation: 19:57 Reevaluation 1ST: Unchanged Patient Education/Counseling: Diagnosis, Treatment Family Education/Counseling: Diagnosis, Treatment Comments Ms. Smith presents today with chief complaint of generalized weakness On initial evaluation the patient is pale, weak, hypotensive, afebrile, other vi tals are within normal range Physical exam is significant for generalized pallor, pale conjunctiva, pale and dry mucous membranes, and presence of right-sided weakness which is residual from previous CVA in 2014 The patient was started on IV fluids due to hypotension Chest xray shows no cardiopulmonary disease CBC shows signs of pancytopenia, hemoglobin is currently 7.3 Due to symptomatic anemia and hypotension, it is considered that the patient is not stable for discharge home and requires admission for blood transfusion and fluid resuscitation SEPSIS Sepsis Screen Date sepsis recognized/suspect: Aug 31, 2025 Time Sepsis recognized/suspect: 1817 Recent Procedure: No On Antibiotic Therapy: No Respiratory Rate >20: No Heart Rate >90: No Temp<36 C (96.8 F) or >38.3 C: No SBP <90 or MAP <65 mmHG: No New Acute Mental Status Change: Yes Is the patient on CPAP, BIPAP,: No Physician Orders Fleet Manager (08/31/25 ) Urinalysis (08/31/25 18:53) Type And Screen (08/31/25 18:54) Chest Portable (08/31/25 18:55) Electrocardigram (08/31/25 18:55) Vital Signs Date Time Temp Pulse Resp B/P (MAP) Pulse Ox O2 Delivery O2 Flow Rate FiO2 08/31/25 20:00 69 08/31/25 18:15 98.3 73 16 91/49 98 98.3 Laboratory Tests Test 08/31/25 19:39 Lactic Acid Level 2.3 mmol/L (0.4-2.0) *H White Blood Count 2.3 10^3/uL (4.4-10.8) L Departure 1 Departure Time of Disposition: 19:58 Impression: Primary Impression: Symptomatic anemia Additional Impressions: Pancytopenia Dehydration Generalized weakness Disposition: 09 ADMITTED INPATIENT Admit to: Tele Condition: Guarded Discharged With: Self Critical Care Note Critical Care Time?: No Stability Stability form required: IMANI Rasheed RESIDENT Aug 31, 2025 19:05 AMADA KIDD DO Aug 31, 2025 20:17
--- NOTE | 2025-08-31 19:30 | DVH ---
CHEST RADIOGRAPH Indication: weak Technique: Single frontal view of the chest was obtained Comparison: XY CHEST XRAY 1 VIEW on DOS: 05/03/25, XY CHEST PORTABLE on DOS: 04/20/25, XR CHEST 1 VIEW on DOS: 03/13/25 FINDINGS: Lines and Tubes: Right IJ approach port-A-Cath terminating over the distal SVC. Lungs: No focal consolidation. Pleura: No effusion. No pneumothorax. Cardiomediastinal contours: Unremarkable Bones: No acute osseous abnormality. IMPRESSION: No acute cardiopulmonary disease.
[2025-08-31 19:48] LABS: Hemoglobin 7.3 g/dL (12.2-16.2); Nucleated Red Blood Cells % 0.1 %
[2025-08-31 19:50] LABS: Hematocrit 21.1 % (36.0-46.0); Mean Corpuscular Hemoglobin 33.0 pg (28.0-32.0); Mean Corpuscular Volume 95.4 fL (80.0-100.0)
[2025-08-31] MEDS: SODIUM CHLORIDE 0.9% 1,000 ML IV ONE ×2 (20:00→23:45)
[2025-08-31 20:07] LABS: Albumin 4.2 g/dL (3.2-4.8); Alkaline Phosphatase 57 U/L (46-116); Anion Gap 14 (5-15); BUN/Creatinine Ratio 12.5 (10.0-20.0); Blood Urea Nitrogen 16 mg/dL (9-23); Calcium 8.9 mg/dL (8.7-10.4); Carbon Dioxide 25 mmol/L (20-31); Chloride 106 mmol/L (98-107); Potassium 3.8 mmol/L (3.5-5.1); Sodium 145 mmol/L (136-145); Total Protein 7.1 g/dL (5.7-8.2)
[2025-08-31 20:08] LABS: Bilirubin, Total 0.3 mg/dL (0.2-1.0)
[2025-08-31 20:12] LABS: Alanine Aminotransferase 106 U/L (7-40); Glucose 206 mg/dL (74-106)
[2025-08-31 20:13] LABS: Lactic Acid w/Reflex 2.3 mmol/L (0.4-2.0)
[2025-08-31 20:27] LABS: Urine Protein, UAD Negative (Negative)
[2025-08-31] MEDS: MORPHINE SULFATE INJ 2 MG/ml SYRG IV PRN (21:57)
[2025-08-31 22:07] LABS: Cholesterol 213 mg/dL (< 200); HDL Cholesterol 47 mg/dL (40-59); Triglycerides 302 mg/dL (< 150)
[2025-08-31 22:48] LABS: Hematocrit 19.3 % (36.0-46.0)
[2025-08-31 22:50] LABS: Hemoglobin 6.7 g/dL (12.2-16.2)
--- NOTE | 2025-08-31 23:53 | DVHHPRES ---
History of Present Illness Resident Creating Document: KATHLEEN HUFF History of Present Illness This is a 65-year-old female with past medical history of myelodysplastic syndrome diagnosed by bone marrow biopsy at [facility] two years ago, type 2 diabetes mellitus, hyperlipidemia, hypertension, ischemic stroke in 2015 with minimal right-sided residual neurologic deficits, who presented to the ED with chief complaint of generalized weakness associated with nausea and vomiting. Patient reports that she has been feeling fatigued and weak since two days back associated with nausea, vomiting, double vision and increased urinary frequency with dark colored urine. Patient reports that she has been seen by oncologist at [facility] for her myelodysplastic syndrome. Patient stated that two years ago when she was diagnosed at [facility] she started chemotherapy for five months but then they recommended to stop because treatment was not working. At [facility] they recommended bone marrow transplant for which she has been trying to get. They also recommend to transfuse RBCs for any hemoglobin less than eight due to possible rapid decline. Patient got a recent bone marrow biopsy at [facility] last week. We will start the patient on IV fluids at low rate, one pack of red blood cells since hemoglobin is 7.3 and patient is symptomatic. Upon admission, CBC showed pancytopenia with a WBC of 2.3, hemoglobin 7.3 and platelets 107. CMP showed possible MARISOL with creatinine of 1.28 hyperglycemia and slight transaminitis. Upon my examination patient denies chest pain, shortness of breath, abdominal pain or any other associated symptoms. The patient does reports generalized body aches, fatigue and weakness. We will admit the patient for further assessment and management. Home medications: Alprazolam 0.25 mg daily, atorvastatin 10 mg daily, citalopram 10 mg daily, empagliflozin 10 mg daily, gabapentin 600 mg b.i.d., lisinopril 40 mg daily, nifedipine 30 mg daily, trazodone 100 mg daily Surgical history: Appendectomy and bilateral tubal ligation Social history denies alcohol intake, drug consumption or smoking Cardiovascular: HTN, hyperipidemia GI: Constipation Heme/Onc: Anemia NOS Psych: Anxiety, Depression Endocrine: Diabetes Past Surgical History: Appendectomy, Tubal Ligation Family History: None Smoke: No ALCOHOL: none Lives: with Family Domestic Violence: Neg Review of Systems Constitutional: Yes: Weakness, Malaise; No: Fever, Chills, Sweats, Other Eyes: No: Pain, Vision change, Conjunctivae inflammation, Eyelid inflammation, Other, Redness ENT: No: Ear pain, Ear discharge, Nose pain, Nose discharge, Nose congestion, Mouth pain, Mouth swelling, Throat pain, Throat swelling, Other Respiratory: No: Cough, Dry, Shortness of breath, SOB with excertion, Wheezing, Hemoptysis, Pleuritic Pain, Sputum, Wheezing, Other Cardiovascular: No: Chest Pain, Palpitations, Orthopnea, Paroxysmal Noc. Dyspnea, Edema, Lt Headedness, Other Gastrointestinal: Nausea, Vomiting; No: Abdominal Pain, Diarrhea, Constipation, Melena, Hematochezia, Other Genitourinary: No Dysuria, No Frequency, No Incontinence, No Hematuria, No Retention, No Other Musculoskeletal: No: other, neck pain, shoulder pain, arm pain, back pain, hand pain, leg pain, foot pain Skin: No: Rash, Lesions, Jaundice, Bruising, Other Neurological: Weakness; No: Numbness, Incoordination, Change in speech, Confusion, Seizures, Other Allergies: Coded Allergies: NO KNOWN ALLERGIES (Unverified , 06/15/23) Medications Current Medications Medications Dose Ordered Sig/Jud Route Start Time Stop Time Status Last Admin Dose Admin Acetaminophen 650 mg Q6HP PRN PO 08/31/25 21:30 Morphine Sulfate 1 mg Q6HP PRN IV 08/31/25 21:45 Lactulose 30 ml BID PO 08/31/25 22:00 Exam Vital Signs Vital Signs Date Time Temp Pulse Resp B/P (MAP) Pulse Ox O2 Delivery O2 Flow Rate FiO2 08/31/25 20:00 69 08/31/25 18:15 98.3 16 91/49 98 98.3 General Appearance: Alert, Oriented X3, Cooperative, mild distress HEENT: Atraumatic, PERRLA, EOMI, Mucous membr. moist/pink Respiratory: Clear to auscultation, Normal air movement Cardiovascular: Regular rate, Normal S1, Normal S2, No murmurs Abdominal: Normal bowel sounds, Soft, No tenderness, No hepatospenomegaly, No masses Extremities: No clubbing, No cyanosis, No edema, Normal pulses, No tenderness/swelling Skin: No rashes, No breakdown, No significant lesion Neuro: Normal gait, Normal speech, Strength at 5/5 X4 ext, Normal tone, Sensation intact, Cranial nerves 3-12 NL, Reflexes 2+ Psych/Mental Status: Mental status NL, Mood NL Labs/Xrays Labs Test 08/31/25 22:25 08/31/25 21:27 08/31/25 20:01 08/31/25 19:39 Range/Units Hemoglobin 6.7 *L 12.2-16.2 g/dL Hematocrit 19.3 L 36.0-46.0 % Lactic Acid Level 1.1 0.4-2.0 mmol/L Urine Color Light-yellow Yellow Urine Clarity Clear Clear Urine pH 7.0 5.0-9.0 Urine Specific [place] 1.030 1.001-1.035 Urine Protein Negative Negative Urine Ketones 1+ H Negative Urine Blood Negative Negative /uL Urine Nitrite Negative Negative Urine Bilirubin Negative Negative Urine Urobilinogen 2 H Negative mg/dL Urine Leukocyte Esterase Negative Negative /uL Urine RBC <1 0 - 4 /hpf Urine Microscopic WBC 1 0-5 /HPF Urine Squamous Epithelial Cells Few <5 /hpf Urine Bacteria None seen None Seen /hpf Urine Glucose 4+ H Normal mg/dL White Blood Count 2.3 L 4.4-10.8 10^3/uL Red Blood Count 2.21 L 4.0-5.20 10^6/uL Mean Corpuscular Volume 95.4 80.0-100.0 fL Mean Corpuscular Hemoglobin 33.0 H 28.0-32.0 pg Mean Corpuscular Hemoglobin Concent 34.6 32.0-36.0 g/dL Red Cell Distribution Width 21.9 H 11.8-14.3 % Platelet Count 107 L 140-450 10^3/uL Mean Platelet Volume 9.2 6.9-10.8 fL Neutrophils (%) (Auto) 46.5 37.0-80.0 % Lymphocytes (%) (Auto) 43.1 10.0-50.0 % Monocytes (%) (Auto) 9.8 0.0-12.0 % Eosinophils (%) (Auto) 0.1 0.0-7.0 % Basophils (%) (Auto) 0.5 0.0-2.0 % Neutrophils # (Auto) 1.1 L 1.6-8.6 10 ^3/uL Lymphocytes # (Auto) 1.0 0.4-5.4 10 ^3/uL Monocytes # (Auto) 0.2 0-1.3 10 ^3/uL Eosinophils # (Auto) 0 0-0.8 10 ^3/uL Basophils # (Auto) 0 0-0.2 10 ^3/uL Nucleated Red Blood Cells 0.1 % Sodium Level 145 136-145 mmol/L Potassium Level 3.8 3.5-5.1 mmol/L Chloride Level 106 98-107 mmol/L Carbon Dioxide Level 25 20-31 mmol/L Anion Gap 14 5-15 Blood Urea Nitrogen 16 9-23 mg/dL Creatinine 1.28 H 0.550-1.02 mg/dL Glomerular Filtration Rate Calc 46 >90 mL/min BUN/Creatinine Ratio 12.5 10.0-20.0 Serum Glucose 206 H 74-106 mg/dL Hemoglobin A1c 8.4 H <5.7 % A1C Calcium Level 8.9 8.7-10.4 mg/dL Magnesium Level 2.1 1.6-2.6 mg/dL Total Bilirubin 0.3 0.2-1.0 mg/dL Aspartate Amino Transferase (AST) 57 H 13-40 U/L Alanine Aminotransferase (ALT) 106 H 7-40 U/L Alkaline Phosphatase 57 46-116 U/L Troponin I High Sensitivity 3 L </=34 ng/L B-Type Natriuretic Peptide 152.68 0-100 pg/mL Total Protein 7.1 5.7-8.2 g/dL Albumin 4.2 3.2-4.8 g/dL Triglycerides Level 302 H < 150 mg/dL Cholesterol Level 213 H < 200 mg/dL LDL Cholesterol 120 H < 100 mg/dL HDL Cholesterol 47 40-59 mg/dL SEPSIS Sepsis Screen Date sepsis recognized/suspect: Aug 31, 2025 Time Sepsis recognized/suspect: 1817 Recent Procedure: No On Antibiotic Therapy: No Respiratory Rate >20: No Heart Rate >90: No Temp<36 C (96.8 F) or >38.3 C: No SBP <90 or MAP <65 mmHG: No New Acute Mental Status Change: Yes Is the patient on CPAP, BIPAP,: No Physician Orders Gamma Operator (08/31/25 ) Type And Screen (08/31/25 18:54) Chest Portable (08/31/25 18:55) Electrocardigram (08/31/25 18:55) Admit (08/31/25 21:30) Code Status (08/31/25 21:30) Vital Signs .PER UNIT PROTOCOL (08/31/25 21:30) Review Orders With Adm. (08/31/25 21:30) [facility]Diabetes (09/01/25 Breakfast) Acetaminophen Tablet (Tylenol Tablet) (08/31/25 21:30) Notify Md Of Changes From Base (08/31/25 21:30) Advance Directive (08/31/25 21:30) Basic Metabolic Panel (09/01/25 04:00) Urinalysis (08/31/25:30) Complete Blood Count (09/01/25 04:00) Patient Condition (08/31/25 21:30) Allergies (08/31/25:) Drug Screen (08/31/25:) Packedcell-Noactive Bleeding (08/31/25 21:35) Morphine Sulfate Injection (08/31/25 21:45) Sodium Chloride 0.9% (08/31/25 21:45) Lactulose Oral (08/31/25 22:00) Covid19 Antigen Nicky (08/31/25 ) Rapid Influenza A&B (08/31/25 21:39) Vital Signs Date Time Temp Pulse Resp B/P (MAP) Pulse Ox O2 Delivery O2 Flow Rate FiO2 08/31/25 20:00 69 08/31/25 18:15 98.3 73 16 91/49 98 98.3 Laboratory Tests Test 08/31/25 19:39 08/31/25 21:27 Lactic Acid Level 2.3 mmol/L (0.4-2.0) *H 1.1 mmol/L (0.4-2.0) White Blood Count 2.3 10^3/uL (4.4-10.8) L Medications Medications Dose Ordered Sig/Jud Route Start Time Stop Time Status Last Admin Dose Admin Sodium Chloride 1,000 ml @ 1,000 mls/hr Q1H ONCE IV 08/31/25 19:00 08/31/25 19:59 DC 08/31/25 20:00 1,000 MLS/HR Assessment/Plan Assessment/Plan Assessment/plan Acute generalized weakness likely due to acute normocytic hypochromic anemia in the setting of myelodysplastic syndrome Acute pancytopenia due to myelodysplastic syndrome Acute on chronic normocytic hypochromic anemia due to above Possible viral gastroenteritis Acute dehydration MARISOL likely due to vasomotor nephropathy Acute transaminitis Type 2 diabetes mellitus with hyperglycemia and diabetic polyneuropathy Hypertensive heart disease with diastolic/systolic dysfunction Hyperlipidemia History of ischemic stroke with minimal right-sided neurologic deficits Plan -chest x-ray was grossly unremarkable without evidence of clear consolidations -hemoglobin was 7.3, repeated hemoglobin was 6.7 -blood type and screen, 1 unit of packed red blood cells transfusion -monitor and repeat hemoglobin and hematocrit closely -IV fluids NS 0.9% at 75 cc/hour -ordered BNP, troponins were negative -ordered COVID and influenza test -morphine 1 g q.6 PRN for pain modulation -lactulose 30 b.i.d. for acute constipation -ordered iron panel, ferritin -mild sliding scale insulin, monitor blood glucose closely -restart home medications, citalopram 10 mg daily, alprazolam 0.25 mg daily at bedtime. For anxiety/depression -lisinopril 40 mg daily and nifedipine 30 mg daily -restart gabapentin 600 mg b.i.d. -start atorvastatin 40 mg daily -follow-up with oncologist ([facility] for bone marrow transplant) Goals of care discussed with the patient and son at bedside, full code Plan discussed with Dr. Barfield Plan discussed with: Patient, Son My Orders Orders - KATHLEEN HUFF Procedure Category Date Status Time Admit ADMIT 08/31/25 Transmitted 21:30 Code Status CODE 08/31/25 Transmitted 21:30 Vital Signs EVON 08/31/25 In Process 21:30 Review Orders With EVON 08/31/25 In Process Adm. 21:30 Consistent DIET 09/01/25 Transmitted Carb(Ccho)Diabetes Breakfast Acetaminophen Tablet PHA 08/31/25 In Process (Tylenol Tablet) 21:30 Notify Of Changes EVON 08/31/25 In Process From Base 21:30 Advance Directive EVON 08/31/25 In Process 21:30 Basic Metabolic Panel LAB 09/01/25 Verified 04:00 Urinalysis LAB 08/31/25 Logged 21:30 Complete Blood Count LAB 09/01/25 Verified 04:00 Patient Condition ORDERS 08/31/25 Transmitted 21:30 Allergies EVON 08/31/25 In Process 21:30 Drug Screen LAB 08/31/25 Logged 21:30 Packedcell-Noactive BBK 08/31/25 Logged Bleeding 21:35 Morphine Sulfate PHA 08/31/25 In Process Injection 21:45 Sodium Chloride 0.9% PHA 08/31/25 In Process 21:45 Lactulose Oral PHA 08/31/25 In Process 22:00 Covid19 Antigen Nicky LAB 08/31/25 Logged Rapid Influenza A&B LAB 08/31/25 Logged 21:39 Date of Service: Aug 31, 2025 Billing Provider: TELMA BARFIELD MD Common Visit Codes: [id number] INP/OBS CARE (HIGH) Secondary Visit Codes: [id number] CARE PLAN 30 MINUTES KATHLEEN HUFF RESIDENT Aug 31, 2025 23:53
[2025-09-01] VITALS (9 sets, daily range): BP systolic 92–149; BP diastolic 46–72; PULSE 60–76; RESP 11–19; TEMP 97.7–98.3; O2SAT 95–100
[2025-09-01] MEDS ORDERED: SODIUM CHLORIDE 0.9% 250 ML IV ONE (01:00)
[2025-09-01] MEDS: LACTULOSE 20Gm/30ML SOLN PO SCH (03:12)
[2025-09-01] MEDS: ALPRAZolam 0.25 MG TAB PO SCH (03:12)
[2025-09-01 04:47] LABS: COVID19 ANTIGEN SOFIA FIA NEGATIVE (NEGATIVE)
[2025-09-01] MEDS: SODIUM CHLORIDE 0.9% 1,000 ML IV SCH (05:49)
[2025-09-01 06:18] LABS: Hematocrit 23.2 % (36.0-46.0); Hemoglobin 7.9 g/dL (12.2-16.2); Mean Corpuscular Hemoglobin 31.1 pg (28.0-32.0); Mean Corpuscular Volume 91.6 fL (80.0-100.0); Nucleated Red Blood Cells % 0.1 %
[2025-09-01 06:29] LABS: Sodium 144 mmol/L (136-145)
[2025-09-01 06:30] LABS: Anion Gap 12 (5-15); Carbon Dioxide 24 mmol/L (20-31)
[2025-09-01 06:35] LABS: BUN/Creatinine Ratio 10.1 (10.0-20.0); Blood Urea Nitrogen 11 mg/dL (9-23)
[2025-09-01 06:36] LABS: Calcium 8.7 mg/dL (8.7-10.4); Chloride 108 mmol/L (98-107); Glucose 142 mg/dL (74-106); Potassium 3.4 mmol/L (3.5-5.1)
[2025-09-01] MEDS ORDERED: DEXTROSE (50%) 50ML SYRG IV PRN (07:15)
[2025-09-01] MEDS: CITALOPRAM HYDROBR 20 MG TAB PO SCH (09:56)
[2025-09-01] MEDS: POTASSIUM EFFERVESENT TAB 25 MEQ PO ONE (09:56)
[2025-09-01] MEDS: GABAPENTIN 300 MG CAP PO SCH (09:56)
[2025-09-01] MEDS: LISINOPRIL 20 MG TAB PO SCH (09:57)
[2025-09-01] MEDS: INSULIN LANTUS (GLARGINE) 1 /0.01ml (100units/ml) SC SCH (09:57)
[2025-09-01] MEDS: ONDANSETRON HCL 4 MG/2 ML VIAL ONE (10:10)
[2025-09-01 10:27] LABS: Iron 220.0 ug/dL (50-170)
[2025-09-01 10:30] LABS: Total Iron Binding Capacity 226.0 ug/dL (250-425)
[2025-09-01] MEDS: ONDANSETRON HCL 4 MG/2 ML VIAL IV PRN (10:42)
[2025-09-01] MEDS: ACCU-CHEK COMFORT CURVE STRIP VI SCH (11:26)
[2025-09-01] MEDS ORDERED: SEMA2INJ3 (11:34)
[2025-09-01] MEDS ORDERED: MAGNSOL PO (11:34)
[2025-09-01] MEDS ORDERED: SENN-199 PO (11:34)
[2025-09-01] MEDS ORDERED: HYDR1TAB97 PO (11:34)
[2025-09-01] MEDS: InsuLIN REG 1unit/0.01ml Soln (100units/ml) SC SCH (12:03)
[2025-09-01] MEDS: CYANOCOBALAMIN (B-12) 1000 MCG/1 ML VIAL IM ONE (12:07)
[2025-09-01] MEDS: ERGOCALCIFEROL 50,000 UNIT(1.25MG) CAP PO SCH (12:07)
--- NOTE | 2025-09-01 21:10 | DVHPNRES ---
Progress Note Date Seen: Sep 01, 2025 Resident Creating Document: UDAY GOTTI RESIDENT Has the PT tested + for MRSA If YES, has PT been informed?: No Medical Necessity Reason Pt with a Central, PICC or Fol: No Subjective Review of Systems Mireille Guerrero is a 65-year-old female patient, with past medical history of myelodysplastic syndrome (2022), type 2 diabetes mellitus, hyperlipidemia, hypertension, ischemic stroke (2014). The patient came to [facility]- ED with a chief complaint of 2 days of worsening of generalized weakness and fatigue, associated with shortness of breath, nausea, vomiting, double vision and increased urinary frequency with dark colored urine. On further questioning, the patient reported that she has been seen by oncologist at [facility] for her myelodysplastic syndrome. Patient stated that two years ago when she was diagnosed at [facility] she started chemotherapy for five months but then they recommended to stop because treatment was not working; Also, they recommended bone marrow transplant. The patient was advised to receive RBC transfusion if her is less than eight due to possible rapid decline. The patient reported she had a recent bone marrow biopsy perfomed at [facility] last week. The patient denies, fever, chills, chest pain, diarrhea, melena, hemoptisis, hematochezia or other symptoms. In the ED, CBC showed pancytopenia with a WBC of 2.3, hemoglobin 7.3 and platelets 107. CMP showed possible MARISOL with creatinine of 1.28 hyperglycemia and slight transaminitis. The patient was admit the patient for further assessment and management. Past medical history: myelodysplastic syndrome diagnosed in 2022 by bone marrow biopsy at [facility]. DM2, hyperlipidemia, hypertension, ischemic CVA (2014) with minimal right-sided residual neurological deficits. Home medications: Alprazolam 0.25 mg daily, atorvastatin 10 mg daily, citalopram 10 mg daily, empagliflozin 10 mg daily, gabapentin 600 mg b.i.d., lisinopril 40 mg daily, nifedipine 30 mg daily, trazodone 100 mg daily Surgical history: Appendectomy and bilateral tubal ligation Social history denies alcohol intake, drug consumption or smoking Lives: with Family Hospital course: On 09/01/25, The patient was evaluated and examined at bedside. VS, labs and chart was reviewed. The patient reports improvement on fatigue and shortness of breath after !RBC unit, her hemoglobin levels have improved. The patient continues receiving IV antibitic Ceftriaxone. FOBT was performed to evaluate possible GI bleeding. Due to low TSH levels free T4 was ordered and TSH antibodies. We will continue providing information of this patients progress. Constitutional: Yes: Weakness, Malaise; No: Fever, Chills, Sweats, Other Eyes: No: Pain, Vision change, Conjunctivae inflammation, Eyelid inflammation, Other, Redness ENT: No: Ear pain, Ear discharge, Nose pain, Nose discharge, Nose congestion, Mouth pain, Mouth swelling, Throat pain, Throat swelling, Other Respiratory: No: Cough, Dry, Shortness of breath, SOB with excertion, Wheezing, Hemoptysis, Pleuritic Pain, Sputum, Wheezing, Other Cardiovascular: No: Chest Pain, Palpitations, Orthopnea, Paroxysmal Noc. Dyspnea, Edema, Lt Headedness, Other Gastrointestinal: Nausea, Vomiting; No: Abdominal Pain, Diarrhea, Constipation, Melena, Hematochezia, Other Genitourinary: No Dysuria, No Frequency, No Incontinence, No Hematuria, No Retention, No Other Musculoskeletal: No: other, neck pain, shoulder pain, arm pain, back pain, hand pain, leg pain, foot pain Skin: No: Rash, Lesions, Jaundice, Bruising, Other Neurological: Weakness; No: Numbness, Incoordination, Change in speech, Confusion, Seizures, Other Allergies: no known allergies. Objective vital signs Vital Sign Date Time Temp Pulse Resp B/P (MAP) Pulse Ox O2 Delivery O2 Flow Rate FiO2 09/01/25 18:44 78 14 151/69 09/01/25 17:00 98.2 96 98.2 09/01/25 11:30 Room Air* 0 21 Total Intake and Output 08/31/25 08/31/25 09/01/25 15:00 23:00 07:00 Intake Total 1500 ml Output Total 100 ml Balance 1400 ml medications Current Medications Medications Dose Ordered Sig/Jud Route Start Time Stop Time Status Last Admin Dose Admin Acetaminophen 650 mg Q6HP PRN PO 08/31/25 21:30 Morphine Sulfate 1 mg Q6HP PRN IV 08/31/25 21:45 09/01/25 17:41 1 MG Lactulose 30 ml BID PO 08/31/25 22:00 09/01/25 09:56 30 ML Citalopram Hydrobromide 10 mg DAILY PO 09/01/25 10:00 09/01/25 09:56 10 MG Alprazolam 0.25 mg DAILY PO 09/01/25 00:00 09/01/25 03:20 0.25 MG Nifedipine 30 mg DAILY PO 09/01/25 10:00 09/01/25 09:56 30 MG Lisinopril 40 mg DAILY PO 09/01/25 10:00 09/01/25 09:57 40 MG Gabapentin 600 mg BID PO 09/01/25 10:00 09/01/25 09:56 600 MG Sodium Chloride 1,000 ml @ 75 mls/hr [id number] IV 09/01/25 04:00 09/01/25 05:49 75 MLS/HR Atorvastatin Calcium 40 mg HS PO 09/01/25 22:00 Ceftriaxone Sodium 50 ml @ 100 mls/hr DAILY@2100 IV 09/01/25 21:00 Insulin Glargine 15 units DAILY@1000 SC 09/01/25 10:00 09/01/25 09:57 15 UNITS Diagnostic Test (Pha) 1 strip ACHS 09/01/25 11:30 09/01/25 12:01 1 STRIP Insulin Human Regular ACHS SC 09/01/25 11:30 09/01/25 17:44 4 UNITS Dextrose 50 ml UD PRN IV 09/01/25 07:15 Ondansetron HCl 4 mg Q8HPRN PRN IV 09/01/25 10:15 09/01/25 10:42 4 MG Ergocalciferol 50,000 unit Q7D PO 09/01/25 12:00 09/01/25 12:07 50,000 UNIT Cyanocobalamin 1,000 mcg DAILY PO 09/02/25 10:00 Examination General Appearance: Pale, Alert, Oriented X3, Cooperative, mild distress HEENT: Atraumatic, PERRLA, EOMI, Mucous membr. moist/pink Respiratory: Clear to auscultation, Normal air movement Cardiovascular: Regular rate, Normal S1, Normal S2, No murmurs Abdominal: Normal bowel sounds, Soft, No tenderness, No hepatospenomegaly, No masses Extremities: Scars on bilateral foreamrs. No clubbing, No cyanosis, No edema, Normal pulses, No tenderness/swelling Skin: No rashes, No breakdown, No significant lesion Neuro: Normal gait, Normal speech, Strength at 5/5 X4 ext, Normal tone, Sensation intact, Cranial nerves 3-12 NL, Reflexes 2+ : No vaginal bleeding Rectal: No rectal bleeding, normal rectal sphincter tone, rectal valve with stools, no hemorroids. Sample for SOB was sent to the lab. and Rectal exam perfomed on the precense of conditioner tender: SANDRA banuelos, Psych/Mental Status: Mental status NL, Mood NL laboratory and microbiology Laboratory Tests 09/01/25 05:57 Test 09/01/25 05:57 Range/Units Serum Glucose 142 H 74-106 mg/dL Problem List/Assessment/Plan Problem List/Assessment/Plan #Acute generalized weakness likely due to acute normocytic hypochromic anemia in the setting of myelodysplastic syndrome #Acute pancytopenia due to myelodysplastic syndrome #Acute on chronic severe normocytic hypochromic anemia due to above -chest x-ray: grossly unremarkable without evidence of clear consolidations -hemoglobin was 7.3, repeated hemoglobin was 6.7 -blood type and screen, 1 unit of packed red blood cells transfusion -monitor and repeat hemoglobin and hematocrit closely -IV fluids NS 0.9% at 75 cc/hour -ordered BNP, troponins were negative -ordered COVID and influenza test ordered iron panel, ferritin #MARISOL likely due to vasomotor nephropathy #Possible viral gastroenteritis #Acute dehydration -IV fluids NS 0.9% at 75 cc/hour -Stool WBC -ordered COVID and influenza test - Monitor BUN and creatinine #Uncontrolled type 2 diabetes mellitus with hyperglycemia and diabetic polyneuropathy -mild sliding scale insulin, monitor blood glucose closely -restart gabapentin 600 mg b.i.d. #Chronic Hypertensive heart disease with diastolic/systolic dysfunction -lisinopril 40 mg daily and nifedipine 30 mg daily -monitor BP #Chronic Hyperlipidemia -start atorvastatin 40 mg daily #History of ischemic stroke with minimal right-sided neurologic deficits -follow-up with oncologist ([facility] for bone marrow transplant) DVT prophylaxis Diet: Cardiac diet and low carbohydrate Goals of care discussed with the patient for more than 35 minutes Code Status: Full code PCP: Case discussed with Dr. Barfield Plan discussed with: Patient My Orders My Orders Orders - UDAY GOTTI RESIDENT Procedure Category Date Status Time Blood Culture PAULINO 09/01/25 In Process 07:01 Urine Bacterial PAULINO 09/01/25 Logged Culture 07:01 Echo 2d Mode Cardiac US 09/01/25 Logged DOP 10:36 Complete Blood Count LAB 09/02/25 Verified 04:00 Basic Metabolic Panel LAB 09/02/25 Verified 04:00 CC Plasma Assessment Blood Product Administration S: [id number] Date of Service: Sep 01, 2025 Billing Provider: TELMA BARFIELD MD Common Visit Codes: [id number] INP/OBS CARE(HIGH) UDAY GOTTI RESIDENT Sep 01, 2025 21:10
[2025-09-01] MEDS: ATORVASTATIN 20 MG TAB PO SCH (21:58)
[2025-09-02 00:36] VITALS: BP 109/66; PULSE 78; RESP 19; TEMP 97.7; O2SAT 97
[2025-09-02 05:15] VITALS: BP 111/62; PULSE 73; RESP 17; TEMP 98.2; O2SAT 97
[2025-09-02 05:43] LABS: Hemoglobin 7.7 g/dL (12.2-16.2)
[2025-09-02 05:45] LABS: Chloride 106 mmol/L (98-107); Hematocrit 22.4 % (36.0-46.0); Mean Corpuscular Hemoglobin 31.1 pg (28.0-32.0); Mean Corpuscular Volume 90.2 fL (80.0-100.0); Nucleated Red Blood Cells % 0.1 %; Potassium 3.7 mmol/L (3.5-5.1); Sodium 142 mmol/L (136-145)
[2025-09-02 05:46] LABS: Anion Gap 9 (5-15); Carbon Dioxide 27 mmol/L (20-31)
[2025-09-02 05:47] LABS: Calcium 9.1 mg/dL (8.7-10.4)
[2025-09-02 05:51] LABS: BUN/Creatinine Ratio 9.8 (10.0-20.0); Blood Urea Nitrogen 11 mg/dL (9-23)
[2025-09-02 05:54] LABS: Glucose 186 mg/dL (74-106)
[2025-09-02 08:55] VITALS: BP 109/67; PULSE 71; RESP 17; TEMP 98.2; O2SAT 94
[2025-09-02] MEDS: ACETAMINOPHEN 325 MG TAB PO PRN (09:55)
[2025-09-02] MEDS: CYANOCOBALAMIN 500 MCG TAB PO SCH (09:57)
[2025-09-02] MEDS ORDERED: HYDROcodone-ACET 10/325MG TAB PO PRN (10:45)
[2025-09-02] MEDS ORDERED: MORPHINE SULFATE INJ 2 MG/ml SYRG IV PRN (11:00)
[2025-09-02 12:37] VITALS: BP 124/55; PULSE 68; RESP 18; TEMP 97.8; O2SAT 98
[2025-09-02 14:03] LABS: Hematocrit 24.3 % (36.0-46.0); Hemoglobin 8.3 g/dL (12.2-16.2)
--- NOTE | 2025-09-02 16:25 | DVHSR ---
APPROVED REPORT EXAM: Two-dimensional and M-mode echocardiogram with Doppler and color Doppler. Blood Pressure: 109/67 mmHg INDICATION Rule out CHF RISK FACTORS Obesity: Height: 5'2", Weight: 207 DIMENSIONS LVDd 4.8 (3.8-5.7cm) LA (2D) 4.5 (1.9-4.0cm) Aortic Root 3.0 (2.0-3.7cm) LVDs 3.3 (2.5-4.0cm) LA (MM) (1.9-4.0cm) Aortic Cusp Exc 1.5 (1.5-2.0cm) EF (%) 60.0 (55-70%) Rt. Atrium 3.9 (1.9-4.0cm) Asc. Aorta cm IVSd 1.1 (0.7-1.1cm) RV (D) (1.8-2.4cm) PWd 1.2 (0.7-1.1cm) Mitral Valve Mitral Mitral Stenosis E wave 1.23m/s MV Mean GR. mmHg A wave 1.27m/s MV Peak GR. mmHg E/A ratio 1.0 2D MVA cm2 DECEL Time 245ms PRESS 1/2 Time ms Aortic Valve Aortic Valve Aortic Stenosis V1 1.04m/s AO Mean GR. 8mmHg V2 1.87m/s AO Peak GR. 14mmHg LVOT Diameter 2.0 (1.8-2.4cm) Doppler VIOLETA 1.75cm2 Pulmonic Valve V2 0.80m/s Tricuspid Valve TR Velocity 2.46m/s RVSP 27mmHg Other Information Technically limited study due to body habitus. Conclusion MILD LVH AND MILD LV DIASTOLIC DYSFUNCTION LV EF IS 65% CALCIFIED POSTERIOR MITRAL LEAFLET AND ANNULUS NORMAL RV FUNCTION NORMAL TV.PV AND AORTIC LEAFLETS NO EFFUSION
--- NOTE | 2025-09-02 17:07 | DVHDSRES ---
Discharge Summary Date of Admission Resident Creating Document: NATALEE MAYNARD RESIDENT Aug 31, 2025 at 21:30 Date of Discharge: Sep 02, 2025 Admitting Diagnosis Generalized weakness due to acute on chronic anemia in the setting of myelodysplastic syndrome Labs/Diagnostic Data: Laboratory Results Test 09/02/25 13:30 09/02/25 11:32 09/02/25 05:24 09/01/25 13:23 Hemoglobin 8.3 g/dL (12.2-16.2) Hematocrit 24.3 % (36.0-46.0) POC Glucose 161 mg/dl (70-106) White Blood Count 2.3 10^3/uL (4.4-10.8) Red Blood Count 2.48 10^6/uL (4.0-5.20) Mean Corpuscular Volume 90.2 fL (80.0-100.0) Mean Corpuscular Hemoglobin 31.1 pg (28.0-32.0) Mean Corpuscular Hemoglobin Concent 34.5 g/dL (32.0-36.0) Red Cell Distribution Width 20.6 % (11.8-14.3) Platelet Count 74 10^3/uL (140-450) Mean Platelet Volume 8.1 fL (6.9-10.8) Neutrophils (%) (Auto) 42.9 % (37.0-80.0) Lymphocytes (%) (Auto) 44.5 % (10.0-50.0) Monocytes (%) (Auto) 12.1 % (0.0-12.0) Eosinophils (%) (Auto) 0.3 % (0.0-7.0) Basophils (%) (Auto) 0.2 % (0.0-2.0) Neutrophils # (Auto) 1.0 10 ^3/uL (1.6-8.6) Lymphocytes # (Auto) 1.0 10 ^3/uL (0.4-5.4) Monocytes # (Auto) 0.3 10 ^3/uL (0-1.3) Eosinophils # (Auto) 0 10 ^3/uL (0-0.8) Basophils # (Auto) 0 10 ^3/uL (0-0.2) Nucleated Red Blood Cells 0.1 % Sodium Level 142 mmol/L (136-145) Potassium Level 3.7 mmol/L (3.5-5.1) Chloride Level 106 mmol/L (98-107) Carbon Dioxide Level 27 mmol/L (20-31) Anion Gap 9 (5-15) Blood Urea Nitrogen 11 mg/dL (9-23) Creatinine 1.12 mg/dL (0.550-1.02) Glomerular Filtration Rate Calc 55 mL/min (>90) BUN/Creatinine Ratio 9.8 (10.0-20.0) Serum Glucose 186 mg/dL (74-106) Calcium Level 9.1 mg/dL (8.7-10.4) Thyrotropin Receptor Antibody <1.10 IU/L (0.00-1.75) Test 09/01/25 10:45 09/01/25 05:57 09/01/25 03:39 08/31/25 21:27 Stool Occult Blood Negative (Negative) Stool Occult Blood Sample #3 (Negative) Iron Level 220 ug/dL (50-170) Total Iron Binding Capacity 226 ug/dL (250-425) Percent Iron Saturation 97.3 % (15-50) Vitamin B12 Level 276 pg/mL (211-911) Vitamin D 25-Hydroxy 25.9 ng/mL (30.0-100) Thyroid Stimulating Hormone (TSH) 0.49 uIU/mL (0.55-4.78) Free Thyroxine (T4) Calculated 0.87 ng/dL (0.89-1.76) Free Triiodothyronine (T3) pg/mL 2.59 pg/mL (2.3-4.2) Influenza Type A Antigen Negative (Negative) Influenza Type B Antigen Negative (Negative) SARS-CoV-2 Antigen (Rapid) Negative (NEGATIVE) Lactic Acid Level 1.1 mmol/L (0.4-2.0) Test 08/31/25 20:01 08/31/25 19:39 Urine Color Light-yellow (Yellow) Urine Clarity Clear (Clear) Urine pH 7.0 (5.0-9.0) Urine Specific Ambrose 1.030 (1.001-1.035) Urine Protein Negative (Negative) Urine Ketones 1+ (Negative) Urine Blood Negative /uL (Negative) Urine Nitrite Negative (Negative) Urine Bilirubin Negative (Negative) Urine Urobilinogen 2 mg/dL (Negative) Urine Leukocyte Esterase Negative /uL (Negative) Urine RBC <1 /hpf (0 - 4) Urine Microscopic WBC 1 /HPF (0-5) Urine Squamous Epithelial Cells Few /hpf (<5) Urine Bacteria None seen /hpf (None Seen) Urine Glucose 4+ mg/dL (Normal) Hemoglobin A1c 8.4 % A1C (<5.7) Magnesium Level 2.1 mg/dL (1.6-2.6) Total Bilirubin 0.3 mg/dL (0.2-1.0) Aspartate Amino Transferase (AST) 57 U/L (13-40) Alanine Aminotransferase (ALT) 106 U/L (7-40) Alkaline Phosphatase 57 U/L (46-116) Troponin I High Sensitivity 3 ng/L (</=34) B-Type Natriuretic Peptide 152.68 pg/mL (0-100) Total Protein 7.1 g/dL (5.7-8.2) Albumin 4.2 g/dL (3.2-4.8) Triglycerides Level 302 mg/dL (< 150) Cholesterol Level 213 mg/dL (< 200) LDL Cholesterol 120 mg/dL (< 100) HDL Cholesterol 47 mg/dL (40-59) Other Laboratory Tests 09/02/25 13:30 09/02/25 05:24 Brief Hx & Hospital Course: Mireille Guerrero is a 65-year-old female patient, with past medical history of myelodysplastic syndrome (2022), type 2 diabetes mellitus, hyperlipidemia, hypertension, ischemic stroke (2014) who came to [facility] ED with the chief complaint of 2 days of worsening of generalized weakness and fatigue, associated with shortness of breath, nausea, vomiting, double vision and increased urinary frequency with dark colored urine. On further questioning, the patient reported that she has been seen by oncologist at [facility] for her myelodysplastic syndrome. Patient stated that two years ago when she was diagnosed at [facility] she started chemotherapy for five months but then they recommended to stop because treatment was not working; Also, they recommended bone marrow transplant. The patient was advised to receive RBC transfusion if her hemoglobin is less than 8 due to possible rapid decline. The patient reported she had a recent bone marrow biopsy performed at [facility] last week. She was transfused with 1 unit of PRBC. The patient mentioned improvement in the shortness of breath and weakness after transfusion.. Hemoglobin today was 8.3. Patient was discharged home in a stable condition. Patient has an appointment scheduled with her oncologist next week. She was recommended to follow-up with PCP within 1-2 weeks. Physical examination on the day of discharge: General Appearance: Pale, Alert, Oriented X3, Cooperative, mild distress HEENT: Atraumatic, PERRLA, EOMI, Mucous membranes are moist/pink Respiratory: Clear to auscultation, Normal air movement Cardiovascular: Regular rate, Normal S1, Normal S2, No murmurs Abdominal: Normal bowel sounds, Soft, No tenderness, No hepatosplenomegaly, No masses Extremities: Scars on bilateral forearms. No clubbing, No cyanosis, No edema, Normal pulses, No tenderness/swelling Skin: No rashes, No breakdown, No significant lesion Neuro: Normal gait, Normal speech, Strength at 5/5 X4 ext, Normal tone, Sensation intact, Cranial nerves 3-12 NL, Reflexes 2+ Psych/Mental Status: Mental status NL, Mood NL Goals of care discussed with the patient for 20 minutes; full code Discussed with Dr. Blake Operations or Procedures 1.PROCEDURE(s): CXRP - CHEST PORTABLE REASON: weak ORDER NUMBER(s): [id number], ACCESSION NUMBER(s): [id number] CHEST RADIOGRAPH Indication: weak Technique: Single frontal view of the chest was obtained Comparison: XY CHEST XRAY 1 VIEW on DOS: 05/03/25, XY CHEST PORTABLE on DOS: 04/20/25, XR CHEST 1 VIEW on DOS: 03/13/25 FINDINGS: Lines and Tubes: Right IJ approach port-A-Cath terminating over the distal SVC. Lungs: No focal consolidation. Pleura: No effusion. No pneumothorax. Cardiomediastinal contours: Unremarkable Bones: No acute osseous abnormality. IMPRESSION: No acute cardiopulmonary disease. 2.PROCEDURE(s): [facility] - ECHO 2D MODE CARDIAC DOP REASON: Rule out CHF ORDER NUMBER(s): [id number], ACCESSION NUMBER(s): [id number] APPROVED REPORT EXAM: Two-dimensional and M-mode echocardiogram with Doppler and color Doppler. Blood Pressure: 109/67 mmHg INDICATION Rule out CHF RISK FACTORS Obesity: Height: 5'2", Weight: 207 DIMENSIONS LVDd 4.8 (3.8-5.7cm) LA (2D) 4.5 (1.9-4.0cm) Aortic Root 3.0 (2.0- 3.7cm) LVDs 3.3 (2.5-4.0cm) LA (MM) (1.9-4.0cm) Aortic Cusp Exc 1.5 (1.5- 2.0cm) EF (%) 60.0 (55-70%) Rt. Atrium 3.9 (1.9-4.0cm) Asc. Aorta cm IVSd 1.1 (0.7-1.1cm) RV (D) (1.8-2.4cm) PWd 1.2 (0.7-1.1cm) Mitral Valve Mitral Mitral Stenosis E wave 1.23m/s MV Mean GR. mmHg A wave 1.27m/s MV Peak GR. mmHg E/A ratio 1.0 2D MVA cm2 DECEL Time 245ms PRESS 1/2 Time ms Aortic Valve Aortic Valve Aortic Stenosis V1 1.04m/s AO Mean GR. 8mmHg V2 1.87m/s AO Peak GR. 14mmHg LVOT Diameter 2.0 (1.8-2.4cm) Doppler VIOLETA 1.75cm2 Pulmonic Valve V2 0.80m/s Tricuspid Valve TR Velocity 2.46m/s RVSP 27mmHg Other Information Technically limited study due to body habitus. Conclusion MILD LVH AND MILD LV DIASTOLIC DYSFUNCTION LV EF IS 65% CALCIFIED POSTERIOR MITRAL LEAFLET AND ANNULUS NORMAL RV FUNCTION NORMAL TV.PV AND AORTIC LEAFLETS NO EFFUSION Condition at Discharge: Stable Final Diagnosis/Problems List Acute generalized weakness likely due to acute on chronic normocytic hypochromic Anemia in the setting of myelodysplastic syndrome Acute on chronic pancytopenia due to myelodysplastic syndrome Acute on chronic severe normocytic hypochromic anemia due to above MARISLO, likely due to vasomotor nephropathy Possible viral gastroenteritis, ruled out Acute dehydration Uncontrolled type 2 diabetes mellitus with hyperglycemia and diabetic polyneuropathy Chronic Hypertensive heart disease with diastolic/systolic dysfunction Chronic Hyperlipidemia History of ischemic stroke with minimal right-sided neurologic deficits Discharge Disposition: Home Discharge Instruct/Medications Diet: Consistent carbohydrate, Cardiac 2g Na,low cholest Diet comment: + CONSISTENT CARB DIET Activity: No Restrictions, As Tolerated Follow Up/Referral: follow up in discharge clinic in 1-2 weeks follow up with PCP in 1-2 weeks The patient will do her CBC on Thursday as scheduled before Medications: To continue home medications Scheduled Atorvastatin Calcium (Atorvastatin Calcium), 1 TAB PO DAILY, (Reported) Citalopram Hydrobromide (Celexa), 1 TAB PO DAILY, (Reported) Empagliflozin (Jardiance), 1 TAB PO DAILY, (Reported) Gabapentin (Gabapentin), 1,200 MG PO DAILY, (Reported) Lisinopril (Lisinopril), 40 MG PO DAILY, (Reported) Nifedipine (Nifedipine Er), 1 TAB PO DAILY, (Reported) Scheduled PRN Alprazolam (Xanax), 1 TAB PO DAILY PRN Hydrocodone-Acetaminophen (Hydrocodone/Acetaminophen 5-325 mg), 1 TAB PO BIDPRN PRN for PAIN SCALE 1 THRU 6, (Reported) Miscellaneous Medications Magnesium Citrate (Magnesium Citrate), PO, (Reported) Semaglutide (Ozempic), (Reported) Sennosides-Docusate Sodium (Stimulant Laxative 8.6-50 mg), PO, (Reported) Trazodone Hcl (Trazodone Hcl), 100 MG PO, (Reported) Discharge Statement: "Patient was advised to return to the ER or call 911 if any headaches, dizziness, shortness of breath, chest pain, abdominal pain, bleeding, fevers, or worsening of medical condition. Patient was counseled about treatment plan, medications, possible side effects, patientverbalized understanding. All questions were answered to the best of my ability. This discharge took greater then 30 minutes in planning, reviewing documentation, counseling the patient, and discussing with other team members." ASSESSMENT ASSESSMENT Assessment GENERALIZED WEAKNESS Date of Service: Sep 02, 2025 Billing Provider: JUAN BLAKE MD Common Visit Codes: 87024-EHV/OBS DISCH DAY >30min Secondary Visit Codes: 25288-[id number] CARE PLAN 30 MINUTES (20 minutes) NATALEE MAYNARD RESIDENT Sep 02, 2025 17:07 ERIC LUX RESIDENT Sep 02, 2025 18:21 JUAN BLAKE MD Sep 04, 2025 08:54
== END 2025-09-02 16:14 | disposition home or self-care (01) | DRG 811 ==
LOC: ER 18:11 → OVERFLOW 21:30 → EAST 09-01 10:48
PROVIDERS: ADMIT Internal Medicine; ATTEND Internal Medicine
PROC: 30233N1 Transfusion of Nonautologous Red Blood Cells into Peripheral Vein, Percutaneous Approach (ICD-10-PCS; principal; 2025-09-01)
DX: D50.9 Iron deficiency anemia, unspecified (principal); N17.0 Acute kidney failure with tubular necrosis; D61.818 Other pancytopenia; I50.9 Heart failure, unspecified; D46.9 Myelodysplastic syndrome, unspecified; E86.0 Dehydration; A08.4 Viral intestinal infection, unspecified; I11.0 Hypertensive heart disease with heart failure; E11.42 Type 2 diabetes mellitus with diabetic polyneuropathy; E78.5 Hyperlipidemia, unspecified; E11.65 Type 2 diabetes mellitus with hyperglycemia; Z20.822 Contact with and (suspected) exposure to COVID-19; Z79.899 Other long term (current) drug therapy; Z90.49 Acquired absence of other specified parts of digestive tract; Z98.51 Tubal ligation status
CPT/HCPCS: 36415; 36430; 71045; 80048; 80053; 80061; 81001; 82270; 82306; 82607; 82962; 83036; 83540; 83550; 83605; 83735; 83880; 84439; 84443; 84445; 84481; 84484; 85014; 85018; 85025; 86850; 86900; 86901; 86902; 86922; 87040; 87426; 87804; 93306; 96361; 96365; 96375; G0378; J1815; J2405

== ENCOUNTER 2025-09-17 19:37 | Inpatient (IN) | payer MEDICARE, MEDICAID ==
[~2025-09-17] VITALS: Ht 157.5 cm; Wt 89.9 kg
[~2025-09-17 19:37] MED LIST changes: -GABA-1250 PO; +HYDR1TAB97 PO; +MAGNSOL PO; -METF-370 PO; -METO25TA93 PO; +SEMA2INJ3; +SENN-199 PO
[2025-09-17 21:07] LABS: Hematocrit 18.6 % (36.0-46.0); Mean Corpuscular Hemoglobin 32.4 pg (28.0-32.0); Mean Corpuscular Volume 93.3 fL (80.0-100.0); Nucleated Red Blood Cells % 0.1 %
[2025-09-17 21:13] LABS: Hemoglobin 6.4 g/dL (12.2-16.2)
--- NOTE | 2025-09-17 21:13 | DVH ---
CHEST RADIOGRAPH Indication: SOB Technique: Single frontal view of the chest was obtained Comparison: XY CHEST PORTABLE on DOS: 08/31/25, XY CHEST XRAY 1 VIEW on DOS: 05/03/25, XY CHEST PORTABLE on DOS: 04/20/25 FINDINGS: Lines and Tubes: Right internal jugular catheter in place in the superior vena cava above the right atrium. No pneumothorax. Lungs: No focal consolidation. Pleura: No effusion. No pneumothorax. Cardiomediastinal contours: Unremarkable Bones: No acute osseous abnormality. IMPRESSION: 1. Right internal jugular catheter good position no pneumothorax.
[2025-09-17 21:22] LABS: Albumin 4.2 g/dL (3.2-4.8); Alkaline Phosphatase 63 U/L (46-116); Anion Gap 11 (5-15); BUN/Creatinine Ratio 13.3 (10.0-20.0); Blood Urea Nitrogen 15 mg/dL (9-23); Calcium 9.4 mg/dL (8.7-10.4); Carbon Dioxide 27 mmol/L (20-31); Chloride 106 mmol/L (98-107); Magnesium 2.1 mg/dL (1.6-2.6); Potassium 3.7 mmol/L (3.5-5.1); Sodium 144 mmol/L (136-145); Total Protein 7.2 g/dL (5.7-8.2)
[2025-09-17 21:23] LABS: Alanine Aminotransferase 54 U/L (7-40); Glucose 182 mg/dL (74-106)
[2025-09-17 21:25] LABS: Bilirubin, Total 0.3 mg/dL (0.2-1.0)
[2025-09-17 22:38] LABS: Total Iron Binding Capacity 253.0 ug/dL (250-425)
--- NOTE | 2025-09-17 22:44 | ED.PDOC ---
History of Present Illness HPI Comments 65-year-old, obese female presents with chief complaint of generalized weakness with congestion for the past 3 days. She denies having any chest pain, shortness of breath, bloody stools or vomitus, or further acute symptoms. Significant history for Myelodysplastic Syndrome, anemia, CHF, CVA, DM, and HTN. Chief Complaint: General Weakness Time Seen by MD: 22:30 Primary Care Provider: UNKNOWN Reviewed Notes: Nurses Notes, Medications, Allergies Allergies: Coded Allergies: NO KNOWN ALLERGIES (Unverified , 06/15/23) Home Meds Active Scripts Alprazolam (Xanax) 0.25 Mg Tb, 1 TAB PO DAILY PRN for 30 Days, #30 TAB Prov:HORACIO HENAO MD 01/07/24 Reported Medications Hydrocodone-Acetaminophen (Hydrocodone/Acetaminophen 5-325 mg) 1 Tab Tab, 1 TAB PO BIDPRN PRN for PAIN SCALE 1 THRU 6 09/01/25 Semaglutide (Ozempic) 2 Mg/3 Ml Inj 09/01/25 Sennosides-Docusate Sodium (Stimulant Laxative 8.6-50 mg) 1 Tab Tab, PO 09/01/25 Magnesium Citrate (Magnesium Citrate) 1.745 Gm/30 Ml Shauna, PO 09/01/25 Trazodone Hcl (Trazodone Hcl) 100 Mg Tab, 100 MG PO, MG 01/04/24 Lisinopril (Lisinopril) 40 Mg Tab, 40 MG PO DAILY for 30 Days, MG 01/04/24 Nifedipine (Nifedipine Er) 30 Mg Tab, 1 TAB PO DAILY 08/01/23 Atorvastatin Calcium (ATORVASTATIN CALCIUM) 10 Mg Tab, 1 TAB PO DAILY 08/01/23 Empagliflozin (Jardiance) 10 Mg Tab, 1 TAB PO DAILY 08/01/23 Citalopram Hydrobromide (Celexa) 10 Mg Tab, 1 TAB PO DAILY, #30 TAB 2 Refills 06/29/23 Gabapentin (Gabapentin) 600 Mg Tab, 1200 MG PO DAILY for 30 Days, MG 06/29/23 Information Source: Patient Mode of Arrival: Ambulatory Severity: Moderate Timing: Days Duration: Since onset Prehospital treatment: None Past Medical History PAST MEDICAL HISTORY: Anemia, Cancer ( Myelodysplastic Syndrome), CHF, CVA, Depression, DM, High Lipids, HTN Surgical History: Appendectomy, BTL INVESTMENT EXECUTIVE History: Denies all INVESTMENT EXECUTIVE Hx Family History Family History: Reviewed,noncontributory to illness, Family hx of DM, Family hx of heart christine Social History Smoker: Non-Smoker Alcohol: Denies ETOH Use Drugs: Denies Drug Use Lives In: Home All Other Systems: Reviewed and Negative (Comprehensive review of systems are negative unless otherwise stated in HPI) Physical Exam General Appearance: Mild Distress, Obese HEENT: Normal ENT Inspection, Pharynx Normal, TMs Normal Neck: Full Range of Motion, Non-Tender, Normal, Normal Inspection Respiratory: Chest Non-Tender, Lungs Clear, No Accessory Muscle Use, No Resp iratory Distress, Normal Breath Sounds Cardiovascular: No Edema, No JVD, No Murmur, No Gallop, Normal Peripheral Pulses, Regular Rate/Rhythm Breast Exam: Deferred Gastrointestinal: No Organomegaly, Non Tender, No Pulsatile Mass, Normal Bowel Sounds, Soft Genitalia: Deferred Pelvic: Deferred Rectal: Deferred Extremities: No calf tenderness, Normal capillary refill, Normal inspection, Normal range of motion, Non-tender, No pedal edema Musculoskeletal : Apperance: Normal Neurologic: Alert, employee adviser II-XII nml as Tested, No Motor Deficits, Normal Affect, Normal Mood, No Sensory Deficits Cerebellar Function: Normal Reflexes: Normal Skin: Dry, Normal Color, Warm Lymphatic: No Adenopathy Was a procedure done? Was a procedure done?: No Differential Dx Considerations may include: Anemia secondary to Myelodysplastic Syndrome, dehydration, electrolyte imbalance, malnutrition, among others X-Ray, Labs, Meds, VS Vital Signs Date Time Temp Pulse Resp B/P (MAP) Pulse Ox O2 Delivery O2 Flow Rate FiO2 09/17/25 23:55 76 14 98 Room Air* 0 09/17/25 23:53 98.6 76 14 120/38 (65) 99 98.6 09/17/25 19:45 98.5 84 18 130/61 97 98.5 Lab Test 09/17/25 22:31 09/17/25 21:48 09/17/25 20:53 Range/Units White Blood Count 2.6 L 2.8 L 4.4-10.8 10^3/uL Red Blood Count 2.00 L 1.99 L 4.0-5.20 10^6/uL Hemoglobin 6.3 *L 6.4 *L 12.2-16.2 g/dL Hematocrit 18.5 L 18.6 L 36.0-46.0 % Mean Corpuscular Volume 92.8 93.3 80.0-100.0 fL Mean Corpuscular Hemoglobin 31.4 32.4 H 28.0-32.0 pg Mean Corpuscular Hemoglobin Concent 33.9 34.7 32.0-36.0 g/dL Red Cell Distribution Width 23.8 H 24.2 H 11.8-14.3 % Platelet Count 97 L 104 L 140-450 10^3/uL Mean Platelet Volume 8.8 9.2 6.9-10.8 fL Neutrophils (%) (Auto) 45.7 45.5 37.0-80.0 % Lymphocytes (%) (Auto) 44.1 42.9 10.0-50.0 % Monocytes (%) (Auto) 9.7 10.9 0.0-12.0 % Eosinophils (%) (Auto) 0.3 0.4 0.0-7.0 % Basophils (%) (Auto) 0.2 0.3 0.0-2.0 % Neutrophils # (Auto) 1.2 L 1.3 L 1.6-8.6 10 ^3/uL Lymphocytes # (Auto) 1.1 1.2 0.4-5.4 10 ^3/uL Monocytes # (Auto) 0.3 0.3 0-1.3 10 ^3/uL Eosinophils # (Auto) 0 0 0-0.8 10 ^3/uL Basophils # (Auto) 0 0 0-0.2 10 ^3/uL Nucleated Red Blood Cells 0.2 0.1 % Platelet Estimate Decrea Large Platelets Few Anisocytosis (manual) Slight Sodium Level 144 144 136-145 mmol/L Potassium Level 3.6 3.7 3.5-5.1 mmol/L Chloride Level 107 106 98-107 mmol/L Carbon Dioxide Level 27 27 20-31 mmol/L Anion Gap 10 11 5-15 Blood Urea Nitrogen 16 15 9-23 mg/dL Creatinine 1.00 1.13 H 0.550-1.02 mg/dL Glomerular Filtration Rate Calc 63 54 >90 mL/min BUN/Creatinine Ratio 16.0 13.3 10.0-20.0 Serum Glucose 175 H 182 H 74-106 mg/dL Calcium Level 9.3 9.4 8.7-10.4 mg/dL Total Bilirubin 0.3 0.3 0.2-1.0 mg/dL Aspartate Amino Transferase (AST) 28 28 13-40 U/L Alanine Aminotransferase (ALT) 54 H 54 H 7-40 U/L Alkaline Phosphatase 61 63 46-116 U/L Total Protein 7.1 7.2 5.7-8.2 g/dL Albumin 4.2 4.2 3.2-4.8 g/dL Troponin I High Sensitivity < 3 L < 3 L </=34 ng/L Prothrombin Time 10.6 9.3-11.8 sec Prothrombin Time INR 1.00 0.9-1.15 Activated Partial Thromboplast Time < 20.0 L 24.5-34.5 SEC Magnesium Level 2.1 1.6-2.6 mg/dL Iron Level 231 H 50-170 ug/dL Total Iron Binding Capacity 253 250-425 ug/dL Percent Iron Saturation 91.3 H 15-50 % [place] [id number] Ph: [phone] DIAGNOSTIC IMAGING Diagnostic Imaging Report : [id number] Signed PATIENT: JUDY SCHULTZ ACCT: [id number] UNIT: [id number] : 1960 LOC: ER ROOM / BED: / AGE / SEX: 65 / F ADM STATUS: REG ER SERVICE 32 ORDERING PHYSICIAN: EVANS DEMPSEY MD PROCEDURE(s): CXRP - CHEST PORTABLE REASON: SOB ORDER NUMBER(s): [id number], ACCESSION NUMBER(s): [id number] CHEST RADIOGRAPH Indication: SOB Technique: Single frontal view of the chest was obtained Comparison: XY CHEST PORTABLE on DOS: 08/31/25, XY CHEST XRAY 1 VIEW on DOS: 05/03/25, XY CHEST PORTABLE on DOS: 04/20/25 FINDINGS: Lines and Tubes: Right internal jugular catheter in place in the superior vena cava above the right atrium. No pneumothorax. Lungs: No focal consolidation. Pleura: No effusion. No pneumothorax. Cardiomediastinal contours: Unremarkable Bones: No acute osseous abnormality. IMPRESSION: 1. Right internal jugular catheter good position no pneumothorax. ATED BY: MIGUEL HENDRICKS Jr., DO DICTATED DATE/TIME: 09/17/252110 SIGNED BY: MIGUEL HENDRICKS Jr., SIGNED DATE/TIME: 09/17/252110 CC: Time of 1ST Reevaluation: 23:00 Reevaluation 1ST: Unchanged Patient Education/Counseling: Diagnosis, Treatment, Other (Need for admission) Family Education/Counseling: No Family Present SEPSIS Sepsis Screen Date sepsis recognized/suspect: Sep 17, 2025 Time Sepsis recognized/suspect: 1947 Recent Procedure: No On Antibiotic Therapy: No Respiratory Rate >20: No Heart Rate >90: No Temp<36 C (96.8 F) or >38.3 C: No SBP <90 or MAP <65 mmHG: No New Acute Mental Status Change: No Is the patient on CPAP, BIPAP,: No Physician Orders Chest Portable (09/17/25 20:33) Urinalysis (09/17/25 20:33) Electrocardigram (09/17/25 20:33) Packedcell-Noactive Bleeding (09/17/25 22:17) Type And Screen (09/17/25 22:17) Chest Portable (09/17/25 22:18) Vital Signs Date Time Temp Pulse Resp B/P (MAP) Pulse Ox O2 Delivery O2 Flow Rate FiO2 09/17/25 23:55 76 14 98 Room Air* 0 21 09/17/25 23:53 98.6 76 14 120/38 (65) 99 98.6 09/17/25 19:45 98.5 84 18 130/61 97 98.5 Laboratory Tests Test 09/17/25 20:53 09/17/25 22:31 White Blood Count 2.8 10^3/uL (4.4-10.8) L 2.6 10^3/uL (4.4-10.8) L Departure 1 Departure Time of Disposition: 00:03 Impression: Primary Impression: Symptomatic anemia Additional Impressions: Myelodysplastic syndrome with multilineage dysplasia Weakness Disposition: ADMITTED INPATIENT Admit to: [facility] Condition: Stable Comments 65-year-old female with a history of type 2 diabetes and myelodysplastic syndrome now complaining of generalized weakness. She is quite anemic with an H and H of 6 and 18. I ordered a blood transfusion. Patient will need to be admitted for supportive care and further workup Critical Care Note Critical Care Time?: No Stability Stability form required: No Heart Score Heart Score: Heart Score Response (Comments) Value History N/A 0 EKG N/A 0 Age N/A 0 Risk Factors N/A 0 Troponin N/A 0 Total 0 I personally scribed for EVANS DEMPSEY MD ([email or web address]) on 09/17/25 at 22:44. Electronically submitted by Mathieu Cordero ([email or web address]). I personally scribed for EVANS DEMPSEY MD ([email or web address]) on 09/17/25 at 23:24. Electronically submitted by Mathieu Cordero ([email or web address]). EVANS DEMPSEY MD Sep 17, 2025 22:44
[2025-09-17 22:53] LABS: Mean Corpuscular Volume 92.8 fL (80.0-100.0)
[2025-09-17 22:54] LABS: Hematocrit 18.5 % (36.0-46.0); Mean Corpuscular Hemoglobin 31.4 pg (28.0-32.0); Nucleated Red Blood Cells % 0.2 %
[2025-09-17 22:57] LABS: Hemoglobin 6.3 g/dL (12.2-16.2)
[2025-09-17 23:01] LABS: Iron 231.0 ug/dL (50-170)
[2025-09-17 23:06] LABS: Alanine Aminotransferase 54 U/L (7-40); Albumin 4.2 g/dL (3.2-4.8); Alkaline Phosphatase 61 U/L (46-116); Anion Gap 10 (5-15); BUN/Creatinine Ratio 16.0 (10.0-20.0); Blood Urea Nitrogen 16 mg/dL (9-23); Calcium 9.3 mg/dL (8.7-10.4); Carbon Dioxide 27 mmol/L (20-31); Chloride 107 mmol/L (98-107); Glucose 175 mg/dL (74-106); Potassium 3.6 mmol/L (3.5-5.1); Sodium 144 mmol/L (136-145); Total Protein 7.1 g/dL (5.7-8.2)
[2025-09-17 23:07] LABS: Bilirubin, Total 0.3 mg/dL (0.2-1.0)
[2025-09-17 23:10] LABS: INR 1.00 (0.9-1.15); Prothrombin Time 10.6 sec (9.3-11.8)
[2025-09-17 23:15] LABS: Anisocytosis Slight
[2025-09-17 23:17] LABS: Partial Thromboplastin Time < 20.0 SEC (24.5-34.5)
[2025-09-17 23:55] VITALS: PULSE 76; RESP 14; O2SAT 98
[2025-09-18] VITALS (13 sets, daily range): BP systolic 96–162; BP diastolic 45–78; PULSE 68–84; RESP 12–21; TEMP 97.3–98.7; O2SAT 96–97
[2025-09-18] MEDS: SOD CHL 0.45% 1,000 ML IV SCH (01:30)
[2025-09-18] MEDS ORDERED: DEXTROSE (50%) 50ML SYRG IV PRN (01:30)
[2025-09-18] MEDS ORDERED: ONDANSETRON HCL 4 MG/2 ML VIAL IV PRN (01:30)
[2025-09-18] MEDS ORDERED: MORPHINE SULFATE INJ 2 MG/ml SYRG IV PRN (01:45)
[2025-09-18] MEDS ORDERED: NITROGLYCERIN 0.4 MG SL TAB SL PRN (01:45)
--- NOTE | 2025-09-18 01:46 | DVHHP2 ---
History of Present Illness Reason for Visit: Symptomatic anemia History of Present Illness The patient is a 65-year-old female with past medical history of anemia, myelodysplastic syndrome, CHF, CVA, depression, DM, hypertension, and hyperlipidemia who presented to [facility] ED with complaint of generalized weakness for the past 3 days. Patient was seen and evaluated in the ED, laboratory data shows WBC 2.6, hemoglobin 6.3, hematocrit 18.5, platelets 36415, sodium 144, potassium 3.6, BUN 16, creatinine 1.00, GFR 63, glucose 175, calcium 9.3, iron 231, TIBC 253, saturation 91.3%, troponin < 3, AST 28, ALT 54, blood pressure 120/38, heart rate 76, temperature 98.6 F, O2 saturation 98% on room air. Chest x-ray revealing right internal jugular catheter good position no pneumothorax. Patient will receive 1 units of PRBC, please see medication orders section in the computer. On my assessment, patient denied chest pain, no headache, dizziness, diaphoresis, shortness of breaths, no abdominal pain, diarrhea, nausea, vomiting, fever, no chills. Patient was admitted for further evaluation and medical management. Past Medical History Anemia, Cancer ( Myelodysplastic Syndrome), CHF, CVA, Depression, DM, High Lipids, HTN Past Surgical History Appendectomy, BTL Family History Reviewed, noncontributory to the management of this case. Past Social History The patient lives at home, denies smoking, alcohol or illicit drugs abuse. Review of Systems Constitutional: Yes: Weakness, Other (Fatigue); No: Fever, Chills, Sweats, Malaise Eyes: No: Pain, Vision change, Conjunctivae inflammation, Eyelid inflammation, Other, Redness ENT: No: Ear pain, Ear discharge, Nose pain, Nose discharge, Nose congestion, Mouth pain, Mouth swelling, Throat pain, Throat swelling, Other Respiratory: No: Cough, Dry, Shortness of breath, SOB with excertion, Wheezing, Hemoptysis, Pleuritic Pain, Sputum, Wheezing, Other Cardiovascular: No: Chest Pain, Palpitations, Orthopnea, Paroxysmal Noc. Dyspnea, Edema, Lt Headedness, Other Gastrointestinal: No: Nausea, Vomiting, Abdominal Pain, Diarrhea, Constipation, Melena, Hematochezia, Other Genitourinary: No Dysuria, No Frequency, No Incontinence, No Hematuria, No Retention, No Other Musculoskeletal: No: other, neck pain, shoulder pain, arm pain, back pain, hand pain, leg pain, foot pain Skin: No: Rash, Lesions, Jaundice, Bruising, Other Neurological: No: Weakness, Numbness, Incoordination, Change in speech, Confusion, Seizures, Other Allergies: Coded Allergies: NO KNOWN ALLERGIES (Unverified , 06/15/23) Medications Current Medications Medications Dose Ordered Sig/Jud Route Start Time Stop Time Status Last Admin Dose Admin Diagnostic Test (Pha) 1 strip ACHS 09/18/25 07:00 Insulin Human Regular HS SC 09/18/25 22:00 Insulin Human Regular AC SC 09/18/25 07:00 Dextrose 50 ml UD PRN IV 09/18/25 01:30 Acetaminophen/ Hydrocodone Bitart 1 tab Q4HP PRN PO 09/18/25 01:30 Ondansetron HCl 4 mg Q4HP PRN IV 09/18/25 01:30 Docusate Sodium 100 mg BIDPRN PRN PO 09/18/25 01:30 Acetaminophen 650 mg Q6HP PRN PO 09/18/25 01:30 Sodium Chloride 1,000 ml @ 50 mls/hr Q20H IV 09/18/25 01:30 Exam Vital Signs Vital Signs Date Time Temp Pulse Resp B/P (MAP) Pulse Ox O2 Delivery O2 Flow Rate FiO2 09/17/25 23:55 76 14 98 Room Air* 0 21 09/17/25 23:53 98.6 120/38 (65) 98.6 General Appearance: Alert, Oriented X3, Cooperative, No acute distress HEENT: Atraumatic, PERRLA, EOMI, Mucous membr. moist/pink Respiratory: Normal air movement Cardiovascular: Regular rate, Normal S1, Normal S2, No murmurs Abdominal: Normal bowel sounds, Soft, No tenderness, No hepatospenomegaly, No masses Extremities: No clubbing, No cyanosis, No edema, Normal pulses, No tenderness/swelling Skin: No rashes, No significant lesion Neuro: Normal speech, Normal tone, Sensation intact, Cranial nerves 3-12 NL, Reflexes 2+, Other (Generalized weakness) Psych/Mental Status: Mental status NL, Mood NL Labs/Xrays Labs Test 09/17/25 22:31 09/17/25 21:48 09/17/25 20:53 Range/Units White Blood Count 2.6 L 4.4-10.8 10^3/uL Red Blood Count 2.00 L 4.0-5.20 10^6/uL Hemoglobin 6.3 *L 12.2-16.2 g/dL Hematocrit 18.5 L 36.0-46.0 % Mean Corpuscular Volume 92.8 80.0-100.0 fL Mean Corpuscular Hemoglobin 31.4 28.0-32.0 pg Mean Corpuscular Hemoglobin Concent 33.9 32.0-36.0 g/dL Red Cell Distribution Width 23.8 H 11.8-14.3 % Platelet Count 97 L 140-450 10^3/uL Mean Platelet Volume 8.8 6.9-10.8 fL Neutrophils (%) (Auto) 45.7 37.0-80.0 % Lymphocytes (%) (Auto) 44.1 10.0-50.0 % Monocytes (%) (Auto) 9.7 0.0-12.0 % Eosinophils (%) (Auto) 0.3 0.0-7.0 % Basophils (%) (Auto) 0.2 0.0-2.0 % Neutrophils # (Auto) 1.2 L 1.6-8.6 10 ^3/uL Lymphocytes # (Auto) 1.1 0.4-5.4 10 ^3/uL Monocytes # (Auto) 0.3 0-1.3 10 ^3/uL Eosinophils # (Auto) 0 0-0.8 10 ^3/uL Basophils # (Auto) 0 0-0.2 10 ^3/uL Nucleated Red Blood Cells 0.2 % Platelet Estimate Decrea Large Platelets Few Anisocytosis (manual) Slight Sodium Level 144 136-145 mmol/L Potassium Level 3.6 3.5-5.1 mmol/L Chloride Level 107 98-107 mmol/L Carbon Dioxide Level 27 20-31 mmol/L Anion Gap 10 5-15 Blood Urea Nitrogen 16 9-23 mg/dL Creatinine 1.00 0.550-1.02 mg/dL Glomerular Filtration Rate Calc 63 >90 mL/min BUN/Creatinine Ratio 16.0 10.0-20.0 Serum Glucose 175 H 74-106 mg/dL Calcium Level 9.3 8.7-10.4 mg/dL Total Bilirubin 0.3 0.2-1.0 mg/dL Aspartate Amino Transferase (AST) 28 13-40 U/L Alanine Aminotransferase (ALT) 54 H 7-40 U/L Alkaline Phosphatase 61 46-116 U/L Total Protein 7.1 5.7-8.2 g/dL Albumin 4.2 3.2-4.8 g/dL Troponin I High Sensitivity < 3 L </=34 ng/L Prothrombin Time 10.6 9.3-11.8 sec Prothrombin Time INR 1.00 0.9-1.15 Activated Partial Thromboplast Time < 20.0 L 24.5-34.5 SEC Magnesium Level 2.1 1.6-2.6 mg/dL Iron Level 231 H 50-170 ug/dL Total Iron Binding Capacity 253 250-425 ug/dL Percent Iron Saturation 91.3 H 15-50 % PATIENT: JUDY SCHULTZACCT: [id number] UNIT: [id number] : 1960 LOC: ER ROOM / BED: / AGE / SEX: 65 / F ADM STATUS: REG ER SERVICE 32 ORDERING PHYSICIAN: EVANS DEMPSEY MD PROCEDURE(s): CXRP - CHEST PORTABLE REASON: SOB ORDER NUMBER(s): [id number], ACCESSION NUMBER(s): [id number] CHEST RADIOGRAPH Indication: SOB Technique: Single frontal view of the chest was obtained Comparison: XY CHEST PORTABLE on DOS: 08/31/25, XY CHEST XRAY 1 VIEW on DOS: 05/03/25, XY CHEST PORTABLE on DOS: 04/20/25 FINDINGS: Lines and Tubes: Right internal jugular catheter in place in the superior vena cava above the right atrium. No pneumothorax. Lungs: No focal consolidation. Pleura: No effusion. No pneumothorax. Cardiomediastinal contours: Unremarkable Bones: No acute osseous abnormality. IMPRESSION: 1. Right internal jugular catheter good position no pneumothorax. SEPSIS Sepsis Screen Date sepsis recognized/suspect: Sep 17, 2025 Time Sepsis recognized/suspect: 2355 Recent Procedure: No On Antibiotic Therapy: No Respiratory Rate >20: No Heart Rate >90: No Temp<36 C (96.8 F) or >38.3 C: No SBP <90 or MAP <65 mmHG: No New Acute Mental Status Change: No Is the patient on CPAP, BIPAP,: No Physician Orders Chest Portable (09/17/25 20:33) Urinalysis (09/17/25 20:33) Electrocardigram (09/17/25 20:33) Type And Screen (09/17/25 22:17) Chest Portable (09/17/25 22:18) Ok To Access Tito-Cath (09/18/25 00:39) Ok To Access Tito-Cath (09/18/25 00:39) B-Type Natriuretic Peptide (09/18/25 01:22) Complete Blood Count (09/18/25 04:00) Comprehensive Metabolic Panel (09/18/25 04:00) Consistent Carb(Ccho)Diabetes (09/18/25 Breakfast) Glucose Blood (Accu-Chek Comfort Curve T (09/18/25 07:00) Insulin R (Human) (Insulin R) (09/18/25 22:00) Insulin R (Human) (Insulin R) (09/18/25 07:00) Dextrose 50% Syringe (09/18/25 01:30) Allergies (09/18/25 01:22) Code Status (09/18/25 01:22) Oxygen Per Hour (09/18/25 01:22) Hydrocodone-Acet 5/325mg Tab ([place] 5/32 (09/18/25 01:30) Ondansetron Hcl (Zofran) (09/18/25 01:30) Docusate Sodium Capsule (Colace Capsule) (09/18/25 01:30) Fall Risk Precautions In Place QSHIFT (09/18/25 01:22) Complete Blood Count (09/19/25 04:00) Comprehensive Metabolic Panel (09/19/25 04:00) Condition: Serious (09/18/25 01:22) Acetaminophen Tablet (Tylenol Tablet) (09/18/25 01:30) Maintain Bed Rest (09/18/25 01:22) Sequential Compression Device (09/18/25 ) Sod Chl 0.45% (Sodium Chloride 0.45% Via (09/18/25 01:30) Admit (09/18/25 01:45) Nitroglycerin Sublingual (Ntrostat Subli (09/18/25 01:45) Morphine Sulfate Injection (09/18/25 01:45) Stat Ekg For Chest Pain (09/18/25 01:45) Notify Md Of Changes From Base (09/18/25 01:45) Golf Professional For 24 Hours (09/18/25 01:45) Emergency Dysrhythmia Protocol (09/18/25 01:45) Rhythm Strips Once Every Shift (09/18/25 01:45) Oxygen By Nasal Cannula (09/18/25 01:45) Vital Signs Date Time Temp Pulse Resp B/P (MAP) Pulse Ox O2 Delivery O2 Flow Rate FiO2 09/17/25 23:55 76 14 98 Room Air* 0 21 09/17/25 23:53 98.6 76 14 120/38 (65) 99 98.6 09/17/25 19:45 98.5 84 18 130/61 97 98.5 Laboratory Tests Test 09/17/25 20:53 09/17/25 22:31 White Blood Count 2.8 10^3/uL (4.4-10.8) L 2.6 10^3/uL (4.4-10.8) L Assessment/Plan Assessment/Plan Symptomatic anemia Pancytopenia Diabetes mellitus with hyperglycemia Myelodysplastic syndrome with multilineage dysplasia Generalized weakness Plan 1. Admit to telemetry unit 2. Breathing treatment 3. Pain control management 4. Management of fluids and electrolytes 5. Consultation for hospitalist 6. Diagnostic tests chest x-ray 7. DVT prophylaxis on SCDs 8. Repeat labs CBC, CMP in a.m. 9. Continue with current medical management 10. Treatment plan discussed with patient and RN. Patient verbalized understanding. Plan discussed with: Patient, Other (RN) My Orders Orders - SALINAS MENDEZ DNP Procedure Category Date Status Time B-Type Natriuretic LAB 09/18/25 In Process Peptide 01:22 Complete Blood Count LAB 09/18/25 Logged 04:00 Comprehensive LAB 09/18/25 Logged Metabolic Panel 04:00 Consistent DIET 09/18/25 Transmitted Carb(Ccho)Diabetes Breakfast Glucose Blood PHA 09/18/25 In Process (Accu-Chek Comfort 07:00 Insulin R (Human) PHA 09/18/25 In Process (Insulin R) 22:00 Insulin R (Human) PHA 09/18/25 In Process (Insulin R) 07:00 Dextrose 50% Syringe PHA 09/18/25 In Process 01:30 Allergies EVON 09/18/25 In Process 01:22 Code Status CODE 09/18/25 Transmitted 01:22 Oxygen Per Hour RT 09/18/25 Transmitted 01:22 Hydrocodone-Acet PHA 09/18/25 In Process 5/325mg Tab ([place] 01:30 Ondansetron Hcl [facility] 09/18/25 In Process (Zofran) 01:30 Docusate Sodium PHA 09/18/25 In Process Capsule (Colace 01:30 Fall Risk Precautions [facility] 09/18/[address] 01:22 Complete Blood Count LAB 09/19/25 Verified 04:00 Comprehensive LAB 09/19/25 Verified Metabolic Panel 04:00 Condition: Serious [facility] 09/18/25 In Process 01:22 Acetaminophen Tablet [facility] 09/18/25 In Process (Tylenol Tablet) 01:30 Maintain Bed Rest [facility] 09/18/25 In Process 01:22 Sequential EVON 09/18/25 In Process Compression Device Sod Chl 0.45% (Sodium PHA 09/18/25 In Process Chloride 0.45% Via 01:30 Admit ADMIT 09/18/25 Verified 01:45 Nitroglycerin [facility] 09/18/25 Verified Sublingual (Ntrostat 01:45 Morphine Sulfate [facility] 09/18/25 Verified Injection 01:45 Stat Ekg For Chest [facility] 09/18/25 Verified Pain 01:45 Notify Md Of Changes [facility] 09/18/25 Verified From Base 01:45 Golf Professional For [facility] 09/18/25 Verified 24 Hours 01:45 Emergency Dysrhythmia [facility] 09/18/25 Verified Protocol 01:45 Rhythm Strips Once [facility] 09/18/25 Verified Every Shift 01:45 Oxygen By Nasal RT 09/18/25 Verified Cannula 01:45 Problem List: (1) Symptomatic anemia (2) Pancytopenia (3) Diabetes mellitus with hyperglycemia (4) Myelodysplastic syndrome with multilineage dysplasia (5) Generalized weakness Date of Service: Sep 18, 2025 Billing Provider: SALINAS MENDEZ DNP Common Visit Codes: [id number] INP/OBS CARE (HIGH) SALINAS MENEDZ DNP Sep 18, 2025 01:46
[2025-09-18] MEDS: HYDROcodone-ACET 5/325MG TAB PO PRN (02:57)
[2025-09-18] MEDS: ACCU-CHEK COMFORT CURVE STRIP VI SCH (06:56)
[2025-09-18] MEDS: InsuLIN REG 1unit/0.01ml Soln (100units/ml) SC SCH ×2 (06:59→22:02)
[2025-09-18 07:14] LABS: Hematocrit 21.5 % (36.0-46.0); Hemoglobin 7.2 g/dL (12.2-16.2); Mean Corpuscular Hemoglobin 31.3 pg (28.0-32.0); Mean Corpuscular Volume 93.3 fL (80.0-100.0); Nucleated Red Blood Cells % 0.3 %
[2025-09-18 07:25] LABS: Albumin 3.8 g/dL (3.2-4.8); Alkaline Phosphatase 57 U/L (46-116); Anion Gap 10 (5-15); BUN/Creatinine Ratio 15.4 (10.0-20.0); Blood Urea Nitrogen 14 mg/dL (9-23); Calcium 9.0 mg/dL (8.7-10.4); Carbon Dioxide 26 mmol/L (20-31); Potassium 3.6 mmol/L (3.5-5.1); Sodium 144 mmol/L (136-145); Total Protein 6.6 g/dL (5.7-8.2)
[2025-09-18 07:26] LABS: Bilirubin, Total 0.7 mg/dL (0.2-1.0)
[2025-09-18 07:31] LABS: Alanine Aminotransferase 47 U/L (7-40); Chloride 108 mmol/L (98-107); Glucose 233 mg/dL (74-106)
[2025-09-18 09:45] LABS: Urine Protein, UAD Negative (Negative)
--- NOTE | 2025-09-18 12:20 | DVHPNRES ---
Progress Note Date Seen: Sep 18, 2025 Resident Creating Document: RICARDO ROE RESIDENT Medical Necessity Reason Pt with a Central, PICC or Fol: No Subjective Review of Systems The patient is a 65-year-old female with past medical history of anemia, myelodysplastic syndrome, CHF, CVA, depression, DM, hypertension, and hyperlipidemia who presented to [facility] ED with complaint of generalized weakness for the past 3 days. Patient was seen and evaluated in the ED, laboratory data shows WBC 2.6, hemoglobin 6.3, hematocrit 18.5, platelets 68293, sodium 144, potassium 3.6, BUN 16, creatinine 1.00, GFR 63, glucose 175, calcium 9.3, iron 231, TIBC 253, saturation 91.3%, troponin < 3, AST 28, ALT 54, blood pressure 120/38, heart rate 76, temperature 98.6 F, O2 saturation 98% on room air. Chest x-ray revealing right internal jugular catheter good position no pneumothorax. Patient will receive 1 units of PRBC. patient denied chest pain, no headache, dizziness, diaphoresis, shortness of breaths, no abdominal pain, diarrhea, nausea, vomiting, fever, no chills. Patient was admitted for further evaluation and medical management. PMH-anemia, myelodysplastic syndrome, CHF, CVA, depression, DM, hypertension, and hyperlipidemia PSH- Appendectomy, BTL Allergy- NKDA Personal History/ Social History- The patient lives at home, denies smoking, alcohol or illicit drugs abuse. Review of other system Generalized weakness Cardiovascular- deny acute chest pain or shortness of breath or cough or palpitation Respiratory denies cough or short of breath or wheezing Gastrointestinal- denies any rectal bleeding, nausea or vomiting Musculoskeletal-denies acute joint swelling or tenderness or redness Neurological- dizziness Psychiatry- denies depression or SI or HI Skin- denies acute rash or purpura Patient was seen today at bedside. Labs and chart reviewed. Patient reported feeling tired Patient had 1 unit of blood transfusion, repeat hemoglobin was 7.2, ordered another unit of blood transfusion. Objective vital signs Vital Sign Date Time Temp Pulse Resp B/P (MAP) Pulse Ox O2 Delivery O2 Flow Rate FiO2 09/18/25 10:00 72 12 128/58 (81) 85 09/18/25 08:00 98.7 98.7 09/18/25 07:35 Room Air* 0 21 Total Intake and Output 09/17/25 09/17/25 09/18/25 15:00 23:00 07:00 Intake Total 950 ml Output Total 0 ml Balance 950 ml medications Current Medications Medications Dose Ordered Sig/Ujd Route Start Time Stop Time Status Last Admin Dose Admin Diagnostic Test (Pha) 1 strip ACHS 09/18/25 07:00 09/18/25 06:56 1 STRIP Insulin Human Regular HS SC 09/18/25 22:00 Insulin Human Regular AC SC 09/18/25 07:00 09/18/25 06:59 6 UNITS Dextrose 50 ml UD PRN IV 09/18/25 01:30 Acetaminophen/ Hydrocodone Bitart 1 tab Q4HP PRN PO 09/18/25 01:30 09/18/25 02:57 1 TAB Ondansetron HCl 4 mg Q4HP PRN IV 09/18/25 01:30 Docusate Sodium 100 mg BIDPRN PRN PO 09/18/25 01:30 Acetaminophen 650 mg Q6HP PRN PO 09/18/25 01:30 Sodium Chloride 1,000 ml @ 50 mls/hr Q20H IV 09/18/25 01:30 09/18/25 05:45 50 MLS/HR Nitroglycerin 0.4 mg Q5MINP PRN SL 09/18/25 01:45 Morphine Sulfate 2 mg Q30M PRN IV 09/18/25 01:45 Examination General examination- pale looking HEENT- PEERLA, pale looking Cardiovascular- S1-S2 audible, rate and rhythm regular, no murmur Respiratory- CTAB, no wheeze or rhonchi Gastrointestinal-nontender, bowel sound+. Nondistended Musculoskeletal-no acute joint swelling or tenderness or redness Lower extremity- no leg edema Neurological- cranial nerves intact, no acute dysarthria or dysphagia Psychiatry- denies depression or SI or HI Skin- no acute rash or purpura laboratory and microbiology Laboratory Tests 09/18/25 07:04 Test 09/18/25 07:04 Range/Units Serum Glucose 233 H 74-106 mg/dL Problem List/Assessment/Plan Problem List/Assessment/Plan Assessment and plan #Severe acute on chronic normocytic hypochromic anemia #Hypochromic/normocytic Anemia in the setting of myelodysplastic syndrome #Acute on chronic pancytopenia due to myelodysplastic syndrome -status post blood transfusion -patient follows up with a [facility] of hope for myelodysplastic syndrome/severe anemia/pancytopenia (diagnosed in 2022) -monitor CBC -Avoid anticoagulation #Uncontrolled type 2 diabetes mellitus with hyperglycemia -polyneuropathy likely diabetic neuropathy -hemoglobin A1c on 08/31/2025 was 8.4 -continue saline sliding scale as prescribed -monitor blood sugar as prescribed -restarted patient's home medication gabapentin for pain #Hypertensive heart disease with diastolic/systolic dysfunction # Hyperlipidemia #History of ischemic stroke -continue atorvastatin as per -we will hold all antihypertensive medication as patient's blood pressure was soft on admission Goals of care, Code status full code ; discussed with >15 minutes PUD prophylaxis: Pantoprazole DVT prophylaxis: SCD Plan discussed with Dr. Bailon , nursing staff, patient Total time spent on patient evaluation, chart review, assessment and plan, discussion discussion >35 minutes Plan discussed with: Patient, Other (RN) My Orders My Orders Orders - RICARDO ROE RESIDENT Procedure Category Date Status Time Packedcell-Noactive BBK 09/18/25 Logged Bleeding 11:27 Type And Screen BBK 09/18/25 Logged 11:27 Hemoglobin & LAB 09/18/25 Logged Hematocrit 11:27 CC Plasma Assessment Blood Product Administration S: [id number] Date of Service: Sep 18, 2025 Billing Provider: HORACIO BAILON MD Common Visit Codes: [id number] INP/OBS CARE(HIGH) RICARDO ROE RESIDENT Sep 18, 2025 12:20 JIGN SAMAYOA RESIDENT Sep 19, 2025 00:11
[2025-09-18 13:23] LABS: Hematocrit 23.1 % (36.0-46.0); Hemoglobin 7.3 g/dL (12.2-16.2)
[2025-09-18] MEDS: PANTOPRAZOLE 40 MG TAB PO SCH (13:42)
[2025-09-18] MEDS: KETOROLAC TROMETH 30 MG/ML 1ML VIAL IV ONE (13:43)
[2025-09-18 20:09] LABS: Hematocrit 22.6 % (36.0-46.0); Hemoglobin 7.7 g/dL (12.2-16.2)
[2025-09-18] MEDS: GABAPENTIN 300 MG CAP PO SCH (21:59)
[2025-09-18] MEDS: DOCUSATE SOD 100 MG CAP PO PRN (22:05)
[2025-09-19] VITALS (8 sets, daily range): BP systolic 119–146; BP diastolic 65–75; PULSE 64–78; RESP 16–20; TEMP 97.5–98.6; O2SAT 92–100
[2025-09-19 06:34] LABS: Hematocrit 22.7 % (36.0-46.0); Hemoglobin 7.8 g/dL (12.2-16.2); Mean Corpuscular Hemoglobin 31.4 pg (28.0-32.0); Mean Corpuscular Volume 90.8 fL (80.0-100.0); Nucleated Red Blood Cells % 0.3 %
[2025-09-19 07:02] LABS: Anion Gap 9 (5-15); Carbon Dioxide 26 mmol/L (20-31); Potassium 4.1 mmol/L (3.5-5.1); Sodium 143 mmol/L (136-145)
[2025-09-19 07:03] LABS: Calcium 9.0 mg/dL (8.7-10.4)
[2025-09-19 07:08] LABS: BUN/Creatinine Ratio 13.0 (10.0-20.0); Blood Urea Nitrogen 12 mg/dL (9-23)
[2025-09-19 07:17] LABS: Chloride 108 mmol/L (98-107); Glucose 167 mg/dL (74-106)
[2025-09-19] MEDS: ATORVASTATIN 20 MG TAB PO SCH (09:34)
[2025-09-19] MEDS ORDERED: PATIENTS OWN MEDICATION (Lisinopril 40 MG) PO SCH (10:00)
[2025-09-19] MEDS: ACETAMINOPHEN 325 MG TAB PO PRN (10:16)
--- NOTE | 2025-09-19 14:07 | DVH ---
CLINICAL HISTORY: Iron overload. TECHNIQUE: Multi sequence multi planar MRI images of the abdomen were obtained without contrast. COMPARISON: None available at the time of dictation. FINDINGS: There is prominent hypointense signal in the liver and spleen on all sequences, particularly on the T2 weighted images, consistent with hemo siderosis. The liver and spleen also demonstrate lower signal on out of phase images compared to inphase images, which is also seen with hemosiderosis. No focal liver lesion identified on noncontrast enhanced exam. The pancreas, adrenal glands, and kidneys appear unremarkable. No abdominal aortic aneurysm. Moderate stool in the visualized portions of the colon. No gallstones visualized in the gallbladder. No biliary ductal dilatation. IMPRESSION: Prominent hypointense signal in the liver and spleen on all sequences, consistent with hemosiderosis.
--- NOTE | 2025-09-19 14:45 | DVH ---
EXAM: XY L SHOULDER 2+ VIEW XRAY CLINICAL INDICATION: Rule out osteoarthritis/frozen shoulder TECHNIQUE: XY L SHOULDER 2+ VIEW XRAY Comparison: XY L SHOULDER 2+ VIEW XRAY on DOS: 09/23/23 FINDINGS/IMPRESSION: There is no evidence of acute fracture or dislocation. Calcification of the biceps tendon insertion. Moderate glenohumeral osteoarthritis The alignment is anatomical. There is no radiopaque foreign body.
--- NOTE | 2025-09-19 15:23 | DVHPNRES ---
Progress Note Date Seen: Sep 19, 2025 Resident Creating Document: RICARDO ROE RESIDENT Medical Necessity Reason Pt with a Central, PICC or Fol: No Subjective Review of Systems The patient is a 65-year-old female with past medical history of anemia, myelodysplastic syndrome, CHF, CVA, depression, DM, hypertension, and hyperlipidemia who presented to [facility] ED with complaint of generalized weakness for the past 3 days. Patient was seen and evaluated in the ED, laboratory data shows WBC 2.6, hemoglobin 6.3, hematocrit 18.5, platelets 57239, sodium 144, potassium 3.6, BUN 16, creatinine 1.00, GFR 63, glucose 175, calcium 9.3, iron 231, TIBC 253, saturation 91.3%, troponin < 3, AST 28, ALT 54, blood pressure 120/38, heart rate 76, temperature 98.6 F, O2 saturation 98% on room air. Chest x-ray revealing right internal jugular catheter good position no pneumothorax. Patient will receive 1 units of PRBC. patient denied chest pain, no headache, dizziness, diaphoresis, shortness of breaths, no abdominal pain, diarrhea, nausea, vomiting, fever, no chills. Patient was admitted for further evaluation and medical management. PMH-anemia, myelodysplastic syndrome, CHF, CVA, depression, DM, hypertension, and hyperlipidemia PSH- Appendectomy, BTL Allergy- NKDA Personal History/ Social History- The patient lives at home, denies smoking, alcohol or illicit drugs abuse. Review of other system Generalized weakness Cardiovascular- deny acute chest pain or shortness of breath or cough or palpitation Respiratory denies cough or short of breath or wheezing Gastrointestinal- denies any rectal bleeding, nausea or vomiting Musculoskeletal-denies acute joint swelling or tenderness or redness Neurological- dizziness Psychiatry- denies depression or SI or HI Skin- denies acute rash or purpura Patient was seen today at bedside. Labs and chart reviewed. Patient is status post 2 units of PRBC transfusion on this admission Hemoglobin today 7.8 Patient with a iron overload, patient has recurrent blood transfusion, serum iron 231, ferritin 3283 Ordered MRI of the liver which revealed-Prominent hypointense signal in the liver and spleen on all sequences, consistent with hemosiderosis. Ordered desferrioxamine Complained of left shoulder pain, ordered X-ray of the left shoulder revealed- Calcification of the biceps tendon insertion. Moderate glenohumeral osteoarthritis Objective vital signs Vital Sign Date Time Temp Pulse Resp B/P (MAP) Pulse Ox O2 Delivery O2 Flow Rate FiO2 09/19/25 13:00 97.8 75 20 119/65 (83) 94 97.8 09/19/25 08:00 Room Air* 0 21 Total Intake and Output 09/18/25 09/18/25 09/19/25 15:00 23:00 07:00 Intake Total 600 ml 800 ml Balance 600 ml 800 ml medications Current Medications Medications Dose Ordered Sig/Jud Route Start Time Stop Time Status Last Admin Dose Admin Diagnostic Test (Pha) 1 strip ACHS 09/18/25 07:00 09/19/25 11:46 1 STRIP Insulin Human Regular HS SC 09/18/25 22:00 09/18/25 22:02 3 UNITS Insulin Human Regular AC SC 09/18/25 07:00 09/19/25 11:52 6 UNITS Dextrose 50 ml UD PRN IV 09/18/25 01:30 Acetaminophen/ Hydrocodone Bitart 1 tab Q4HP PRN PO 09/18/25 01:30 09/18/25 20:42 1 TAB Ondansetron HCl 4 mg Q4HP PRN IV 09/18/25 01:30 Docusate Sodium 100 mg BIDPRN PRN PO 09/18/25 01:30 09/18/25 22:05 100 MG Acetaminophen 650 mg Q6HP PRN PO 09/18/25 01:30 09/19/25 10:16 650 MG Nitroglycerin 0.4 mg Q5MINP PRN SL 09/18/25 01:45 Morphine Sulfate 2 mg Q30M PRN IV 09/18/25 01:45 Pantoprazole Sodium 40 mg DAILY@0600 PO 09/18/25 13:00 09/19/25 06:42 40 MG Atorvastatin Calcium 10 mg DAILY PO 09/19/25 10:00 09/19/25 09:34 10 MG Gabapentin 600 mg TID PO 09/18/25 22:00 09/19/25 06:42 600 MG Insulin Glargine 10 units QAM SC 09/19/25 14:15 Examination General examination- pale looking HEENT- PEERLA, pale looking Cardiovascular- S1-S2 audible, rate and rhythm regular, no murmur Respiratory- CTAB, no wheeze or rhonchi Gastrointestinal-nontender, bowel sound+. Nondistended Musculoskeletal-no acute joint swelling or tenderness or redness Lower extremity- no leg edema Neurological- cranial nerves intact, no acute dysarthria or dysphagia Psychiatry- denies depression or SI or HI Skin- no acute rash or purpura laboratory and microbiology Laboratory Tests 09/19/25 06:07 Test 09/19/25 06:07 Range/Units Serum Glucose 167 H 74-106 mg/dL Problem List/Assessment/Plan Problem List/Assessment/Plan Assessment and plan #Acute generalized weakness likely due to acute on chronic normocytic hypochromic #Anemia in the setting of myelodysplastic syndrome #Acute on chronic pancytopenia due to myelodysplastic syndrome -status post blood transfusion -patient follows up with a [facility] of hope for myelodysplastic syndrome/severe anemia/pancytopenia -monitor CBC #Uncontrolled type 2 diabetes mellitus with hyperglycemia -polyneuropathy likely diabetic neuropathy -hemoglobin A1c on 08/31/2025 was 8.4 -continue insulin as prescribed -monitor blood sugar as prescribed -restarted patient's home medication gabapentin for pain # iron overload, - patient has recurrent blood transfusion, -serum iron 231, ferritin 3283 -MRI of the liver which revealed-Prominent hypointense signal in the liver and spleen on all sequences, consistent with hemosiderosis. -plan is to give patient iron chelating agent as phlebotomy is not a good option due to patient's severe anemia -ordered desferrioxamine -monitor serum iron, ferritin #Moderate glenohumeral osteoarthritis -Complained of left shoulder pain --ray of the left shoulder revealed-Calcification of the biceps tendon insertion. Moderate glenohumeral osteoarthritis -continue pain medication as prescribed #Hypertensive heart disease with diastolic/systolic dysfunction # Hyperlipidemia #History of ischemic stroke -continue atorvastatin as per -we will hold all antihypertensive medication as patient's blood pressure was soft on admission Goals of care, Code status full code ; discussed with >15 minutes PUD prophylaxis: Pantoprazole DVT prophylaxis: SCD Plan discussed with Dr. Bailon , nursing staff, patient Total time spent on patient evaluation, chart review, assessment and plan, discussion discussion >35 minutes Plan discussed with: Patient, Other (RN) My Orders My Orders Orders - RICARDO ROE RESIDENT Procedure Category Date Status Time Mrsa Screen PAULINO 09/18/25 Uncollected 18:31 Atorvastatin (Lipitor) PHA 09/19/25 In Process 10:00 Gabapentin Capsule PHA 09/18/25 In Process (Neurontin Capsule) 22:00 L Shoulder 2+ View XY 09/19/25 Resulted Xray 14:01 Insulin Lantus PHA 09/19/25 In Process (Glargine) (Lantus) 14:15 CC Plasma Assessment Blood Product Administration S: 1425 Visit Coding STANDARD RES Billing Provider: HORACIO BAILON MD Date of Service if different f: Sep 19, 2025 Common Visit Codes: [id number] INP/OBS CARE(HIGH) RICARDO ROE RESIDENT Sep 19, 2025 15:23
[2025-09-19] MEDS: INSULIN LANTUS (GLARGINE) 1 /0.01ml (100units/ml) SC SCH (16:23)
[2025-09-19] MEDS ORDERED: D5W 5% IV SCH (18:00)
[2025-09-19] MEDS ORDERED: DEFEROXAMINE IV SCH (18:00)
[2025-09-19] MEDS: DEFEROXAMINE IV SCH (20:48)
[2025-09-19] MEDS: D5W 5% IV SCH (20:48)
[2025-09-19] MEDS: MELATONIN 5 MG TAB PO ONE (22:27)
[2025-09-20 01:00] VITALS: BP 133/58; PULSE 83; RESP 18; TEMP 98; O2SAT 93
[2025-09-20 05:00] VITALS: BP 102/56; PULSE 62; RESP 17; TEMP 97.7; O2SAT 92
[2025-09-20 06:36] LABS: Hematocrit 22.3 % (36.0-46.0); Hemoglobin 7.8 g/dL (12.2-16.2); Mean Corpuscular Hemoglobin 31.7 pg (28.0-32.0); Mean Corpuscular Volume 90.6 fL (80.0-100.0); Nucleated Red Blood Cells % 0.5 %
[2025-09-20 06:55] LABS: Albumin 3.7 g/dL (3.2-4.8); Alkaline Phosphatase 52 U/L (46-116); Anion Gap 11 (5-15); BUN/Creatinine Ratio 13.3 (10.0-20.0); Blood Urea Nitrogen 12 mg/dL (9-23); Calcium 9.0 mg/dL (8.7-10.4); Carbon Dioxide 28 mmol/L (20-31); Chloride 105 mmol/L (98-107); Magnesium 2.0 mg/dL (1.6-2.6); Potassium 4.0 mmol/L (3.5-5.1); Sodium 144 mmol/L (136-145); Total Protein 6.6 g/dL (5.7-8.2)
[2025-09-20 06:56] LABS: Alanine Aminotransferase 43 U/L (7-40); Bilirubin, Total 0.4 mg/dL (0.2-1.0); Glucose 154 mg/dL (74-106)
[2025-09-20 08:00] VITALS: PULSE 58; PULSE 61; RESP 16; O2SAT 100
[2025-09-20 08:44] VITALS: BP 123/66; PULSE 58; RESP 16; TEMP 98.6; O2SAT 100
[2025-09-20 12:34] VITALS: BP 108/59; PULSE 69; RESP 18; TEMP 98; O2SAT 95
[2025-09-20 12:38] VITALS: BP 108/59; PULSE 69; RESP 18; TEMP 36.7; O2SAT 95
--- NOTE | 2025-09-20 15:36 | DVHDSRES ---
Discharge Summary Date of Admission Resident Creating Document: RICARDO ROE RESIDENT Sep 18, 2025 at 01:45 Date of Discharge: Sep 20, 2025 Admitting Diagnosis Fatigue and hypotension due to Symptomatic anemia Labs/Diagnostic Data: Laboratory Results Test 09/20/25 11:31 09/20/25 05:43 09/17/25 22:31 09/17/25 21:48 POC Glucose 181 mg/dl (70-106) White Blood Count 2.6 10^3/uL (4.4-10.8) Red Blood Count 2.47 10^6/uL (4.0-5.20) Hemoglobin 7.8 g/dL (12.2-16.2) Hematocrit 22.3 % (36.0-46.0) Mean Corpuscular Volume 90.6 fL (80.0-100.0) Mean Corpuscular Hemoglobin 31.7 pg (28.0-32.0) Mean Corpuscular Hemoglobin Concent 35.0 g/dL (32.0-36.0) Red Cell Distribution Width 18.9 % (11.8-14.3) Platelet Count 72 10^3/uL (140-450) Mean Platelet Volume 8.3 fL (6.9-10.8) Neutrophils (%) (Auto) 50.7 % (37.0-80.0) Lymphocytes (%) (Auto) 39.2 % (10.0-50.0) Monocytes (%) (Auto) 9.6 % (0.0-12.0) Eosinophils (%) (Auto) 0.4 % (0.0-7.0) Basophils (%) (Auto) 0.1 % (0.0-2.0) Neutrophils # (Auto) 1.3 10 ^3/uL (1.6-8.6) Lymphocytes # (Auto) 1.0 10 ^3/uL (0.4-5.4) Monocytes # (Auto) 0.2 10 ^3/uL (0-1.3) Eosinophils # (Auto) 0 10 ^3/uL (0-0.8) Basophils # (Auto) 0 10 ^3/uL (0-0.2) Nucleated Red Blood Cells 0.5 % Sodium Level 144 mmol/L (136-145) Potassium Level 4.0 mmol/L (3.5-5.1) Chloride Level 105 mmol/L (98-107) Carbon Dioxide Level 28 mmol/L (20-31) Anion Gap 11 (5-15) Blood Urea Nitrogen 12 mg/dL (9-23) Creatinine 0.90 mg/dL (0.550-1.02) Glomerular Filtration Rate Calc 71 mL/min (>90) BUN/Creatinine Ratio 13.3 (10.0-20.0) Serum Glucose 154 mg/dL (74-106) Calcium Level 9.0 mg/dL (8.7-10.4) Magnesium Level 2.0 mg/dL (1.6-2.6) Ferritin > 1650.0 ng/mL (10-291) Total Bilirubin 0.4 mg/dL (0.2-1.0) Aspartate Amino Transferase (AST) 27 U/L (13-40) Alanine Aminotransferase (ALT) 43 U/L (7-40) Alkaline Phosphatase 52 U/L (46-116) Total Protein 6.6 g/dL (5.7-8.2) Albumin 3.7 g/dL (3.2-4.8) Platelet Estimate Decrea Large Platelets Few Anisocytosis (manual) Slight B-Type Natriuretic Peptide 89.49 pg/mL (0-100) Troponin I High Sensitivity < 3 ng/L (</=34) Test 09/17/25 20:53 09/17/25 09:26 Prothrombin Time 10.6 sec (9.3-11.8) Prothrombin Time INR 1.00 (0.9-1.15) Activated Partial Thromboplast Time < 20.0 SEC (24.5-34.5) Iron Level 231 ug/dL (50-170) Total Iron Binding Capacity 253 ug/dL (250-425) Percent Iron Saturation 91.3 % (15-50) Urine Color Light-yellow (Yellow) Urine Clarity Clear (Clear) Urine pH 6.0 (5.0-9.0) Urine Specific Dewart 1.032 (1.001-1.035) Urine Protein Negative (Negative) Urine Ketones Trace (Negative) Urine Blood Negative /uL (Negative) Urine Nitrite Negative (Negative) Urine Bilirubin Negative (Negative) Urine Urobilinogen Normal mg/dL (Negative) Urine Leukocyte Esterase Trace /uL (Negative) Urine RBC 1 /hpf (0 - 4) Urine Microscopic WBC 5 /HPF (0-5) Urine Squamous Epithelial Cells Few /hpf (<5) Urine Bacteria None seen /hpf (None Seen) Urine Glucose 4+ mg/dL (Normal) Other Laboratory Tests 09/20/25 05:43 Brief Hx & Hospital Course: The patient is a 65-year-old female with past medical history of anemia, myelodysplastic syndrome, CHF, CVA, depression, DM, hypertension, and hyperlipidemia who presented to [facility] ED with complaint of generalized weakness for the past 3 days. Patient was seen and evaluated in the ED, laboratory data shows WBC 2.6, hemoglobin 6.3, hematocrit 18.5, platelets 87952, sodium 144, potassium 3.6, BUN 16, creatinine 1.00, GFR 63, glucose 175, calcium 9.3, iron 231, TIBC 253, saturation 91.3%, troponin < 3, AST 28, ALT 54, blood pressure 120/38, heart rate 76, temperature 98.6 F, O2 saturation 98% on room air. Chest x-ray revealing right internal jugular catheter good position no pneumothorax. Patient will receive 1 units of PRBC. patient denied chest pain, no headache, dizziness, diaphoresis, shortness of breaths, no abdominal pain, diarrhea, nausea, vomiting, fever, no chills. Patient was admitted for further evaluation and medical management.Patient is status post 2 units of PRBC transfusion on this admission. Repeat hemoglobin Hemoglobin today 7.8. Patient with iron overload, patient has recurrent blood transfusion, serum iron 231, ferritin 3283. MRI of the liver which revealed-Prominent hypointense signal in the liver and spleen on all sequences, consistent with hemosiderosis.. Patient had desferrioxamine. omplained of left shoulder pain- X-ray of the left shoulder revealed-Calcification of the biceps tendon insertion. Moderate glenohumeral osteoarthritis. Patient's symptoms improved with the conservative management. Patient was discharged with the advice to follow up with the PCP, discharge clinic and also oncologist as per schedule. Patient was hemodynamically stable at discharge. Review of other system Generalized weakness Cardiovascular- deny acute chest pain or shortness of breath or cough or palpitation Respiratory denies cough or short of breath or wheezing Gastrointestinal- denies any rectal bleeding, nausea or vomiting Musculoskeletal-denies acute joint swelling or tenderness or redness Neurological- dizziness Psychiatry- denies depression or SI or HI Skin- denies acute rash or purpura Plan of care was discussed with Dr. Bailon Operations or Procedures [address] [address] Ph: [phone] DIAGNOSTIC IMAGING Diagnostic Imaging Report : [id number] Signed PATIENT: FILIPPO SCHULTZT: [id number] UNIT: [id number] : 1960 [facility] AGE / SEX: 65 / F ADM STATUS: ADM IN SERVICE 1401 ORDERING PHYSICIAN: RICARDO ROE PROCEDURE(s): LSHD2 - L SHOULDER 2+ VIEW XRAY REASON: Rule out osteoarthritis/frozen shoulder ORDER NUMBER(s): [id number], ACCESSION NUMBER(s): [id number] EXAM: XY L SHOULDER 2+ VIEW XRAY CLINICAL INDICATION: Rule out osteoarthritis/frozen shoulder TECHNIQUE: XY L SHOULDER 2+ VIEW XRAY Comparison: XY L SHOULDER 2+ VIEW XRAY on DOS: 09/23/23 FINDINGS/IMPRESSION: There is no evidence of acute fracture or dislocation. Calcification of the biceps tendon insertion. Moderate glenohumeral osteoarthritis The alignment is anatomical. There is no radiopaque foreign body. ATED BY: SHLOMO WELCH MD DICTATED DATE/TIME: 09/19/25 1443 SIGNED BY: SHLOMO WELCH MD SIGNED DATE/TIME: 09/19/25 1443 CC: [address] [address] Ph: [phone] DIAGNOSTIC IMAGING Diagnostic Imaging Report : [id number] Signed PATIENT: FILIPPO SCHULTZT: [id number] UNIT: [id number] : 1960 LOC: [facility] AGE / SEX: 65 / F ADM STATUS: ADM IN SERVICE 1131 ORDERING PHYSICIAN: JING SAMAYOA PROCEDURE(s): MABL - MRI ABDOMEN NO CONTRAST REASON: Rule out iron overlaod ORDER NUMBER(s): [id number], ACCESSION NUMBER(s): [id number] CLINICAL HISTORY: Iron overload. TECHNIQUE: Multi sequence multi planar MRI images of the abdomen were obtained without contrast. COMPARISON: None available at the time of dictation. FINDINGS: There is prominent hypointense signal in the liver and spleen on all sequences, particularly on the T2 weighted images, consistent with hemo siderosis. The liver and spleen also demonstrate lower signal on out of phase images compared to inphase images, which is also seen with hemosiderosis. No focal liver lesion identified on noncontrast enhanced exam. The pancreas, adrenal glands, and kidneys appear unremarkable. No abdominal aortic aneurysm. Moderate stool in the visualized portions of the colon. No gallstones visualized in the gallbladder. No biliary ductal dilatation. IMPRESSION: Prominent hypointense signal in the liver and spleen on all sequences, consistent with hemosiderosis. ATED BY: TIEN CONTEH DO DICTATED DATE/TIME: 09/19/251403 SIGNED BY: TIEN CONTEH DO SIGNED DATE/TIME: 09/19/251403 CC: [place] [address] Ph: [phone] DIAGNOSTIC IMAGING Diagnostic Imaging Report : [id number] Signed PATIENT: FILIPPO SCHULTZT: [id number] UNIT: [id number] : 1960 LOC: ER ROOM / BED: / AGE / SEX: 65 / F ADM STATUS: REG ER SERVICE 32 ORDERING PHYSICIAN: EVANS DEMPSEY MD PROCEDURE(s): CXRP - CHEST PORTABLE REASON: SOB ORDER NUMBER(s): [id number], ACCESSION NUMBER(s): [id number] CHEST RADIOGRAPH Indication: SOB Technique: Single frontal view of the chest was obtained Comparison: XY CHEST PORTABLE on DOS: 08/31/25, XY CHEST XRAY 1 VIEW on DOS: 05/03/25, XY CHEST PORTABLE on DOS: 04/20/25 FINDINGS: Lines and Tubes: Right internal jugular catheter in place in the superior vena cava above the right atrium. No pneumothorax. Lungs: No focal consolidation. Pleura: No effusion. No pneumothorax. Cardiomediastinal contours: Unremarkable Bones: No acute osseous abnormality. IMPRESSION: 1. Right internal jugular catheter good position no pneumothorax. ATED BY: MIGUEL HENDRICKS Jr., DO DICTATED DATE/TIME: 09/17/252110 SIGNED BY: MIGUEL HENDRICKS Jr., SIGNED DATE/TIME: 09/17/252110 CC: Condition at Discharge: Stable Final Diagnosis/Problems List #Acute generalized weakness likely due to acute on chronic normocytic hypochromic #Anemia in the setting of myelodysplastic syndrome # hypotension due to hypovolemia due to severe anemia #Acute on chronic pancytopenia due to myelodysplastic syndrome #Uncontrolled type 2 diabetes mellitus with hyperglycemia # hemosiderosis, #Moderate glenohumeral osteoarthritis #Hypertensive heart disease with diastolic/systolic dysfunction # Hyperlipidemia #History of ischemic stroke Discharge Disposition: Home Discharge Instruct/Medications Diet: Cardiac 2g Na,low cholest Activity: Light activity Follow Up/Referral: DC clinic PCP Oncology Medications: As prescribed Scheduled Atorvastatin Calcium (Atorvastatin Calcium), 1 TAB PO DAILY, (Reported) Citalopram Hydrobromide (Celexa), 1 TAB PO DAILY, (Reported) Empagliflozin (Jardiance), 1 TAB PO DAILY, (Reported) Gabapentin (Gabapentin), 1,200 MG PO DAILY, (Reported) Lisinopril (Lisinopril), 40 MG PO DAILY, (Reported) Nifedipine (Nifedipine Er), 1 TAB PO DAILY, (Reported) Scheduled PRN Alprazolam (Xanax), 1 TAB PO DAILY PRN Hydrocodone-Acetaminophen (Hydrocodone/Acetaminophen 5-325 mg), 1 TAB PO BIDPRN PRN for PAIN SCALE 1 THRU 6, (Reported) Miscellaneous Medications Magnesium Citrate (Magnesium Citrate), PO, (Reported) Semaglutide (Ozempic), (Reported) Sennosides-Docusate Sodium (Stimulant Laxative 8.6-50 mg), PO, (Reported) Trazodone Hcl (Trazodone Hcl), 100 MG PO, (Reported) Discharge Statement: "Patient was advised to return to the ER or call 911 if any headaches, dizziness, shortness of breath, chest pain, abdominal pain, bleeding, fevers, or worsening of medical condition. Patient was counseled about treatment plan, medications, possible side effects, patientverbalized understanding. All questions were answered to the best of my ability. This discharge took greater then 30 minutes in planning, reviewing documentation, counseling the patient, and discussing with other team members." ASSESSMENT ASSESSMENT Assessment Myelodysplastic syndrome Symptomatic anemia Iron overload Visit Coding STANDARD RES Billing Provider: HORACIO BAILON MD Date of Service if different f: Sep 20, 2025 Common Visit Codes: [id number] INP/OBS CARE(HIGH), 13572-DOQ/OBS DISCH DAY >30min RICARDO ROE RESIDENT Sep 20, 2025 15:36
== END 2025-09-20 13:35 | disposition home or self-care (01) | DRG 812 ==
LOC: ER 19:37 → OVERFLOW 09-18 01:45 → TELE-EAST 09-18 16:25
PROVIDERS: ADMIT Internal Medicine Geriatric Medicine; ATTEND Internal Medicine Geriatric Medicine
PROC: 30233N1 Transfusion of Nonautologous Red Blood Cells into Peripheral Vein, Percutaneous Approach (ICD-10-PCS; principal; 2025-09-18)
DX: D46.9 Myelodysplastic syndrome, unspecified (principal); D61.818 Other pancytopenia; E86.1 Hypovolemia; E11.65 Type 2 diabetes mellitus with hyperglycemia; D50.9 Iron deficiency anemia, unspecified; E11.40 Type 2 diabetes mellitus with diabetic neuropathy, unspecified; E66.9 Obesity, unspecified; I50.42 Chronic combined systolic (congestive) and diastolic (congestive) heart failure; I11.0 Hypertensive heart disease with heart failure; F32.A Depression, unspecified; E78.5 Hyperlipidemia, unspecified; Z86.73 Personal history of transient ischemic attack (TIA), and cerebral infarction without residual deficits; M19.012 Primary osteoarthritis, left shoulder; Z68.35 Body mass index [BMI] 35.0-35.9, adult; Z79.899 Other long term (current) drug therapy
CPT/HCPCS: 36415; 71045; 73030; 74181; 80048; 80053; 81001; 82728; 82962; 83540; 83550; 83735; 83880; 84484; 85014; 85018; 85025; 85610; 85730; 86850; 86900; 86901; 86902; 86922; G0378; J1815; J1885; J7060